=== PATIENT | male | born 1965 | race Caucasian/White ===

== ENCOUNTER 2023-10-17 16:21 | Outpatient (OUT) | payer OTHER, SELFPAY ==
--- NOTE | 2023-10-17 16:50 | XR_ITS ---
The [address] [address] Patient Name: FRANCESCA JHAVERI MRN: [id number] date: 1965 Sex: M Assigned Patient Location: LAB Current Patient Location: LAB Accession/Order Number: [id number] Exam Date: 10/17/2023 16:52 Report Date: 10/17/2023 17:07 At the request of: KATARINA MADRIGAL Procedure: XR chest 2V EXAM: XR chest 2V HISTORY: shortness of breath R06.02 for 4 days. COMPARISON: 02/15/2023 TECHNIQUE: Upright PA and lateral chest x-ray FINDINGS: A very small amount of residual interstitial change and pleural changes are seen in the left mid and lower lung, with some interval improvement. No acute infiltrate, effusion or pneumothorax is otherwise identified. The heart is not enlarged and the vasculature is not distended. Multiple sternal wire sutures and mediastinal clips are present. The osseous structures are grossly intact. XR/XR chest 2V IMPRESSION: Residual changes are seen in the mid and inferior aspect of the left lung, with some interval improvement. The current findings are probably chronic in nature. There is no new infiltrate, effusion or pneumothorax is identified. Electronically authenticated by: DIEGO VELAZQUEZ Date: 10/17/2023 17:07
[2023-10-17 17:00] LABS: Hematocrit 37.5 % (42.0-54.0); Hemoglobin 11.7 g/dL (14.0-18.0); Mean Corpuscular HGB Conc 31.2 g/dL (29.9-35.2); Mean Corpuscular Hemoglobin 31.6 pg (25.9-34.0); Mean Corpuscular Volume 101.4 fL (80.0-94.0); Mean Platelet Volume 10.2 fL (9.5-13.5); Platelet Count 251 10^3/uL (150-450); Red Cell Distribution Width 14.6 % (11.0-15.0); White Blood Count 11.1 10^3/uL (4.0-11.0)
[2023-10-17 17:29] LABS: Anion Gap 19.6; BUN Creatinine Ratio 15.1; Calcium 9.7 mg/dL (8.5-10.1); Carbon Dioxide 21.6 mmol/L (21.0-32.0); Chloride 105 mmol/L (98-107); Estimated GFR (African America 23 (>=60); Estimated GFR (Non-African Ame 19 (>=60); Glucose 128 mg/dL (74-106); Potassium 4.2 mmol/L (3.5-5.1); Sodium 142 mmol/L (136-145); Troponin I High Sensitivity 4.7 pg/mL (4.0-76.1)
[2023-10-17 18:17] LABS: Bilirubin Urine NEGATIVE (NEGATIVE); Blood Urine NEGATIVE (NEGATIVE); Clarity Urine CLEAR (CLEAR); Color Urine YELLOW (YELLOW); Glucose Urine UA 250 mg/dL (NEGATIVE); Ketones Urine NEGATIVE (NEGATIVE); Leukocyte Esterase Urine SMALL (NEGATIVE); Nitrite Urine NEGATIVE (NEGATIVE); Protein Urine 30 mg/dL (NEG/TRACE); Urobilinogen Urine 0.2 EU/dL (0.2-1.0); pH Urine 5.5 (5.0-9.0)
[2023-10-17 18:32] LABS: Band Neutrophils Absolute 0.1 10^3/uL (0.0-0.3); Lymphocytes Absolute Manual 0.66 10^3/uL (1.20-3.80); Monocytes Absolute Manual 0.44 10^3/uL (0.30-0.80); Segmented Neut Absolute Manual 9.87 10^3/uL (1.4-6.5)
[2023-10-17 18:45] LABS: Urine Microscopic Indicated YES
[2023-10-17 19:07] LABS: Bacteria Urine MODERATE #/HPF (NONE SEEN); Cast Seen? NONE SEEN #/LPF (NONE SEEN); Crystals Seen? None Seen #/HPF (None Seen); Mucus Urine NONE SEEN (NONE SEEN); RBC Urine 0-2 #/HPF (0-2); Squamous Epithelial Cell Urine RARE #/LPF (NONE/RARE); Urine Culture Indicated YES
[2023-10-17 19:21] LABS: Estimated Average Glucose 100 mg/dL; Glycohemoglobin A1C 5.1 % (4.5-6.2)
== END 2023-10-17 16:22 | disposition home or self-care (01) ==
LOC: LAB 16:25
PROVIDERS: PCP Family Medicine; Visit Provider Family Medicine
DX: R06.02 Shortness of breath (principal); Z79.899 Other long term (current) drug therapy; E11.65 Type 2 diabetes mellitus with hyperglycemia; R35.89 Other polyuria; I50.32 Chronic diastolic (congestive) heart failure; I25.10 Atherosclerotic heart disease of native coronary artery without angina pectoris
CPT/HCPCS: 36415; 71046; 80048; 81001; 83036; 83880; 84484; 85007; 85027; 87086; 87150; 87186

== ENCOUNTER 2023-11-18 09:55 | Emergency (ER) | payer OTHER, SELFPAY ==
[2023-11-18] VITALS (31 sets, daily range): BP systolic 76–110; BP diastolic 39–67; PULSE 69–90; RESP 4–20; TEMP 36.4; O2SAT 98; BMI 22.7
--- OUTSIDE RECORDS SUMMARY | 2023-11-18 10:14 | XMS_ITS | CCD ---
Author Name Unknown Address [address] [place] [address] Organization [facility] Care Team Providers Care Boot Lace Cutter Machine Name Role Phone PHYSICIAN, DEFAULT Unavailable Unavailable PHYSICIAN, DEFAULT Unavailable Unavailable NADERER, KATARINA Unavailable Unavailable PHYSICIAN, DEFAULT Unavailable Unavailable PHYSICIAN, DEFAULT Unavailable Unavailable NADERER, KATARINA Unavailable Unavailable Ana Anuja Unavailable SAMSA ., JERE Procedure Practitioner Unavailab dipika PAUL ., DR SMALLS Attending Unavailable HOY ., DR SMALLS Consulting Unavailable HOY ., DR SMALLS Admitting Unavailable NADERER, DR KATARINA Peña Primary Care Unavailable NADERER, DR KATARINA Peña Procedure Practitioner Mago LIZARRAGA, DR DEEDEE Krishna Consulting Unavailable NADERER, DR KATARINA Peña Consulting Unavailable SAMSA ., JERE Consulting Unavailable AGUBOSIM, BRANDIN Consulting Unavailable LONG, KAPIL Consulting Unavailable JOHAN, BRANDON Consulting Unavailable BETTY ., DERRICK Consulting Unavailable SAID, BINOR Consulting Unavailable DANIEL, AMAR Consulting Unavailable NADERETomi, DR KATARINA Peña Admitting Unavailable NADERER, DR KATARINA Peña Attending Unavailable NADERER, DR KATARINA Peña Primary Care Unavailable NADERER, DR KATARINA Peña Consulting Unavailable DENVER COX Attending Unavailable DENVER COX Consulting Unavailable DENVER COX Admitting Unavailable NADERER, DR KATARINA Peña Primary Care Unavailable NADERER, DR KATARINA Peña Primary Care Unavailable NADERER, DR KATARINA Peña Admitting Unavailable NADERER, DR KATARINA Peña Attending Unavailable NADERER, DR KATARINA Peña Consulting Unavailable NADERER, DR KATARINA Peña Primary Care Unavailable NADERER, DR KATARINA Peña Admitting Unavailable NADERER, DR KATARINA Peña Attending Unavailable NADERER, DR KATARINA Peña Consulting Unavailable NADERER, DR KATARINA Peña Primary Care Unavailable ROHAN, DR KATARINA Peña Admitting Unavailable ROHAN, DR KATARINA Peña Attending Unavailable ROHAN, DR KATARINA Peña Consulting Unavailable [place], DR FRANCESCA Haynes Consulting Unavailable JIM ., JERE Attending Unavailable JIM Maldonado, JERE Admitting Unavailable ROHAN, DR KATARINA Peña Primary Care Unavailable ROHAN, DR KATARINA Peña Referring Unavailable JERE EVANS Consulting Unavailable DENVER COX Attending Unavailable LAWRENCE CHANG Attending Unavailable ROHAN, KATARINA Attending Unavailable ROHAN, KATARINA Attending Unavailable Medications Current Medications Medication Drug Class(es) Dates Sig (Normalized) Sig (Original) acetaminophen 500 mg oral tablet (1 source) take 2 tablets by mouth every six hours as needed Acetaminophen 500 mg 2 tablet as needed Orally every 6 hrs Active aspirin 81 mg chewable tablet (1 source) Platelet Aggregation Inhibitor, Nonsteroidal Anti-inflammatory Drug take 1 tablet by mouth every twenty-four hours Aspirin 81 MG 1 tablet Orally Once a day Active atorvastatin 40 mg oral tablet (1 source) HMG-CoA Reductase Inhibitor take 1 tablet by mouth every twenty-four hours Lipitor 40 MG 1 tablet Orally Once a day Active 12 hr dextromethorphan hydrobromide 30 mg / guaiFENesin 600 mg extended release oral tablet (1 source) Uncompetitive O-egpeom-X-asparta te Receptor Antagonist, Sigma-1 Agonist Start: 2 take 1 tablet by mouth every twelve hours Mucinex DM 30-600 MG 1 tablet as needed Orally every 12 hrs May, Active doxycycline monohydrate 100 mg oral capsule (1 source) Tetracycline-class Drug Start: 2 take 1 capsule by mouth every twelve hours Doxycycline Monohydrate 100 MG 1 capsule Orally every 12 hrs for 7 days May, Active methylPREDNISolone 4 mg oral tablet (1 source) Corticosteroid Start: 2 methylPREDNISolone 4 MG as directed Orally Once a day for 6 days May, Active metoprolol tartrate 50 mg oral tablet (1 source) beta-Adrenergic [place] take 1 tablet by mouth every twelve hours Metoprolol Tartrate 50 MG 1 tablet with food Orally Twice a day Active omeprazole 40 mg delayed release oral capsule (1 source) Proton Pump Inhibitor take 1 capsule by mouth every twelve hours Omeprazole 40 mg 1 capsule Orally bid Active traMADol hydrochloride 50 mg oral tablet (1 source) Opioid Agonist take 1 tablet by mouth every six hours traMADol HCl 50 MG 1 tablet as needed Orally every 6 hrs Active Problems Active Problems Problem Classification Problem Date Documented Date Episodic/Chronic Allergic reactions (1 source) Allergic contact dermatitis due to plants, except food Episodic Asthma (1 source) Mild intermittent asthma, uncomplicated; Translations: [MILD INTERMIT ASTHMA UNCOMPLICATED] Onset: 2 Chronic Chronic kidney disease (2 sources) Chronic kidney disease stage 3; Translations: [Chronic kidney disease, stage 3 (moderate)] Chronic Chronic kidney disease (1 source) Chronic kidney disease; Translations: [CHRONIC KIDNEY DISEASE STAGE 3A] Onset: 2 Coronary atherosclerosis and other heart disease (7 sources) Atherosclerotic heart disease of [place] coronary artery without angina pectoris; Translations: [ASHD [place] W/O ANGINA PECTORIS] Onset: 2 Chronic Deficiency and other anemia (1 source) Anemia of renal disease; Translations: [Anemia in chronic kidney disease] Chronic Diabetes mellitus with complications (4 sources) Type 2 diabetes mellitus; Translations: [Type 2 diabetes mellitus with diabetic chronic kidney disease] Onset: 2 Chronic Essential hypertension (3 sources) Essential (primary) hypertension; Translations: [ESSENTIAL PRIMARY HYPERTENSION] Onset: 3 Chronic Hypertension with complications and secondary hypertension (4 sources) Hypertensive renal disease; Translations: [Hypertensive chronic kidney disease with stage 1 through stage 4 chronic kidney disease, or unspecified chronic kidney disease] Onset: 2 Chronic Immunizations and screening for infectious disease (1 source) Contact with and (suspected) exposure to other viral communicable diseases Episodic Nutritional deficiencies (1 source) Vitamin D deficiency, unspecified; Translations: [VITAMIN D DEFICIENCY UNSPECIFIED] Onset: 3 Chronic Other diseases of kidney and ureters (1 source) Secondary hyperparathyroidism; Translations: [Secondary hyperparathyroidism of renal origin] Chronic Other screening for suspected conditions (not mental disorders or infectious disease) (2 sources) Encounter for screening for malignant neoplasm of prostate; Translations: [Other specified abnormal findings of blood chemistry] Onset: 2 Episodic Unclassified (1 source) CONTACT W/AND (SUSP) EXPOS COVID-19; Translations: [CONTACT W/AND (SUSP) EXPOS COVID-19] Onset: 2 Past or Other Problems Problem Classification Problem Date Documented Da te Episodic/Chronic Coronary atherosclerosis and other heart disease (1 source) Presence of aortocoronary bypass graft; Translations: [PRESENCE AORTOCORONARY BYPASS GRAFT] Onset: 03-30-2022 Episodic Lymphadenitis (1 source) Generalized enlarged lymph nodes; Translations: [GENERALIZED ENLARGED LYMPH NODES] Onset: 03-30-2022 Episodic Other aftercare (1 source) ferry terminal supervisor (current) use of aspirin; Translations: [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 CURRENT USE OF ASPIRIN] Onset: 03-30-2022 Episodic Other aftercare (1 source) Other halfway (current) drug therapy; Translations: [OTH CARE HOME CURRENT DRUG THERAPY] Onset: 03-30-2022 Episodic Other gastrointestinal disorders (1 source) Diarrhea, unspecified; Translations: [DIARRHEA UNSPECIFIED] Onset: 03-30-2022 Episodic Other lower respiratory disease (3 sources) Other forms of dyspnea; Translations: [OTHER FORMS OF DYSPNEA] Onset: 12-01-2022 Episodic Other lower respiratory disease (1 source) Other disorders of lung; Translations: [OTHER DISORDERS OF LUNG] Onset: 04-07-2022 Episodic Other lower respiratory disease (1 source) Solitary pulmonary nodule; Translations: [SOLITARY PULMONARY NODULE] Onset: 03-30-2022 Episodic Pleurisy; pneumothorax; pulmonary collapse (1 source) Pleurisy; Translations: [PLEURISY] Onset: 03-30-2022 Episodic Pneumonia (except that caused by tuberculosis or sexually transmitted disease) (5 sources) Pneumonia, unspecified organism; Translations: [PNEUMONIA UNSPECIFIED ORGANISM] Onset: 03-30-2022 Episodic Screening and history of mental health and substance abuse codes (1 source) Personal history of nicotine dependence; Translations: [PERSONAL HISTORY OF NICOTINE DEPEND] Onset: 03-30-2022 Episodic Septicemia (except in labor) (3 sources) Sepsis, unspecified organism; Translations: [SEPSIS UNSPECIFIED ORGANISM] Onset: 03-15-2022 Episodic Viral infection (1 source) COVID-19 Results Test Name Value Interpretation Reference Range Facility Office Visiton 06-21-2023 Follow-up visit [id number] Francesca Jhaveri 1965 M Date Provider Department Center 06/21/2023 [facility] Laura Bates Family History Problem Relation Age of Onset Hypertension Father Family Status - Relation Status Age at Father Level of Service:76697 DC OFFICE/OUTPATIENT ESTABLISHED MOD MDM 30-39 MIN [facility] 36on 03-03-2023 36 I updated my last office note from November with the clearance. Thanks [facility] 36 Did he have ECHO done? [facility] ECHOCARDIO M/2D COMPLETEon 0 12-20-2022 ECHOCARDIO M/2D COMPLETE Patient: FRANCESCA JHAVERI Exam Date: 12/20/2022 : 1965 Gender:M Ordering : [facility] Admission #: [id number] Family : DR KATARINA MADRIGAL . Order #: [id number] CLICK HERE TO VIEW EXAM ECHOCARDIOGRAM REPORT PROCEDURE: CARDIO PULMONARY ECHOCARDIO M/2D COMP INDICATIONS: Dyspnea on exertion, hypertension, CABG x 3 COMPARISON: None. DESCRIPTION: COMPLETE ECHOCARDIOGRAM Real-time transthoracic echocardiography with 2D, M-mode, spectral and color flow Doppler performed. QUALITY: Technical quality was good. LEFT VENTRICLE: Normal chamber size. Normal left ventricular wall thickness. Systolic function is at the lower limits of normal. LV EF: Lower limits of normal left ventricular ejection fraction, (50-55%). DIASTOLIC: Grade I diastolic dysfunction. ATRIAL SEPTUM: Visually appears intact. LEFT ATRIUM: Normal chamber size. RIGHT ATRIUM: Normal chamber size. RIGHT VENTRICLE: Normal chamber size. Normal right ventricular systolic function. TRICUSPID VALVE: Normal mobility and thickness. No stenosis with trivial regurgitation. No evidence of pulmonary hypertension. RVSP 28 mmHg MITRAL VALVE: Normal mobility and thickness. No evidence of mitral valve stenosis. There is no mitral annular calcification. Trivial mitral regurgitation. AORTIC VALVE: Normal trileaflet appearance. No visible sclerosis. Normal leaflet mobility. No evidence of aortic valve stenosis. No aortic regurgitation. AORTIC ROOT: Normal diameter and appearance. PULMONIC VALVE: Normal thickness and mobility. No stenosis. Trivial regurgitation. PERICARDIUM: No evidence of pericardial effusion. IVC: Collapses with inspirations. PLEURA: CONCLUSION: 1. Left ventricular systolic function is at the lower limits of normal. LVEF is 50-55%. 2. Normal right ventricular size and systolic function. 3. Grade I diastolic dysfunction. 4. No significant valvular dysfunction. 5. Normal right sided pressures. Adult Echocardiography Procedure Report Left Ventricle LVEDD (3.7 - 5.6 cm): 4.60 cm LVESD (2.2 - 4.0 cm): 2.84 cm LVIVS thickness (0.6 - 1.2 cm): 0.97 cm LVPW thickness (0.5 - 1.0 cm): 0.94 cm e': 0.13 m/s E - e': 4.97 LVOT Max Gradient: 2.49 mm[Hg] Peak Velocity (LVOT): 0.79 m/s Mean Velocity (LVOT): 0.44 m/s LVOT Diameter 2.25 cm Left Ventricular Ejection Fraction: 50-55 % Left Atrium LA Volume Index (2D A2C): 51.45 ml, 51.45 ml Left Atrium Systolic Dimension: 3.58 cm Mitral Valve MV E to A Ratio: 0.87 Mitral Valve A-Wave Peak Velocity: 0.76 m/s Mitral Valve E-Wave Peak Velocity: 0.66 m/s Right Ventricle Aorta AO Root Diam: 2.87 cm Aortic Valve AoV Area (Peak Omega): 2.44 cm2, 2.44 cm2 AoV Area (VTI): 2.37 cm2, 2.37 cm2 Peak Velocity(Antegrade Flow): 1.28 m/s Peak Gradient(Antegrade Flow): 6.59 mm[Hg] Mean Velocity(Antegrade Flow): 0.83 m/s Mean Gradient(Antegrade Flow): 3.17 mm[Hg] Velocity Time Integral: 26.47 cm Tricuspid Valve Peak Velocity (Regurgitant Flow): 2.34 m/s, 2.48 m/s Peak Velocity: 0.41 m/s Pulmonic Valve Mean Gradient: 2.38 mm[Hg], 2.16 mm[Hg] Mean Velocity: 0.73 m/s, 0.69 m/s Peak Velocity: 1.01 m/s, 0.98 m/s Peak Gradient: 4.10 mm[Hg], 3.81 mm[Hg] Right Atrium Right Atrium Systolic Pressure: 28.58 ml, 28.58 ml Dictated by: John Lucas M.D. on 12/21/2022 at 17:18 Approved by: John Lucas M.D. on 12/21/2022 at 17:27 [facility] Office Visiton 12-01-2022 Follow-up visit [id number] Francesca Jhaveri 1965 M Date Provider Department Center 12/01/2022 [facility] Family History Problem Relation Age of Onset Hypertension Father Family Status - Relation Status Age at Father Level of Service:04389 DC OFFICE/OUTPATIENT ESTABLISHED MOD MDM 30-39 MIN Reason for Visit and Comments: Coronary Artery Disease [187] Hypertension [127582] Hyperlipidemia [182] Peripheral Vascular Disease [458] Normal [facility] CBC AUTO DIFFon 11-15-2022 BASO # 0.1 103/ul Normal 0.0-0.1 [facility] Comment on above: Performed By: #### A 1C #### [facility] [address] [place] [address] Dr. Fred Bell Basophils/100 WBC (Bld) 0.9 % Normal 0.2-2.0 [facility] Comment on above: Performed By: #### A 1C #### [facility] [address] [place] [address] Dr. Fred Bell EO # 0.3 103/ul Normal 0.0-0.7 [facility] Comment on above: Performed By: #### A 1C #### [facility] [address] [place] [address] Dr. Fred Bell Eosinophils/100 WBC (Bld) 2.9 % Normal 0.9-7.0 [facility] Comment on above: Performed By: #### A 1C #### [facility] [address] [place] [address] Dr. Fred Bell Erythrocyte distribution width (RBC) [Ratio] 14.3 % Normal 11.0-15.0 [facility] Comment on above: Performed By: #### A 1C #### [facility] [address] [place] [address] Dr. Fred Bell Hematocrit (Bld) [Volume fraction] 41.6 % Critically low 42.0-54.0 [facility] Comment on above: Performed By: #### A 1C #### [facility] [address] [place] [address] Dr. Fred Bell Hemoglobin (Bld) [Mass/Vol] 13.6 g/dL Critically low 14.0-18.0 [facility] Comment on above: Performed By: #### A 1C #### [facility] [address] [place] [address] Dr. Fred Bell IG # 0.03 10e3/ul Normal 0.00-0.03 [facility] Comment on above: Performed By: #### A 1C #### [facility] [address] [place] [address] Dr. Fred Bell IG % 0.4 % Normal 0.0-0.5 [facility] Comment on above: Performed By: #### A 1C #### [facility] [address] [place] [address] Dr. Fred Bell LYMPH # 2.0 103/ul Normal 1.2-3.8 [facility] Comment on above: Performed By: #### A 1C #### [facility] [address] [place] [address] Dr. Fred Bell Lymphocytes/100 WBC (Bld) 23.3 % Normal 20.5-60.0 [facility] Comment on above: Performed By: #### A 1C #### [facility] [address] [place] [address] Dr. Fred Bell MANUAL DIFF REQ NO Normal [facility] Comment on above: Performed By: #### A 1C #### [facility] [address] [place] [address] Dr. Fred Bell MCH (RBC) [Entitic mass] 29.8 pg Normal 25.9-34.0 [facility] Comment on above: Performed By: #### A 1C #### [facility] [address] [place] [address] Dr. Fred Bell MCHC (RBC) [Mass/Vol] 32.7 g/dL Normal 29.9-35.2 [facility] Comment on above: Performed By: #### A 1C #### [facility] [address] [place] [address] Dr. Fred Bell MCV (RBC) [Entitic vol] 91.0 fL Normal 80.0-94.0 [facility] Comment on above: Performed By: #### A 1C #### [facility] [address] [place] [address] Dr. Fred Bell MONO # 0.6 103/ul Normal 0.3-0.8 [facility] Comment on above: Performed By: #### A 1C #### [facility] [address] [place] [address] Dr. Fred Bell Monocytes/100 WBC (Bld) 6.7 % Normal 1.7-12.0 [facility] Comment on above: Performed By: #### A 1C #### [facility] [address] [place] [address] Dr. Fred Bell NEUT # 5.6 103/ul Normal 1.4-6.5 [facility] Comment on above: Performed By: #### A 1C #### [facility] [address] [place] [address] Dr. Fred Bell Neutrophils/100 WBC (Bld) 65.8 % Normal 43.0-75.0 [facility] Comment on above: Performed By: #### A 1C #### [facility] [address] [place] [address] Dr. Fred Bell Platelet mean volume (Bld) [Entitic vol] 9.7 fL Normal 9.5-13.5 [facility] Comment on above: Performed By: #### A 1C #### [facility] [address] [place] [address] Dr. Fred Bell PLT 289 103/ul Normal 150-450 [facility] Comment on above: Performed By: #### A 1C #### [facility] [address] [place] [address] Dr. Fred Bell RBC 4.57 106/ul Critically low 4.70-6.10 [facility] Comment on above: Performed By: #### A 1C #### [facility] [address] [place] [address] Dr. Fred Bell WBC 8.5 103/ul Normal 4.0-11.0 [facility] Comment on above: Performed By: #### A 1C #### [facility] [address] [address] [address] Fred Bell GLYCOHEMOGLOBIN A1Con 2022 ADA RECOMMENDATION SEE BELOW Normal [facility] Comment on above: Result Comment: ADA RECOMMENDED LIMIT 4.0 - 6.0 ADA THERAPEUTIC TARGET < 7.0 ACTION SUGGESTED > 7.0 Performed By: #### A 1C #### [facility] [address] [address] [address] Fred Bell Glucose [Mass/Vol] 111 mg/dL Normal [facility] Comment on above: Performed By: #### A 1C #### [facility] [address] [place] [address] Dr. Fred Bell HbA1c (Bld) [Mass fraction] 5.5 % Normal 4.5-6.2 [facility] Comment on above: Performed By: #### A 1C #### [facility] [address] [address] [address] Fred Bell LIPID PROFILEon 11-15-2022 CHOL-HDL RATIO NORM SEE BELOW Normal [facility] Comment on above: Result Comment: 3.3 - 4.4 LOW RISK 4.4 - 7.1 AVERAGE RISK 7.1 - 11.0 MODERATE RISK >11.0 HIGH RISK Performed By: #### V ANCT #### [facility] [address] [place] [address] Dr. Fred Bell Cholesterol [Mass/Vol] 210 mg/dL Critically high <=200 [facility] Comment on above: Performed By: #### V ANCT #### [facility] [address] [address] [address] Fred Bell Cholesterol in HDL [Mass/Vol] 101 mg/dL Critically high 40-60 [facility] Comment on above: Performed By: #### V ANCT #### [facility] [address] [address] [address] Fred Bell Cholesterol in LDL [Mass/Vol] 94.2 mg/dL Normal [facility] Comment on above: Performed By: #### V ANCT #### [facility] [address] [place] [address] Dr. Fred Bell Cholesterol.total/Ch olesterol in HDL [Mass ratio] 2.1 {ratio} Normal [facility] Comment on above: Performed By: #### V ANCT #### [facility] [address] [place] [address] Dr. Fred Bell HDL NORMAL > or = 60 mg/dl - LOW CARDIOVASCULAR RISK <40 mg/dl - HIGH CARDIOVASCULAR RISK Normal [facility] Comment on above: Performed By: #### V ANCT #### [facility] [address] [place] [address] Dr. Fred Bell LDL CALC NORMAL SEE BELOW Normal [facility] Comment on above: Result Comment: <100 mg/dl OPTIMAL 100 - 129 mg/dl NEAR OR ABOVE OPTIMAL 130 - 159 mg/dl BORDERLINE HIGH 160 - 189 mg/dl HIGH >190 mg/dl VERY HIGH Performed By: #### V ANCT #### [facility] [address] [place] [address] Dr. Fred Bell Triglyceride [Mass/Vol] 74 mg/dL Normal <=150 [facility] Comment on above: Performed By: #### V ANCT #### [facility] [address] [place] [address] Dr. Fred Bell VLDL CALC 14.8 mg/dL Normal [facility] Comment on above: Performed By: #### V ANCT #### [facility] [address] [place] [address] Dr. Fred Bell LIVER PROFILEon 11-15-2022 Albumin [Mass/Vol] 4.2 g/dL Normal 3.4-5.0 [facility] Comment on above: Performed By: #### V ANCT #### [facility] [address] [place] [address] Dr. Fred Bell Albumin/Globulin [Mass ratio] 1.0 {ratio} Normal [facility] Comment on above: Performed By: #### V ANCT #### [facility] [address] [place] [address] Dr. Fred Bell ALP [Catalytic activity/Vol] 154 U/L Critically high 46-116 [facility] Comment on above: Performed By: #### V ANCT #### [facility] [address] [address] [address] Fred Bell ALT [Catalytic activity/Vol] 33 U/L Normal 16-63 [facility] Comment on above: Performed By: #### V ANCT #### [facility] [address] [address] [address] Fred Bell AST [Catalytic activity/Vol] 40 U/L Critically high 15-37 [facility] Comment on above: Performed By: #### V ANCT #### [facility] [address] [address] [address] Fred Bell BILI, CONJUGATED 0.2 mg/dL Normal 0.0-0.2 [facility] Comment on above: Performed By: #### V ANCT #### [facility] [address] [address] [address] Fred Bell Bilirubin [Mass/Vol] 0.8 mg/dL Normal 0.2-1.0 [facility] Comment on above: Performed By: #### V ANCT #### [facility] [address] [address] [address] Fred Bell Globulin (S) [Mass/Vol] 4.1 g/dL Normal [facility] Comment on above: Performed By: #### V ANCT #### [facility] [address] [address] [address] Fred Bell Protein [Mass/Vol] 8.3 g/dL Critically high 6.4-8.2 [facility] Comment on above: Performed By: #### V ANCT #### [facility] [address] [address] [address] Fred Bell PROF CHEM 8 (BAS METB)on Anion gap [Moles/Vol] 14.5 mmol/L Normal [facility] Comment on above: Performed By: #### V ANCT #### [facility] [address] [address] [address] Fred Bell Calcium [Mass/Vol] 9.4 mg/dL Normal 8.5-10.1 [facility] Comment on above: Performed By: #### V ANCT #### [facility] [address] [place] [address] Dr. Fred Bell Chloride [Moles/Vol] 104 mmol/L Normal 98-107 [facility] Comment on above: Performed By: #### V ANCT #### [facility] [address] [place] [address] Dr. Fred Bell CO2 [Moles/Vol] 26.6 mmol/L Normal 21.0-32.0 [facility] Comment on above: Performed By: #### V ANCT #### [facility] [address] [place] [address] Dr. Fred Bell Creatinine [Mass/Vol] 1.55 mg/dL Critically high 0.70-1.30 [facility] Comment on above: Performed By: #### V ANCT #### [facility] [address] [place] [address] Dr. Fred Bell EGFR-AF CAMEROONIAN 56 mL/min/1.73m2 Critically low >=60 [facility] Comment on above: Performed By: #### V ANCT #### [facility] [address] [place] [address] Dr. Fred Bell EGFR-NON AF CAMEROONIAN 47 mL/min/1.73m2 Critically low >=60 [facility] Comment on above: Performed By: #### V ANCT #### [facility] [address] [place] [address] Dr. Fred Bell Glucose [Mass/Vol] 95 mg/dL Normal 74-106 [facility] Comment on above: Performed By: #### V ANCT #### [facility] [address] [place] [address] Dr. Fred Bell Potassium [Moles/Vol] 4.1 mmol/L Normal 3.5-5.1 [facility] Comment on above: Performed By: #### V ANCT #### [facility] [address] [place] [address] Dr. Fred Bell Sodium [Moles/Vol] 141 mmol/L Normal 136-145 [facility] Comment on above: Performed By: #### V ANCT #### [facility] [address] [place] [address] Dr. Fred Bell Urea nitrogen [Mass/Vol] 23.0 mg/dL Critically high 7.0-18.0 [facility] Comment on above: Performed By: #### V ANCT #### [facility] [address] [place] [address] Dr. Fred Bell Urea nitrogen/Creatinine [Mass ratio] 14.8 mg/mg Normal [facility] Comment on above: Performed By: #### V ANCT #### [facility] [address] [place] [address] Dr. Fred Bell TSHon 11-15-2022 TSH 0.726 uIU/mL Normal 0.358-3.740 [facility] Comment on above: Performed By: #### V ANCT #### [facility] [address] [place] [address] Dr. Fred Bell VITAMIN D 25 OHon 11-15-2022 VIT D 25-OH 33.2 ng/mL Normal [facility] Comment on above: Performed By: #### V ANCT #### [facility] [address] [place] [address] Dr. Fred Bell VIT D RANGES SEE BELOW Normal [facility] Comment on above: Result Comment: <20 ng/mL Vit D deficient 20 - <30 ng/mL Vit D insufficient 30 - 100 ng/mL Vit D sufficient >100 ng/mL Potential Toxicity Performed By: #### V ANCT #### [facility] [address] [place] [address] Dr. Fred Bell COVID Quick Testingon 2021 Result Positive Chideo Other ACID FAST SMEAR AND CXon Acid Fast Culture Negative Normal [facility] Comment on above: Result Comment: No a raven fast bacilli isolated after 6 weeks. Performed By: #### B MP #### [facility] [address] [place] [address] Dr. Fred Bell Acid Fast Smear Negative Normal [facility] Comment on above: Performed By: #### B MP #### [facility] [address] [address] [address] Fred Bell AFB Specimen Processing Concentration Normal [facility] Comment on above: Performed By: #### B MP #### [facility] [address] [address] [address] Fred Bell FUNGAL CULTUREon 04-14-2022 Fungus (Mycology) Culture Final report [facility] Comment on above: Performed By: #### B MP #### [facility] [address] [address] [address] Fred Bell Fungus Stain Final report Normal [facility] Comment on above: Performed By: #### B MP #### [facility] [address] [place] [address] Dr. Fred Bell Result [address] [facility] Comment on above: Result Comment: ELIE/ Calcofluor preparation: no fungus observed. Performed By: #### B MP #### [facility] [address] [place] [address] Dr. Fred Bell Result Comment: No y east or mold isolated after [address] CHEST WO CONon 04-06-2022 CT CHEST WO CON EXAMINATION: CT CHEST WO CON HISTORY: Pneumonia COMPARISON: 03/18/2022 TECHNIQUE: Multi-planar CT images were created with IV contrast. Axial, Coronal, and Sagittal images. Dose reduction techniques were achieved by using automated exposure control and/or adjustment of mA and/or kV according to patient size and/or use of iterative reconstruction technique. FINDINGS: LUNGS: Interval change in configuration of left lung cavitary masses with persistent ill-defined areas, the largest is an irregular soft tissue attenuation mass measuring 8.3 x 3.8 cm on axial image 69 measuring 3.8 cm in craniocaudal dimension. There is associated parenchymal distortion and peribronchial thickening. PLEURA: 1.3 cm left pleural effusion VASCULATURE: No abnormality. REGAN: bilateral hilar lymph nodes, grossly stable MEDIASTINUM: pretracheal and subcarinal lymph nodes, stable in number and size CARDIAC: No enlargement or pericardial effusion. Atherosclerosis. AORTA: No aneurysm or dissection. CHEST WALL: No mass or axillary adenopathy. BONES: Remote posterior rib fractures. Median sternotomy wires. LIMITED ABDOMEN: No suspicious findings. Limited images of the upper abdomen. OTHER: Negative. IMPRESSION: Interval change in configuration of left lung soft tissue masses with architectural distortion pleural effusion and peribronchial thickening. Stable hilar and mediastinal lymphadenopathy. Healing inflammatory, infectious or granulomatous process is suspected. Malignancy is not excluded. Consider PET/CT to evaluate metabolic status Electronically authenticated by: FRANCESCA BUENO Date: 2022-04-05 22:22 Normal [facility] CREATININEon 04-05-2022 Creatinine [Mass/Vol] 1.80 mg/dL Critically high 0.70-1.30 [facility] Comment on above: Performed By: #### P OCGLUC #### [facility] [address] [place] [address] Dr. Fred Bell EGFR-AF CAMEROONIAN 48 mL/min/1.73m2 Critically low >=60 [facility] Comment on above: Performed By: #### P OCGLUC #### [facility] [address] [place] [address] Dr. Fred Bell EGFR-NON AF CAMEROONIAN 39 mL/min/1.73m2 Critically low >=60 [facility] Comment on above: Performed By: #### P OCGLUC #### [facility] [address] [place] [address] Dr. Fred Bell BUNon 03-30-2022 Urea nitrogen [Mass/Vol] 22.0 mg/dL Critically high 7.0-18.0 [facility] Comment on above: Performed By: #### B MP #### [facility] [address] [place] [address] Dr. Fred Bell CBC AUTO DIFFon 03-30-2022 BASO # 0.2 103/ul Critically high 0.0-0.1 [facility] Comment on above: Performed By: #### C DIFPOC #### [facility] [address] [place] [address] Dr. Fred Bell Basophils/100 WBC (Bld) 1.8 % Normal 0.2-2.0 [facility] Comment on above: Performed By: #### C DIFPOC #### [facility] [address] [place] [address] Dr. Fred Bell EO # 0.6 103/ul Normal 0.0-0.7 [facility] Comment on above: Performed By: #### C DIFPOC #### [facility] [address] [place] [address] Dr. Fred Bell Eosinophils/100 WBC (Bld) 4.8 % Normal 0.9-7.0 [facility] Comment on above: Performed By: #### C DIFPOC #### [facility] [address] [place] [address] Dr. Fred Bell Erythrocyte distribution width (RBC) [Ratio] 17.7 % Critically high 11.0-15.0 [facility] Comment on above: Performed By: #### C DIFPOC #### [facility] [address] [place] [address] Dr. Fred Bell Hematocrit (Bld) [Volume fraction] 27.0 % Critically low 42.0-54.0 [facility] Comment on above: Performed By: #### C DIFPOC #### [facility] [address] [place] [address] Dr. Fred Bell Hemoglobin (Bld) [Mass/Vol] 8.4 g/dL Critically low 14.0-18.0 [facility] Comment on above: Performed By: #### C DIFPOC #### [facility] [address] [place] [address] Dr. Fred Bell IG # 0.04 10e3/ul Critically high 0.00-0.[address] [facility] Comment on above: Performed By: #### C DIFPOC #### [facility] [address] [place] [address] Dr. Fred Bell IG % 0.3 % Normal 0.0-0.5 [facility] Comment on above: Performed By: #### C DIFPOC #### [facility] [address] [place] [address] Dr. Fred Bell LYMPH # 2.1 103/ul Normal 1.2-3.8 [facility] Comment on above: Performed By: #### C DIFPOC #### [facility] [address] [place] [address] Dr. Fred Bell Lymphocytes/100 WBC (Bld) 17.2 % Critically low 20.5-60.0 [facility] Comment on above: Performed By: #### C DIFPOC #### [facility] [address] [place] [address] Dr. Fred Bell MANUAL DIFF REQ NO Normal [facility] Comment on above: Performed By: #### C DIFPOC #### [facility] [address] [place] [address] Dr. Fred Bell MCH (RBC) [Entitic mass] 27.9 pg Normal 25.9-34.0 [facility] Comment on above: Performed By: #### C DIFPOC #### [facility] [address] [place] [address] Dr. Fred Bell MCHC (RBC) [Mass/Vol] 31.1 g/dL Normal 29.9-35.2 [facility] Comment on above: Performed By: #### C DIFPOC #### [facility] [address] [place] [address] Dr. Fred Bell MCV (RBC) [Entitic vol] 89.7 fL Normal 80.0-94.0 [facility] Comment on above: Performed By: #### C DIFPOC #### [facility] [address] [place] [address] Dr. Fred Bell MONO # 0.6 103/ul Normal 0.3-0.8 [facility] Comment on above: Performed By: #### C DIFPOC #### [facility] [address] [place] [address] Dr. Fred Bell Monocytes/100 WBC (Bld) 5.1 % Normal 1.7-12.0 [facility] Comment on above: Performed By: #### C DIFPOC #### [facility] [address] [place] [address] Dr. Fred Bell NEUT # 8.5 103/ul Critically high 1.4-6.5 [facility] Comment on above: Performed By: #### C DIFPOC #### [facility] [address] [place] [address] Dr. Fred Bell Neutrophils/100 WBC (Bld) 70.8 % Normal 43.0-75.0 [facility] Comment on above: Performed By: #### C DIFPOC #### [facility] [address] [place] [address] Dr. Fred Bell Platelet mean volume (Bld) [Entitic vol] 9.1 fL Critically low 9.5-13.5 [facility] Comment on above: Performed By: #### C DIFPOC #### [facility] [address] [place] [address] Dr. Fred Bell PLT 599 103/ul Critically high 150-450 [facility] Comment on above: Performed By: #### C DIFPOC #### [facility] [address] [place] [address] Dr. Fred Bell RBC 3.01 106/ul Critically low 4.70-6.10 [facility] Comment on above: Performed By: #### C DIFPOC #### [facility] [address] [place] [address] Dr. Fred Bell WBC 11.9 103/ul Critically high 4.0-11.0 [facility] Comment on above: Performed By: #### C DIFPOC #### [facility] [address] [place] [address] Dr. Fred Bell CREATININEon 03-30-2022 Creatinine [Mass/Vol] 1.89 mg/dL Critically high 0.70-1.30 [facility] Comment on above: Performed By: #### B MP #### [facility] [address] [place] [address] Dr. Fred Bell EGFR-AF CAMEROONIAN 45 mL/min/1.73m2 Critically low >=60 [facility] Comment on above: Performed By: #### B MP #### [facility] [address] [place] [address] Dr. Fred Bell EGFR-NON AF CAMEROONIAN 37 mL/min/1.73m2 Critically low >=60 [facility] Comment on above: Performed By: #### B MP #### [facility] [address] [address] [address] Fred Bell VANCOMYCIN TROUGHon 03-30-20 22 VANCOMYCIN TROUGH 13.5 ug/ml Normal 5.0-20.0 [facility] Comment on above: Performed By: #### A 1C #### [facility] [address] [address] [address] Fred Bell CREATININEon 03-25-2022 Creatinine [Mass/Vol] 1.88 mg/dL Critically high 0.70-1.30 [facility] Comment on above: Performed By: #### P OCGLUC #### [facility] [address] [place] [address] Dr. Fred Bell EGFR-AF CAMEROONIAN 45 mL/min/1.73m2 Critically low >=60 [facility] Comment on above: Performed By: #### P OCGLUC #### [facility] [address] [place] [address] Dr. Fred Bell EGFR-NON AF CAMEROONIAN 37 mL/min/1.73m2 Critically low >=60 [facility] Comment on above: Performed By: #### P OCGLUC #### [facility] [address] [place] [address] Dr. Fred Bell VANCOMYCIN RANDOMon 03-25-20 22 VANCOMYCIN RANDOM 17.6 ug/ml Normal [facility] Comment on above: Performed By: #### V ANCT #### [facility] [address] [place] [address] Dr. Fred Bell CBC AUTO DIFFon 03-23-2022 BASO # 0.2 103/ul Critically high 0.0-0.1 [facility] Comment on above: Performed By: #### P OCGLUC #### [facility] [address] [place] [address] Dr. Fred Bell Basophils/100 WBC (Bld) 0.8 % Normal 0.2-2.0 [facility] Comment on above: Performed By: #### P OCGLUC #### [facility] [address] [address] [address] Fred Bell EO # 0.6 103/ul Normal 0.0-0.7 [facility] Comment on above: Performed By: #### P OCGLUC #### [facility] [address] [address] [address] Fred Bell Eosinophils/100 WBC (Bld) 3.0 % Normal 0.9-7.0 [facility] Comment on above: Performed By: #### P OCGLUC #### [facility] [address] [address] [address] Fred Bell Erythrocyte distribution width (RBC) [Ratio] 16.5 % Critically high 11.0-15.0 [facility] Comment on above: Performed By: #### P OCGLUC #### [facility] [address] [place] [address] Dr. Fred Bell Hematocrit (Bld) [Volume fraction] 26.9 % Critically low 42.0-54.0 [facility] Comment on above: Performed By: #### P OCGLUC #### [facility] [address] [place] [address] Dr. Fred Bell Hemoglobin (Bld) [Mass/Vol] 8.0 g/dL Critically low 14.0-18.0 [facility] Comment on above: Performed By: #### P OCGLUC #### [facility] [address] [address] [address] Fred Bell IG # 0.33 10e3/ul Critically high 0.00-0.[address] [facility] Comment on above: Performed By: #### P OCGLUC #### [facility] [address] [address] [address] Fred Bell IG % 1.8 % Critically high 0.0-0.5 [facility] Comment on above: Performed By: #### P OCGLUC #### [facility] [address] [place] [address] Dr. Fred Bell LYMPH # 2.1 103/ul Normal 1.2-3.8 [facility] Comment on above: Performed By: #### P OCGLUC #### [facility] [address] [address] [address] Fred Bell Lymphocytes/100 WBC (Bld) 11.1 % Critically low 20.5-60.0 [facility] Comment on above: Performed By: #### P OCGLUC #### [facility] [address] [address] [address] Fred Bell MANUAL DIFF REQ NO Normal [facility] Comment on above: Performed By: #### P OCGLUC #### [facility] [address] [address] [address] Fred Bell MCH (RBC) [Entitic mass] 26.8 pg Normal 25.9-34.0 [facility] Comment on above: Performed By: #### P OCGLUC #### [facility] [address] [place] [address] Dr. Fred Bell MCHC (RBC) [Mass/Vol] 29.7 g/dL Critically low 29.9-35.2 [facility] Comment on above: Performed By: #### P OCGLUC #### [facility] [address] [place] [address] Dr. Fred Bell MCV (RBC) [Entitic vol] 90.0 fL Normal 80.0-94.0 [facility] Comment on above: Performed By: #### P OCGLUC #### [facility] [address] [place] [address] Dr. Fred Bell MONO # 1.0 103/ul Critically high 0.3-0.8 [facility] Comment on above: Performed By: #### P OCGLUC #### [facility] [address] [place] [address] Dr. Fred Bell Monocytes/100 WBC (Bld) 5.2 % Normal 1.7-12.0 [facility] Comment on above: Performed By: #### P OCGLUC #### [facility] [address] [place] [address] Dr. Fred Bell NEUT # 14.5 103/ul Critically high 1.4-6.5 [facility] Comment on above: Performed By: #### P OCGLUC #### [facility] [address] [address] [address] Fred Bell Neutrophils/100 WBC (Bld) 78.1 % Critically high 43.0-75.0 [facility] Comment on above: Performed By: #### P OCGLUC #### [facility] [address] [address] [address] Fred Bell Platelet mean volume (Bld) [Entitic vol] 8.9 fL Critically low 9.5-13.5 [facility] Comment on above: Performed By: #### P OCGLUC #### [facility] [address] [address] [address] Fred Bell PLT 705 103/ul Critically high 150-450 [facility] Comment on above: Performed By: #### P OCGLUC #### [facility] [address] [address] [address] Fred Bell RBC 2.99 106/ul Critically low 4.70-6.10 [facility] Comment on above: Performed By: #### P OCGLUC #### [facility] [address] [address] [address] Fred Bell WBC 18.5 103/ul Critically high 4.0-11.0 [facility] Comment on above: Performed By: #### P OCGLUC #### [facility] [address] [address] [address] Fred Bell CREATININEon 03-23-2022 Creatinine [Mass/Vol] 1.88 mg/dL Critically high 0.70-1.30 [facility] Comment on above: Performed By: #### C DIFPOC #### [facility] [address] [address] [address] Fred Bell EGFR-AF CAMEROONIAN 45 mL/min/1.73m2 Critically low >=60 [facility] Comment on above: Performed By: #### C DIFPOC #### [facility] [address] [address] [address] Fred Bell EGFR-NON AF CAMEROONIAN 37 mL/min/1.73m2 Critically low >=60 [facility] Comment on above: Performed By: #### C DIFPOC #### [facility] [address] [place] [address] Dr. Fred Bell VANCOMYCIN TROUGHon 03-23-20 VANCOMYCIN TROUGH 25.7 ug/ml Critically high 5.0-20.0 [facility] Comment on above: Performed By: #### V ANCT #### [facility] [address] [place] [address] Dr. Fred Bell CBC AUTO DIFFon 03-19-2022 BASO # 0.1 103/ul Normal 0.0-0.1 [facility] Comment on above: Performed By: #### C BC #### [facility] [address] [place] [address] Dr. Fred Bell Basophils/100 WBC (Bld) 0.3 % Normal 0.2-2.0 [facility] Comment on above: Performed By: #### C BC #### [facility] [address] [place] [address] Dr. Fred Bell EO # 0.4 103/ul Normal 0.0-0.7 [facility] Comment on above: Performed By: #### C BC #### [facility] [address] [place] [address] Dr. Fred Bell Eosinophils/100 WBC (Bld) 1.7 % Normal 0.9-7.0 [facility] Comment on above: Performed By: #### C BC #### [facility] [address] [place] [address] Dr. Fred Bell Erythrocyte distribution width (RBC) [Ratio] 16.4 % Critically high 11.0-15.0 [facility] Comment on above: Performed By: #### C BC #### [facility] [address] [place] [address] Dr. Fred Bell Hematocrit (Bld) [Volume fraction] 34.0 % Critically low 42.0-54.0 [facility] Comment on above: Performed By: #### C BC #### [facility] [address] [place] [address] Dr. Fred Bell Hemoglobin (Bld) [Mass/Vol] 10.1 g/dL Critically low 14.0-18.0 [facility] Comment on above: Performed By: #### C BC #### [facility] [address] [place] [address] Dr. Fred Bell IG # 0.17 10e3/ul Critically high 0.00-0.[address] [facility] Comment on above: Performed By: #### C BC #### [facility] [address] [place] [address] Dr. Fred Bell IG % 0.8 % Critically high 0.0-0.5 [facility] Comment on above: Performed By: #### C BC #### [facility] [address] [place] [address] Dr. Fred Bell LYMPH # 2.0 103/ul Normal 1.2-3.8 [facility] Comment on above: Performed By: #### C BC #### [facility] [address] [place] [address] Dr. Fred Bell Lymphocytes/100 WBC (Bld) 8.9 % Critically low 20.5-60.0 [facility] Comment on above: Performed By: #### C BC #### [facility] [address] [place] [address] Dr. Fred Bell MANUAL DIFF REQ NO Normal [facility] Comment on above: Performed By: #### C BC #### [facility] [address] [place] [address] Dr. Fred Bell MCH (RBC) [Entitic mass] 26.8 pg Normal 25.9-34.0 [facility] Comment on above: Performed By: #### C BC #### [facility] [address] [place] [address] Dr. Fred Bell MCHC (RBC) [Mass/Vol] 29.7 g/dL Critically low 29.9-35.2 [facility] Comment on above: Performed By: #### C BC #### [facility] [address] [place] [address] Dr. Fred Bell MCV (RBC) [Entitic vol] 90.2 fL Normal 80.0-94.0 [facility] Comment on above: Performed By: #### C BC #### [facility] [address] [address] [address] Fred Bell MONO # 1.5 103/ul Critically high 0.3-0.8 [facility] Comment on above: Performed By: #### C BC #### [facility] [address] [address] [address] Fred Bell Monocytes/100 WBC (Bld) 6.7 % Normal 1.7-12.0 [facility] Comment on above: Performed By: #### C BC #### [facility] [address] [place] [address] Dr. Fred Bell NEUT # 18.0 103/ul Critically high 1.4-6.5 [facility] Comment on above: Performed By: #### C BC #### [facility] [address] [place] [address] Dr. Fred Bell Neutrophils/100 WBC (Bld) 81.6 % Critically high 43.0-75.0 [facility] Comment on above: Performed By: #### C BC #### [facility] [address] [place] [address] Dr. Fred Bell Platelet mean volume (Bld) [Entitic vol] 8.7 fL Critically low 9.5-13.5 [facility] Comment on above: Performed By: #### C BC #### [facility] [address] [address] [address] Fred Bell PLT 552 103/ul Critically high 150-450 [facility] Comment on above: Performed By: #### C BC #### [facility] [address] [place] [address] Dr. Fred Bell RBC 3.77 106/ul Critically low 4.70-6.10 [facility] Comment on above: Performed By: #### C BC #### [facility] [address] [place] [address] Dr. Fred Bell WBC 22.1 103/ul Critically high 4.0-11.0 [facility] Comment on above: Performed By: #### C BC #### [facility] [address] [place] [address] Dr. Fred Bell LOWER RESPIRATORY CULTUREon 03-19-2022 Lower Respiratory Culture Final report Normal [facility] Comment on above: Performed By: #### A 1C #### [facility] [address] [place] [address] Dr. Fred Bell Result [address] [facility] Comment on above: Result Comment: Rout ine respiratory kathya Performed By: #### A 1C #### [facility] [address] [place] [address] Dr. Fred Bell POINT OF CARE GLUCOSEon 02-25 Glucose [Mass/Vol] 114 mg/dL Critically high 74-106 T [facility] Comment on above: Performed By: #### C BC #### [facility] [address] [place] [address] Dr. Fred Bell PROF CHEM 8 (BAS METB)on Anion gap [Moles/Vol] 14.5 mmol/L Normal [facility] Comment on above: Performed By: #### B MP #### [facility] [address] [place] [address] Dr. Fred Bell Calcium [Mass/Vol] 8.8 mg/dL Normal 8.5-10.1 [facility] Comment on above: Performed By: #### B MP #### [facility] [address] [place] [address] Dr. Fred Bell Chloride [Moles/Vol] 108 mmol/L Critically high 98-107 [facility] Comment on above: Performed By: #### B MP #### [facility] [address] [place] [address] Dr. Fred Bell CO2 [Moles/Vol] 24.4 mmol/L Normal 21.0-32.0 [facility] Comment on above: Performed By: #### B MP #### [facility] [address] [place] [address] Dr. Fred Bell Creatinine [Mass/Vol] 1.38 mg/dL Critically high 0.70-1.30 [facility] Comment on above: Performed By: #### B MP #### [facility] [address] [address] [address] Fred Bell EGFR-AF CAMEROONIAN >60 Normal >=60 [facility] Comment on above: Performed By: #### B MP #### [facility] [address] [address] [address] Fred Bell EGFR-NON AF CAMEROONIAN 53 mL/min/1.73m2 Critically low >=60 [facility] Comment on above: Performed By: #### B MP #### [facility] [address] [address] [address] Fred Bell Glucose [Mass/Vol] 82 mg/dL Normal 74-106 [facility] Comment on above: Performed By: #### B MP #### [facility] [address] [address] [address] Fred Bell Potassium [Moles/Vol] 3.9 mmol/L Normal 3.5-5.1 [facility] Comment on above: Performed By: #### B MP #### [facility] [address] [address] [address] Fred Bell Sodium [Moles/Vol] 143 mmol/L Normal 136-145 [facility] Comment on above: Performed By: #### B MP #### [facility] [address] [address] [address] Fred Bell Urea nitrogen [Mass/Vol] 11.0 mg/dL Normal 7.0-18.0 [facility] Comment on above: Performed By: #### B MP #### [facility] [address] [address] [address] Fred Bell Urea nitrogen/Creatinine [Mass ratio] 8.0 mg/mg Normal [facility] Comment on above: Performed By: #### B MP #### [facility] [address] [place] [address] Dr. Fred Bell VANCOMYCIN TROUGHon 03-19-20 22 VANCOMYCIN TROUGH 22.8 ug/ml Critically high 5.0-20.0 e [facility] Comment on above: Performed By: #### A 1C #### [facility] [address] [place] [address] Dr. Fred Vega. DIFF PCRon 03-18-2022 C. DIFFICILE PCR Negative Normal NEGATIVE [facility] Comment on above: Performed By: #### C DIFPOC #### [facility] [address] [place] [address] Dr. Fred Bell CBC W MANUAL DIFFon 03-18-20 ATYPICAL LYMPH # Normal [facility] Comment on above: Performed By: #### C BC #### [facility] [address] [place] [address] Dr. Fred Bell ATYPICAL LYMPH % Normal [facility] Comment on above: Performed By: #### C BC #### [facility] [address] [place] [address] Dr. Fred Bell BAND # Normal 0.0-0.3 [facility] Comment on above: Performed By: #### C BC #### [facility] [address] [place] [address] Dr. Fred Bell BAND % Normal 0-5 [facility] Comment on above: Performed By: #### C BC #### [facility] [address] [place] [address] Dr. Fred Bell BASOM # 0.00 103/ul Normal 0.00-0.10 [facility] Comment on above: Performed By: #### C BC #### [facility] [address] [place] [address] Dr. Fred Bell BASOM % 0.0 % Critically low 0.2-2.0 [facility] Comment on above: Performed By: #### C BC #### [facility] [address] [place] [address] Dr. Fred Bell BLAST # Normal [facility] Comment on above: Performed By: #### C BC #### [facility] [address] [place] [address] Dr. Fred Bell BLAST % Normal [facility] Comment on above: Performed By: #### C BC #### [facility] [address] [address] [address] Fred Bell CORRECTED WBC Normal 4.0-11.0 [facility] Comment on above: Performed By: #### C BC #### [facility] [address] [place] [address] Dr. Fred Bell EOS # 0.00 103/ul Normal 0.00-0.70 [facility] Comment on above: Performed By: #### C BC #### [facility] [address] [place] [address] Dr. Fred Bell EOS% 0.0 % Critically low 0.9-7.0 [facility] Comment on above: Performed By: #### C BC #### [facility] [address] [place] [address] Dr. Fred Bell HCT 28.1 % Critically low 42.0-54.0 [facility] Comment on above: Performed By: #### C BC #### [facility] [address] [place] [address] Dr. Fred Bell HGB 8.4 g/dl Critically low 14.0-18.0 [facility] Comment on above: Performed By: #### C BC #### [facility] [address] [place] [address] Dr. Fred Bell HYPERSEG NEUT 2+ Normal [facility] Comment on above: Performed By: #### C BC #### [facility] [address] [place] [address] Dr. Fred Bell HYPOCHROMASIA 2+ Normal [facility] Comment on above: Performed By: #### C BC #### [facility] [address] [place] [address] Dr. Fred Bell LYMPHM # 0.77 103/ul Critically low 1.20-3.80 [facility] Comment on above: Performed By: #### C BC #### [facility] [address] [place] [address] Dr. Fred Bell LYMPHM% 3.0 % Critically low 20.5-60.[address] [facility] Comment on above: Performed By: #### C BC #### [facility] [address] [place] [address] Dr. Fred Bell MCH 26.8 pg Normal 25.9-34.0 [facility] Comment on above: Performed By: #### C BC #### [facility] [address] [place] [address] Dr. Fred Bell MCHC 29.9 g/dl Normal 29.9-35.2 [facility] Comment on above: Performed By: #### C BC #### [facility] [address] [place] [address] Dr. Fred Bell MCV 89.5 fL Normal 80.0-94.0 [facility] Comment on above: Performed By: #### C BC #### [facility] [address] [place] [address] Dr. Fred Bell METAMYELOCYTE # Normal [facility] Comment on above: Performed By: #### C BC #### [facility] [address] [place] [address] Dr. Fred Bell METAMYELOCYTE % Normal [facility] Comment on above: Performed By: #### C BC #### [facility] [address] [place] [address] Dr. Fred Bell MONOM# 1.02 103/ul Critically high 0.30-0.80 [facility] Comment on above: Performed By: #### C BC #### [facility] [address] [place] [address] Dr. Fred Bell MONOM% 4.0 % Normal 1.7-12.0 [facility] Comment on above: Performed By: #### C BC #### [facility] [address] [place] [address] Dr. Fred Bell MPV 8.6 fL Critically low 9.5-13.5 [facility] Comment on above: Performed By: #### C BC #### [facility] [address] [place] [address] Dr. Fred Bell MYELOCYTE # Normal [facility] Comment on above: Performed By: #### C BC #### [facility] [address] [address] [address] Fred Bell MYELOCYTE % Normal [facility] Comment on above: Performed By: #### C BC #### [facility] [address] [address] [address] Fred Bell NRBC Normal [facility] Comment on above: Performed By: #### C BC #### [facility] [address] [address] [address] Fred Bell PLT 530 103/ul Critically high 150-450 [facility] Comment on above: Performed By: #### C BC #### [facility] [address] [address] [address] Fred Bell RBC 3.14 106/ul Critically low 4.70-6.10 [facility] Comment on above: Performed By: #### C BC #### [facility] [address] [address] [address] Fred Bell RDW 16.5 % Critically high 11.0-15.0 [facility] Comment on above: Performed By: #### C BC #### [facility] [address] [address] [address] Fred Bell SEG # 23.71 103/ul Critically high 1.40-6.[address] [facility] Comment on above: Performed By: #### C BC #### [facility] [address] [address] [address] Fred Bell SEG % 93.0 % Critically high 43.0-75.0 [facility] Comment on above: Performed By: #### C BC #### [facility] [address] [address] [address] Fred Bell WBC 25.5 103/ul Critically high 4.0-11.0 [facility] Comment on above: Performed By: #### C BC #### [facility] [address] [address] [address] CHEST WO CONon 03-18-2022 CT CHEST WO CON EXAMINATION: CT CHEST WO CON HISTORY: Cavitary pneumonia ; follow-up pneumonia COMPARISON: CT chest 03/15/2022 TECHNIQUE: Axial, Coronal, and Sagittal images were created without the administration of IV contrast material. Dose reduction techniques were achieved by using automated exposure control and/or adjustment of mA and/or kV according to patient size and/or use of iterative reconstruction technique. FINDINGS: LUNGS: Stable appearance of several thick-walled cavitary lesions within left upper and lower lobes with prominent surrounding infiltrates. Largest cavity is approximately 7.5 cm. PLEURA: No mass, effusion, or pneumothorax. VASCULATURE: No abnormality. REGAN: Lymphadenopathy. MEDIASTINUM: Lymphadenopathy. CARDIAC: No enlargement or pericardial thickening. AORTA: No aneurysm or dissection. CHEST WALL: No mass or axillary adenopathy. BONES: No bone lesion or fracture. LIMITED ABDOMEN: No suspicious findings. Limited images of the upper abdomen. OTHER: Negative. IMPRESSION: 1. No appreciable change in the left lung cavitary lesions and prominent surrounding infiltrates. 2. No appreciable change in the mediastinal and hilar mild-moderate lymphadenopathy. 3. No new findings. Electronically authenticated by: DEEDEE LIZARRAGA Date: 2022-03-18 13:[address] [facility] POINT OF CARE GLUCOSEon - Glucose [Mass/Vol] 96 mg/dL Normal 74-106 [facility] Comment on above: Performed By: #### A 1C #### [facility] [address] [place] [address] Dr. Fred Bell Glucose [Mass/Vol] 82 mg/dL Normal 74-106 [facility] Comment on above: Performed By: #### B MP #### [facility] [address] [place] [address] Dr. Fred Bell Glucose [Mass/Vol] 119 mg/dL Critically high 74-106 [facility] Comment on above: Performed By: #### P OCGLUC #### [facility] [address] [place] [address] Dr. Fred Bell Glucose [Mass/Vol] 110 mg/dL Critically high 74-106 [facility] Comment on above: Performed By: #### P OCGLUC #### [facility] [address] [place] [address] Dr. Fred Bell PROF CHEM 8 (BAS METB)on Anion gap [Moles/Vol] 13.8 mmol/L Normal [facility] Comment on above: Performed By: #### V ANCT #### [facility] [address] [place] [address] Dr. Fred Bell Calcium [Mass/Vol] 8.3 mg/dL Critically low 8.5-10.1 [facility] Comment on above: Performed By: #### V ANCT #### [facility] [address] [address] [address] Fred Bell Chloride [Moles/Vol] 110 mmol/L Critically high 98-107 [facility] Comment on above: Performed By: #### V ANCT #### [facility] [address] [place] [address] Dr. Fred Bell CO2 [Moles/Vol] 22.0 mmol/L Normal 21.0-32.0 [facility] Comment on above: Performed By: #### V ANCT #### [facility] [address] [place] [address] Dr. Fred Bell Creatinine [Mass/Vol] 1.36 mg/dL Critically high 0.70-1.30 [facility] Comment on above: Performed By: #### V ANCT #### [facility] [address] [place] [address] Dr. Fred Bell EGFR-AF CAMEROONIAN >60 Normal >=60 [facility] Comment on above: Performed By: #### V ANCT #### [facility] [address] [address] [address] Fred Bell EGFR-NON AF CAMEROONIAN 54 mL/min/1.73m2 Critically low >=60 [facility] Comment on above: Performed By: #### V ANCT #### [facility] [address] [address] [address] Fred Bell Glucose [Mass/Vol] 173 mg/dL Critically high 74-106 [facility] Comment on above: Performed By: #### V ANCT #### [facility] [address] [address] [address] Fred Bell Potassium [Moles/Vol] 3.8 mmol/L Normal 3.5-5.1 [facility] Comment on above: Performed By: #### V ANCT #### [facility] [address] [place] [address] Dr. Fred Bell Sodium [Moles/Vol] 142 mmol/L Normal 136-145 [facility] Comment on above: Performed By: #### V ANCT #### [facility] [address] [place] [address] Dr. Fred Bell Urea nitrogen [Mass/Vol] 13.0 mg/dL Normal 7.0-18.0 [facility] Comment on above: Performed By: #### V ANCT #### [facility] [address] [place] [address] Dr. Fred Bell Urea nitrogen/Creatinine [Mass ratio] 9.6 mg/mg Normal [facility] Comment on above: Performed By: #### V ANCT #### [facility] [address] [place] [address] Dr. Fred Bell SPUTUM CULTUREon 03-18-2022 Epithelial cells LM Ql (Urine sed) None seen Normal [facility] Comment on above: Performed By: #### P OCGLUC #### [facility] [address] [place] [address] Dr. Fred Bell Gram Stain Evaluation Comment Normal [facility] Comment on above: Result Comment: This specimen is of good quality and is acceptable for routine bacterial culture. Performed By: #### P OCGLUC #### [facility] [address] [place] [address] Dr. Fred Bell Lower Respiratory Culture Final report Normal [facility] Comment on above: Performed By: #### P OCGLUC #### [facility] [address] [place] [address] Dr. Fred Bell Result 1 TNP Normal [facility] Comment on above: Result Comment: Test not performed Performed By: #### P OCGLUC #### [facility] [address] [place] [address] Dr. Fred Bell Result [address] [facility] Comment on above: Result Comment: Rout ine respiratory kathya Performed By: #### P OCGLUC #### [facility] [address] [place] [address] Dr. Fred Bell Result [address] [facility] Comment on above: Performed By: #### P OCGLUC #### [facility] [address] [place] [address] Dr. Fred Bell Result [address] [facility] Comment on above: Performed By: #### P OCGLUC #### [facility] [address] [place] [address] Dr. Fred Bell Result [address] [facility] Comment on above: Performed By: #### P OCGLUC #### [facility] [address] [place] [address] Dr. Fred Bell White Blood Cells None seen Normal [facility] Comment on above: Performed By: #### P OCGLUC #### [facility] [address] [place] [address] Dr. Fred Bell XR CHEST 1 Von 03-18-2022 XR CHEST 1 V EXAM: Portable chest REASON FOR EXAM: Follow-up cavitary pneumonia. TECHNIQUE: A portable frontal view of the chest was obtained. COMPARISON: 03/17/2022. FINDINGS: The lungs are well-inflated. The left lung is unchanged in appearance. The heart and mediastinum are stable in appearance. There is no mass or pathologic adenopathy. Osseous structures are normal. IMPRESSION: Stable exam. Electronically authenticated by: BRANDON PRADO Date: 2022-03-18 08:28 Normal [facility] CBC AUTO DIFFon 03-17-2022 BASO # 0.0 103/ul Normal 0.0-0.1 [facility] Comment on above: Performed By: #### A 1C #### [facility] [address] [place] [address] Dr. Fred Bell Basophils/100 WBC (Bld) 0.1 % Critically low 0.2-2.0 [facility] Comment on above: Performed By: #### A 1C #### [facility] [address] [place] [address] Dr. Fred Bell EO # 0.0 103/ul Normal 0.0-0.7 [facility] Comment on above: Performed By: #### A 1C #### [facility] [address] [place] [address] Dr. Fred Bell Eosinophils/100 WBC (Bld) 0.0 % Critically low 0.9-7.0 [facility] Comment on above: Performed By: #### A 1C #### [facility] [address] [place] [address] Dr. Fred Bell Erythrocyte distribution width (RBC) [Ratio] 16.3 % Critically high 11.0-15.0 [facility] Comment on above: Performed By: #### A 1C #### [facility] [address] [place] [address] Dr. Fred Bell Hematocrit (Bld) [Volume fraction] 29.8 % Critically low 42.0-54.0 [facility] Comment on above: Performed By: #### A 1C #### [facility] [address] [place] [address] Dr. Fred Bell Hemoglobin (Bld) [Mass/Vol] 9.1 g/dL Critically low 14.0-18.0 [facility] Comment on above: Performed By: #### A 1C #### [facility] [address] [place] [address] Dr. Fred Bell IG # 0.16 10e3/ul Critically high 0.00-0.[address] [facility] Comment on above: Performed By: #### A 1C #### [facility] [address] [place] [address] Dr. Fred Bell IG % 0.8 % Critically high 0.0-0.5 [facility] Comment on above: Performed By: #### A 1C #### [facility] [address] [place] [address] Dr. Fred Bell LYMPH # 0.8 103/ul Critically low 1.2-3.8 [facility] Comment on above: Performed By: #### A 1C #### [facility] [address] [place] [address] Dr. Fred Bell Lymphocytes/100 WBC (Bld) 4.1 % Critically low 20.5-60.0 [facility] Comment on above: Performed By: #### A 1C #### [facility] [address] [place] [address] Dr. Fred Bell MANUAL DIFF REQ NO Normal [facility] Comment on above: Performed By: #### A 1C #### [facility] [address] [place] [address] Dr. Fred Bell MCH (RBC) [Entitic mass] 27.3 pg Normal 25.9-34.0 [facility] Comment on above: Performed By: #### A 1C #### [facility] [address] [place] [address] Dr. Fred Bell MCHC (RBC) [Mass/Vol] 30.5 g/dL Normal 29.9-35.2 [facility] Comment on above: Performed By: #### A 1C #### [facility] [address] [place] [address] Dr. Fred Bell MCV (RBC) [Entitic vol] 89.5 fL Normal 80.0-94.0 [facility] Comment on above: Performed By: #### A 1C #### [facility] [address] [place] [address] Dr. Fred Bell MONO # 0.3 103/ul Normal 0.3-0.8 [facility] Comment on above: Performed By: #### A 1C #### [facility] [address] [place] [address] Dr. Fred Bell Monocytes/100 WBC (Bld) 1.5 % Critically low 1.7-12.0 [facility] Comment on above: Performed By: #### A 1C #### [facility] [address] [place] [address] Dr. Fred Bell NEUT # 18.5 103/ul Critically high 1.4-6.5 [facility] Comment on above: Performed By: #### A 1C #### [facility] [address] [place] [address] Dr. Fred Bell Neutrophils/100 WBC (Bld) 93.5 % Critically high 43.0-75.0 [facility] Comment on above: Performed By: #### A 1C #### [facility] [address] [place] [address] Dr. Fred Bell Platelet mean volume (Bld) [Entitic vol] 8.6 fL Critically low 9.5-13.5 [facility] Comment on above: Performed By: #### A 1C #### [facility] [address] [address] [address] Fred Bell PLT 445 103/ul Normal 150-450 [facility] Comment on above: Performed By: #### A 1C #### [facility] [address] [address] [address] Fred Bell RBC 3.33 106/ul Critically low 4.70-6.10 [facility] Comment on above: Performed By: #### A 1C #### [facility] [address] [place] [address] Dr. Fred Bell WBC 19.8 103/ul Critically high 4.0-11.0 [facility] Comment on above: Performed By: #### A 1C #### [facility] [address] [place] [address] Dr. Fred Bell POINT OF CARE GLUCOSEon 02-25 Glucose [Mass/Vol] 153 mg/dL Critically high 74-106 [facility] Comment on above: Performed By: #### P OCGLUC #### [facility] [address] [place] [address] Dr. Fred Bell Glucose [Mass/Vol] 169 mg/dL Critically high 74-106 [facility] Comment on above: Performed By: #### P OCGLUC #### [facility] [address] [place] [address] Dr. Fred Bell Glucose [Mass/Vol] 252 mg/dL Critically high 74-106 [facility] Comment on above: Performed By: #### C DIFPOC #### [facility] [address] [place] [address] Dr. Fred Bell PROF CHEM 8 (BAS METB)on Anion gap [Moles/Vol] 15.1 mmol/L Normal [facility] Comment on above: Performed By: #### C DIFPOC #### [facility] [address] [place] [address] Dr. Fred Bell Calcium [Mass/Vol] 8.8 mg/dL Normal 8.5-10.1 [facility] Comment on above: Performed By: #### C DIFPOC #### [facility] [address] [place] [address] Dr. Fred Bell Chloride [Moles/Vol] 107 mmol/L Normal 98-107 [facility] Comment on above: Performed By: #### C DIFPOC #### [facility] [address] [place] [address] Dr. Fred Bell CO2 [Moles/Vol] 22.1 mmol/L Normal 21.0-32.0 [facility] Comment on above: Performed By: #### C DIFPOC #### [facility] [address] [place] [address] Dr. Fred Bell Creatinine [Mass/Vol] 1.20 mg/dL Normal 0.70-1.30 [facility] Comment on above: Performed By: #### C DIFPOC #### [facility] [address] [place] [address] Dr. Fred Bell EGFR-AF CAMEROONIAN >60 Normal >=60 [facility] Comment on above: Performed By: #### C DIFPOC #### [facility] [address] [place] [address] Dr. Fred Bell EGFR-NON AF CAMEROONIAN >60 Normal >=60 [facility] Comment on above: Performed By: #### C DIFPOC #### [facility] [address] [place] [address] Dr. Fred Bell Glucose [Mass/Vol] 181 mg/dL Critically high 74-106 [facility] Comment on above: Performed By: #### C DIFPOC #### [facility] [address] [place] [address] Dr. Fred Bell Potassium [Moles/Vol] 4.2 mmol/L Normal 3.5-5.1 [facility] Comment on above: Performed By: #### C DIFPOC #### [facility] [address] [address] [address] Fred Bell Sodium [Moles/Vol] 140 mmol/L Normal 136-145 [facility] Comment on above: Performed By: #### C DIFPOC #### [facility] [address] [address] [address] Fred Bell Urea nitrogen [Mass/Vol] 12.0 mg/dL Normal 7.0-18.0 [facility] Comment on above: Performed By: #### C DIFPOC #### [facility] [address] [place] [address] Dr. Fred Bell Urea nitrogen/Creatinine [Mass ratio] 10.0 mg/mg Normal [facility] Comment on above: Performed By: #### C DIFPOC #### [facility] [address] [place] [address] Dr. Fred Bell VANCOMYCIN TROUGHon 03-17-20 VANCOMYCIN TROUGH 16.1 ug/ml Normal 5.0-20.[address] [facility] Comment on above: Performed By: #### V ANCT #### [facility] [address] [place] [address] Dr. Fred Bell XR CHEST 2 Von 03-17-2022 XR CHEST 2 V EXAM: XR CHEST 2 V 03/16/2022 11:20 PM EDT OH001 CLINICAL STATEMENT: SHORTNESS OF BREATH COMPARISON: 03/16/2022 TECHNIQUE: Single AP radiograph of the chest is submitted. FINDINGS: There is stable left upper lobe opacity, cavitary areas and airspace disease. The cardiac silhouette is normal. The costophrenic recesses are sharp. No pneumothorax. The bony elements are unremarkable. IMPRESSION: Stable left upper lobe opacity, cavitary areas and airspace disease FOLLOW-UP: Follow-up as clinically indicated. Electronically authenticated by: AARTI LAYTON Date: 2022-03-17 06:[address] [facility] CBC W MANUAL DIFFon 03-16-20 ATYPICAL LYMPH # Normal [facility] Comment on above: Performed By: #### B MP #### [facility] [address] [place] [address] Dr. Fred Bell ATYPICAL LYMPH % Normal [facility] Comment on above: Performed By: #### B MP #### [facility] [address] [place] [address] Dr. Fred Bell BAND # Normal 0.0-0.3 [facility] Comment on above: Performed By: #### B MP #### [facility] [address] [place] [address] Dr. Fred Bell BAND % Normal 0-5 [facility] Comment on above: Performed By: #### B MP #### [facility] [address] [place] [address] Dr. Fred Bell BASOM # 0.00 103/ul Normal 0.00-0.10 [facility] Comment on above: Performed By: #### B MP #### [facility] [address] [place] [address] Dr. Fred Bell BASOM % 0.0 % Critically low 0.2-2.0 [facility] Comment on above: Performed By: #### B MP #### [facility] [address] [place] [address] Dr. Fred Bell BLAST # Normal [facility] Comment on above: Performed By: #### B MP #### [facility] [address] [place] [address] Dr. Fred Bell BLAST % Normal [facility] Comment on above: Performed By: #### B MP #### [facility] [address] [place] [address] Dr. Fred Bell CORRECTED WBC Normal 4.0-11.0 [facility] Comment on above: Performed By: #### B MP #### [facility] [address] [place] [address] Dr. Fred Bell EOS # 0.21 103/ul Normal 0.00-0.70 [facility] Comment on above: Performed By: #### B MP #### [facility] [address] [place] [address] Dr. Fred Bell EOS% 1.0 % Normal 0.9-7.0 [facility] Comment on above: Performed By: #### B MP #### [facility] [address] [place] [address] Dr. Fred Bell HCT 29.4 % Critically low 42.0-54.0 [facility] Comment on above: Performed By: #### B MP #### [facility] [address] [address] [address] Fred Bell HGB 8.9 g/dl Critically low 14.0-18.0 [facility] Comment on above: Performed By: #### B MP #### [facility] [address] [place] [address] Dr. Fred Bell HYPERSEG NEUT 2+ Normal [facility] Comment on above: Performed By: #### B MP #### [facility] [address] [place] [address] Dr. Fred Bell LYMPHM # 1.71 103/ul Normal 1.20-3.80 [facility] Comment on above: Performed By: #### B MP #### [facility] [address] [place] [address] Dr. Fred Bell LYMPHM% 8.0 % Critically low 20.5-60.0 [facility] Comment on above: Performed By: #### B MP #### [facility] [address] [place] [address] Dr. Fred Bell MCH 27.1 pg Normal 25.9-34.0 [facility] Comment on above: Performed By: #### B MP #### [facility] [address] [place] [address] Dr. Fred Bell MCHC 30.3 g/dl Normal 29.9-35.2 [facility] Comment on above: Performed By: #### B MP #### [facility] [address] [place] [address] Dr. Fred Bell MCV 89.6 fL Normal 80.0-94.0 [facility] Comment on above: Performed By: #### B MP #### [facility] [address] [address] [address] Fred Bell METAMYELOCYTE # Normal [facility] Comment on above: Performed By: #### B MP #### [facility] [address] [place] [address] Dr. Fred Bell METAMYELOCYTE % Normal [facility] Comment on above: Performed By: #### B MP #### [facility] [address] [place] [address] Dr. Fred Bell MONOM# 2.35 103/ul Critically high 0.30-0.80 [facility] Comment on above: Performed By: #### B MP #### [facility] [address] [place] [address] Dr. Fred Bell MONOM% 11.0 % Normal 1.7-12.0 [facility] Comment on above: Performed By: #### B MP #### [facility] [address] [place] [address] Dr. Fred Bell MPV 8.8 fL Critically low 9.5-13.5 [facility] Comment on above: Performed By: #### B MP #### [facility] [address] [place] [address] Dr. Fred Bell MYELOCYTE # Normal [facility] Comment on above: Performed By: #### B MP #### [facility] [address] [place] [address] Dr. Fred Bell MYELOCYTE % Normal [facility] Comment on above: Performed By: #### B MP #### [facility] [address] [place] [address] Dr. Fred Bell NRBC Normal [facility] Comment on above: Performed By: #### B MP #### [facility] [address] [place] [address] Dr. Fred Bell PLT 491 103/ul Critically high 150-450 [facility] Comment on above: Performed By: #### B MP #### [facility] [address] [place] [address] Dr. Fred Bell RBC 3.28 106/ul Critically low 4.70-6.10 [facility] Comment on above: Result Comment: ROUL EUX 3+ Performed By: #### B MP #### [facility] [address] [place] [address] Dr. Fred Bell RDW 16.6 % Critically high 11.0-15.0 [facility] Comment on above: Performed By: #### B MP #### [facility] [address] [address] [address] Fred Bell SEG # 17.12 103/ul Critically high 1.40-6.[address] [facility] Comment on above: Performed By: #### B MP #### [facility] [address] [place] [address] Dr. Fred Bell SEG % 80.0 % Critically high 43.0-75.0 [facility] Comment on above: Performed By: #### B MP #### [facility] [address] [place] [address] Dr. Fred Bell WBC 21.4 103/ul Critically high 4.0-11.0 [facility] Comment on above: Performed By: #### B MP #### [facility] [address] [place] [address] Dr. Fred Bell CYTOLOGYon 03-16-2022 SENT TO REF LAB 03/17/22 Normal [facility] Comment on above: Performed By: #### C BC #### [facility] [address] [place] [address] Dr. Fred Bell GRAM STAINon 03-16-2022 COMMENTS NO ORGANISMS OBSERVED Normal [facility] Comment on above: Performed By: #### B MP #### [facility] [address] [place] [address] Dr. Fred Bell DIPHTHEROIDS Normal [facility] Comment on above: Performed By: #### B MP #### [facility] [address] [place] [address] Dr. Fred Bell EPITHELIALS Normal [facility] Comment on above: Performed By: #### B MP #### [facility] [address] [place], [place] [id number] Dr. Fred Bell FUNGAL ELEMENTS Normal [facility] Comment on above: Performed By: #### B MP #### [facility] [address] [address] [address] Fred Bell GRAM NEG BACILLI Normal [facility] Comment on above: Performed By: #### B MP #### [facility] [address] [address] [address] Fred Bell GRAM NEG DIPPLOCOCCI Normal [facility] Comment on above: Performed By: #### B MP #### [facility] [address] [address] [address] Fred Bell GRAM POS BACILLI Normal [facility] Comment on above: Performed By: #### B MP #### [facility] [address] [address] [address] Fred Bell GRAM POSITIVE COCCI Normal [facility] Comment on above: Performed By: #### B MP #### [facility] [address] [address] [address] Fred Bell GRAM STAIN SOURCE Left upper lobe lavage [facility] Comment on above: Performed By: #### B MP #### [facility] [address] [address] [address] Fred Bell GS_DIPTH [facility] Comment on above: Performed By: #### B MP #### [facility] [address] [address] [address] Fred Bell WBC MODERATE Normal [facility] Comment on above: Performed By: #### B MP #### [facility] [address] [address] [address] Fred Bell POINT OF CARE GLUCOSEon 06-2 Glucose [Mass/Vol] 218 mg/dL Critically high [address] [place] [address] Comment on above: Performed By: #### A 1C #### [facility] [address] [address] [address] Fred Bell Glucose [Mass/Vol] 251 mg/dL Critically high -106 [facility] Comment on above: Performed By: #### P OCGLUC #### [facility] [address] [address] [address] Fred Bell PROF CHEM 8 (BAS METB)on Anion gap [Moles/Vol] 13.9 mmol/L Normal [facility] Comment on above: Performed By: #### B MP #### [facility] [address] [address] [address] Fred Bell Calcium [Mass/Vol] 8.7 mg/dL Normal 8.5-10.1 [facility] Comment on above: Performed By: #### B MP #### [facility] [address] [address] [address] Fred Bell Chloride [Moles/Vol] 106 mmol/L Normal 98-107 [facility] Comment on above: Performed By: #### B MP #### [facility] [address] [address] [address] Fred Bell CO2 [Moles/Vol] 25.4 mmol/L Normal 21.0-32.0 [facility] Comment on above: Performed By: #### B MP #### [facility] [address] [address] [address] Fred Bell Creatinine [Mass/Vol] 1.42 mg/dL Critically high 0.70-1.30 [facility] Comment on above: Performed By: #### B MP #### [facility] [address] [address] [address] Fred Bell EGFR-AF CAMEROONIAN >60 Normal >=60 [facility] Comment on above: Performed By: #### B MP #### [facility] [address] [address] [address] Fred Bell EGFR-NON AF CAMEROONIAN 52 mL/min/1.73m2 Critically low >=60 [facility] Comment on above: Performed By: #### B MP #### [facility] [address] [address] [address] Fred Bell Glucose [Mass/Vol] 121 mg/dL Critically high 74-106 [facility] Comment on above: Performed By: #### B MP #### [facility] [address] [address] [address] Fred Bell Potassium [Moles/Vol] 4.3 mmol/L Normal 3.5-5.1 [facility] Comment on above: Performed By: #### B MP #### [facility] [address] [address] [address] Fred Bell Sodium [Moles/Vol] 141 mmol/L Normal 136-145 [facility] Comment on above: Performed By: #### B MP #### [facility] [address] [address] [address] Fred Bell Urea nitrogen [Mass/Vol] 12.0 mg/dL Normal 7.0-18.0 [facility] Comment on above: Performed By: #### B MP #### [facility] [address] [address] [address] Fred Bell Urea nitrogen/Creatinine [Mass ratio] 8.5 mg/mg Normal [facility] Comment on above: Performed By: #### B MP #### [facility] [address] [address] [address] Fred Bell XR CHEST 2 Von 03-16-2022 XR CHEST 2 V EXAM: XR CHEST 2 V 03/15/2022 11:20 PM EDT OH001 CLINICAL STATEMENT: SHORTNESS OF BREATH COMPARISON: 03/15/2022 TECHNIQUE: PA and lateral radiograph of the chest are submitted. FINDINGS: There is bilateral parenchymal opacity with cavitary areas. May correlate with CT scan of the chest. The cardiac silhouette is normal. Poststernotomy. The costophrenic recesses are sharp. No pneumothorax. The bony elements are unremarkable. IMPRESSION: Bilateral parenchymal opacity with cavitary areas. May correlate with CT scan of the chest. FOLLOW-UP: Follow-up as clinically indicated. Electronically authenticated by: AARTI LAYTON Date: 2022-03-16 06:[address] [facility] BNPon 03-15-2022 Natriuretic peptide B (Bld) [Mass/Vol] 3075.0 pg/mL Critically high <=900.0 [facility] Comment on above: Performed By: #### A 1C #### [facility] [address] [place] [address] Dr. Fred Bell CARDIAC MOUNIKA ADMITon 022 CK [Catalytic activity/Vol] 30 U/L Critically low 39-308 [facility] Comment on above: Performed By: #### V ANCT #### [facility] [address] [place] [address] Dr. Fred Bell CK.MB [Mass/Vol] 0.32 ng/mL Normal <=3.60 [facility] Comment on above: Performed By: #### V ANCT #### [facility] [address] [place] [address] Dr. Fred Bell HSTROP 4.8 pg/mL Normal 4.0-76.1 [facility] Comment on above: Result Comment: CUT- OFF POINTS HAVE BEEN ESTABLISHED BASED ON THE FOURTH UNIVERSAL DEFINITIONS OF MYOCARDIAL INFARCTION. THE UPPER REFERENCE LIMIT (URL) OF TROPONIN, DEFINED THE 99TH PERCENTILE OF cTnI DISTRIBUTION IN A REFERENCE POPULATION, HAS BEEN CONFIRMED THE DECISION THRESHOLD FOR [place] DIAGNOSIS. Performed By: #### V ANCT #### [facility] [address] [place] [address] Dr. Fred Bell DEEPALI 40 ng/mL Normal 16-96 [facility] Comment on above: Performed By: #### V ANCT #### [facility] [address] [place] [address] Dr. Fred Bell CBC AUTO DIFFon 03-15-2022 BASO # 0.1 103/ul Normal 0.0-0.1 [facility] Comment on above: Performed By: #### C BC #### [facility] [address] [place] [address] Dr. Fred Bell Basophils/100 WBC (Bld) 0.3 % Normal 0.2-2.0 [facility] Comment on above: Performed By: #### C BC #### [facility] [address] [place] [address] Dr. Fred Bell EO # 0.1 103/ul Normal 0.0-0.7 [facility] Comment on above: Performed By: #### C BC #### [facility] [address] [address] [address] Fred Bell Eosinophils/100 WBC (Bld) 0.6 % Critically low 0.9-7.0 [facility] Comment on above: Performed By: #### C BC #### [facility] [address] [place] [address] Dr. Fred Bell Erythrocyte distribution width (RBC) [Ratio] 16.7 % Critically high 11.0-15.0 [facility] Comment on above: Performed By: #### C BC #### [facility] [address] [place] [address] Dr. Fred Bell Hematocrit (Bld) [Volume fraction] 35.0 % Critically low 42.0-54.0 [facility] Comment on above: Performed By: #### C BC #### [facility] [address] [place] [address] Dr. Fred Bell Hemoglobin (Bld) [Mass/Vol] 10.8 g/dL Critically low 14.0-18.0 [facility] Comment on above: Performed By: #### C BC #### [facility] [address] [place] [address] Dr. Fred Bell IG # 0.15 10e3/ul Critically high 0.00-0.[address] [facility] Comment on above: Performed By: #### C BC #### [facility] [address] [place] [address] Dr. Fred Bell IG % 0.7 % Critically high 0.0-0.5 [facility] Comment on above: Performed By: #### C BC #### [facility] [address] [place] [address] Dr. Fred Bell LYMPH # 1.1 103/ul Critically low 1.2-3.8 [facility] Comment on above: Performed By: #### C BC #### [facility] [address] [place] [address] Dr. Fred Bell Lymphocytes/100 WBC (Bld) 5.4 % Critically low 20.5-60.0 [facility] Comment on above: Performed By: #### C BC #### [facility] [address] [address] [address] Fred Bell MANUAL DIFF REQ NO Normal [facility] Comment on above: Performed By: #### C BC #### [facility] [address] [address] [address] Fred Bell MCH (RBC) [Entitic mass] 27.1 pg Normal 25.9-34.0 [facility] Comment on above: Performed By: #### C BC #### [facility] [address] [address] [address] Fred Bell MCHC (RBC) [Mass/Vol] 30.9 g/dL Normal 29.9-35.2 [facility] Comment on above: Performed By: #### C BC #### [facility] [address] [place] [address] Dr. Fred Bell MCV (RBC) [Entitic vol] 87.9 fL Normal 80.0-94.0 [facility] Comment on above: Performed By: #### C BC #### [facility] [address] [place] [address] Dr. Fred Bell MONO # 1.4 103/ul Critically high 0.3-0.8 [facility] Comment on above: Performed By: #### C BC #### [facility] [address] [place] [address] Dr. Fred Bell Monocytes/100 WBC (Bld) 6.4 % Normal 1.7-12.0 [facility] Comment on above: Performed By: #### C BC #### [facility] [address] [place] [address] Dr. Fred Bell NEUT # 18.4 103/ul Critically high 1.4-6.5 [facility] Comment on above: Performed By: #### C BC #### [facility] [facility] [address] [place] [address] Dr. Fred Bell Neutrophils/100 WBC (Bld) 86.6 % Critically high 43.0-75.0 [facility] Comment on above: Performed By: #### C BC #### [facility] [address] [address] [address] Fred Bell Platelet mean volume (Bld) [Entitic vol] 8.5 fL Critically low 9.5-13.5 [facility] Comment on above: Performed By: #### C BC #### [facility] [address] [address] [address] Fred Bell PLT 525 103/ul Critically high 150-450 [facility] Comment on above: Performed By: #### C BC #### [facility] [address] [address] [address] Fred Bell RBC 3.98 106/ul Critically low 4.70-6.10 [facility] Comment on above: Performed By: #### C BC #### [facility] [address] [address] [address] Fred Bell WBC 21.2 103/ul Critically high 4.0-11.0 [facility] Comment on above: Performed By: #### C BC #### [facility] [address] [place] [address] Dr. Fred Bell CTA CHEST WO W CONon --2 022 CTA CHEST WO W CON EXAMINATION: CTA CHEST WO W CON HISTORY: SHORTNESS OF BREATH COMPARISON: No relevant comparison available. TECHNIQUE: Multi-planar CT images were created with IV contrast. Axial, Coronal, and Sagittal images. Dose reduction techniques were achieved by using automated exposure control and/or adjustment of mA and/or kV according to patient size and/or use of iterative reconstruction technique. 3-D reconstruction was performed on a separate workstation. FINDINGS: VASCULATURE: No pulmonary embolism or abnormal opacity. LUNGS: Several thick-walled cavitary lesions within the left upper and lower lobes with surrounding dense infiltrates versus atelectasis. Largest cavitary lesion is approximately 7.6 x 7.2 x 6.3 cm. Patent bronchi. PLEURA: No mass, effusion, or pneumothorax. REGAN: Bilateral mild lymphadenopathy. MEDIASTINUM: Mild lymphadenopathy. CARDIAC: No enlargement, pericardial effusion, or pericardial thickening. AORTA: No aneurysm or dissection. CHEST WALL: No mass or axillary adenopathy. BONES: No bone lesion or fracture. LIMITED ABDOMEN: No suspicious findings. Limited images of the upper abdomen. OTHER: Negative. IMPRESSION: 1. No pulmonary embolism. 2. Several adjacent cavitary masses versus single large mass with separate cavitary components within the left upper and lower lobes with prominent surrounding infiltrates; largest single cavitary component is 7.6 cm. Findings favor infectious etiology over neoplasm. Electronically authenticated by: DEEDEE LIZARRAGA Date: 2022-03-15 15:33 Normal [facility] CULTURE BLOODon 03-15-2022 Microscopic examination of blood, culture Culture Observations: NO GROWTH AT 5 DAYS. Normal [facility] Comment on above: Performed By: #### C DIFPOC #### [facility] [address] [place] [address] Dr. Fred Bell Covid-19 PCR ([facility])on 02-25 SARS-CoV-2 (COVID-19) RNA DALE+probe Ql (Unsp spec) Not detected Normal NOT DETECTED [facility] Comment on above: Result Comment: When diagnostic testing is negative, the possibility of a false negative should be considered in the context of a patient's recent exposures and the presence of clinical signs and symptoms consistent with SARS-CoV-2. This test is not yet approved or cleared by the [place] FDA. When there are no FDA-approved or cleared tests available, and other criteria are met, FDA can make tests available under an emergency access mechanism called an Emergency Use Authorization (EUA). The EUA for this test is supported by the [place] of Health and Human Service's declaration that circumstances exist to justify the emergency use of in vitro diagnostics for the detection and/or diagnosis of the virus that causes COVID-19. This EUA will remain in effect for the duration of the COVID-19 declaration justifying emergency of IVDs, unless it is terminated or revoked by the FDA (after which the test may no longer be used). Performed By: #### B MP #### [facility] [address] [place] [address] Dr. Fred Bell D-DIMERon 03-15-2022 D-DIMER 5.11 mg/L FEU Critically high <=0.59 [facility] Comment on above: Performed By: #### C DIFPOC #### [facility] [address] [place], [place] [address] Dr. Fred Bell D-DIMER COMMENTS SEE BELOW Normal [facility] Comment on above: Result Comment: Incr eases in D-Dimer concentration observed with thromboembolic events can be variable due to localization, size, and age of the thrombus. Therefore, a thromboembolic event cannot be diagnosed with certainty on the basis of the reference range. D-Dimers may also be elevated for a variety of disorders including: advanced age, , coronary disease, cancer, liver disease, infection, inflammation, hematoma, DIC, trauma, post-surgery, diabetes, thrombolytic or anticoagulant therapy, stress, and generalized hospitalization. Performed By: #### C DIFPOC #### [facility] [address] [place] [address] Dr. Fred Bell LACTATE/LACTIC ACIDon 2021 Lactate [Moles/Vol] 2.0 mmol/L Critically high 0.4-1.9 [facility] Comment on above: Performed By: #### B MP #### [facility] [address] [place] [address] Dr. Fred Bell Lactate [Moles/Vol] 1.5 mmol/L Normal 0.4-1.9 [facility] Comment on above: Performed By: #### C DIFPOC #### [facility] [address] [place] [address] Dr. Fred Bell POINT OF CARE GLUCOSEon 02-25 Glucose [Mass/Vol] 178 mg/dL Critically high 74-106 T [facility] Comment on above: Performed By: #### A 1C #### [facility] [address] [place] [address] Dr. Fred Bell PROF 14(COMP METB)on 022 Albumin [Mass/Vol] 2.3 g/dL Critically low 3.4-5.0 [facility] Comment on above: Performed By: #### A 1C #### [facility] [address] [place] [address] Dr. Fred Bell Albumin/Globulin [Mass ratio] 0.4 {ratio} Normal [facility] Comment on above: Performed By: #### A 1C #### [facility] [address] [place] [address] Dr. Fred Bell ALP [Catalytic activity/Vol] 486 U/L Critically high 46-116 [facility] Comment on above: Performed By: #### A 1C #### [facility] [address] [place] [address] Dr. Fred Bell ALT [Catalytic activity/Vol] 37 U/L Normal 16-63 [facility] Comment on above: Performed By: #### A 1C #### [facility] [address] [address] [address] Fred Bell Anion gap [Moles/Vol] 18.5 mmol/L Normal [facility] Comment on above: Performed By: #### A 1C #### [facility] [address] [place] [address] Dr. Fred Bell AST [Catalytic activity/Vol] 34 U/L Normal 15-37 [facility] Comment on above: Performed By: #### A 1C #### [facility] [address] [place] [address] Dr. Fred Bell Bilirubin [Mass/Vol] 0.5 mg/dL Normal 0.2-1.0 [facility] Comment on above: Performed By: #### A 1C #### [facility] [address] [place] [address] Dr. Fred Bell Calcium [Mass/Vol] 9.6 mg/dL Normal 8.5-10.1 [facility] Comment on above: Performed By: #### A 1C #### [facility] [address] [place] [address] Dr. Fred Bell Chloride [Moles/Vol] 102 mmol/L Normal 98-107 [facility] Comment on above: Performed By: #### A 1C #### [facility] [address] [place] [address] Dr. Fred Bell CO2 [Moles/Vol] 22.8 mmol/L Normal 21.0-32.0 [facility] Comment on above: Performed By: #### A 1C #### [facility] [address] [place] [address] Dr. Fred Bell Creatinine [Mass/Vol] 1.37 mg/dL Critically high 0.70-1.30 [facility] Comment on above: Performed By: #### A 1C #### [facility] [address] [address] [address] Fred Bell EGFR-AF CAMEROONIAN >60 Normal >=60 [facility] Comment on above: Performed By: #### A 1C #### [facility] [address] [address] [address] Fred Bell EGFR-NON AF CAMEROONIAN 54 mL/min/1.73m2 Critically low >=60 [facility] Comment on above: Performed By: #### A 1C #### [facility] [address] [address] [address] Fred Bell Globulin (S) [Mass/Vol] 6.5 g/dL Normal [facility] Comment on above: Performed By: #### A 1C #### [facility] [address] [address] [address] Fred Bell Glucose [Mass/Vol] 105 mg/dL Normal 74-106 [facility] Comment on above: Performed By: #### A 1C #### [facility] [address] [address] [address] Fred Bell Potassium [Moles/Vol] 4.3 mmol/L Normal 3.5-5.1 [facility] Comment on above: Performed By: #### A 1C #### [facility] [address] [address] [address] rFed Bell Protein [Mass/Vol] 8.8 g/dL Critically high 6.4-8.2 T [facility] Comment on above: Performed By: #### A 1C #### [facility] [address] [address] [address] Fred Bell Sodium [Moles/Vol] 139 mmol/L Normal 136-145 [facility] Comment on above: Performed By: #### A 1C #### [facility] [address] [address] [address] Fred Bell Urea nitrogen [Mass/Vol] 14.0 mg/dL Normal 7.0-18.0 [facility] Comment on above: Performed By: #### A 1C #### [facility] [address] [place] [address] Dr. Fred Bell Urea nitrogen/Creatinine [Mass ratio] 10.2 mg/mg Normal [facility] Comment on above: Performed By: #### A 1C #### [facility] [address] [place] [address] Dr. Fred Bell PROTIMEon 03-15-2022 INR Coag (PPP) [Relative time] 0.98 {INR} Normal [facility] Comment on above: Performed By: #### D DIM, PT, PTT #### [facility] [address] [place] [address] Dr. Fred Bell INR GUIDELINES SEE BELOW Normal [facility] Comment on above: Result Comment: SAMANTHA RED INR: 2.0 - 3.0 CONDITIONS NOT LISTED BELOW 2.5 - 3.5 FOR PROSTHETIC HEART VALVE REPLACEMENT 2.5 - 3.5 RECURRENT THROMBOSIS Performed By: #### D DIM, PT, PTT #### [facility] [address] [place] [address] Dr. Fred Bell PT Coag (PPP) [Time] 10.6 s Normal 9.0-11.6 [facility] Comment on above: Performed By: #### D DIM, PT, PTT #### [facility] [address] [place] [address] Dr. Fred Bell PTTon 03-15-2022 aPTT Coag (Bld) [Time] 26.0 s Normal 22.3-36.2 [facility] Comment on above: Performed By: #### C DIFPOC #### [facility] [address] [place] [address] Dr. Fred Bell XR CHEST 1 Von 03-15-2022 XR CHEST 1 V EXAMINATION: XR CHEST 1 V HISTORY: SHORTNESS OF BREATH COMPARISON: XR chest 11/09/2017 FINDINGS: LUNGS: Dense opacities partially obscuring the mid and lower left lung. Right lung is clear. VASCULATURE: No increased pulmonary vasculature. PLEURA: No pneumothorax, effusion, or pleural thickening. CARDIAC: No cardiomegaly or cardiac silhouette abnormality. MEDIASTINUM: No visible mass or adenopathy. BONES: No fracture or visible bone lesion. OTHER: Negative. IMPRESSION: 1. Marked left pulmonary infiltrates, most suggestive of pneumonia. Electronically authenticated by: DEEDEE LIZRARAGA Date: 2022-03-15 12:[address] [facility] Vital Signs Date Time Vital Sign Value Performing Clinician Facility 06-08-2022 18:40-0400 Body height 170.18 cm Anuja Perez Other [facility] Other 06-08-2022 18:40-0400 Body mass index (BMI) [Ratio] 21.92 kg/m2 Anuja Perez Other [facility] Other 06-08-2022 18:40-0400 Body temperature 99.1 [degF] Anuja Perez Other [facility] Other 06-08-2022 18:40-0400 Body weight 63.5 kg Anuja Perez Other [facility] Other 06-08-2022 18:40-0400 Respiratory rate 18 /min Anuja Perez Other [facility] Other 06-08-2022 18:40-0400 SaO2% (BldA) [Mass fraction] 97 % Anuja Perez Other [facility] Other Encounters Encounter Date Encounter Type Care Provider Facility Start: 11-14-2023 End: 11-14-2023 ambulatory KATARINA MADRIGAL Not Available Start: 10-17-2023 End: 10-17-2023 ambulatory KATARINA MADRIGAL Not Available Start: 06-21-2023 End: 06-23-2023 ambulatory [facility] Start: 12-20-2022 End: 12-21-2022 ambulatory DENVER COX Facility:[facility] Start: 12-01-2022 End: 12-01-2022 ambulatory [facility] Start: 11-19-2022 Encounter for genera l adult medical examination without abnormal findings DR KATARINA MADRIGAL [facility] Start: 11-15-2022 End: 11-16-[address] KATARINA MADRIGAL Facility:[facility] Start: 11-15-2022 End: 11-16-2022 Encounter for general adult medical examination without abnormal findings DR KATARINA MADRIGAL Facility:[facility] Start: 06-08-2022 End: 06-08-2022 ambulatory Anuja Perez Other [facility] Other Start: 06-08-2022 Office outpatient vi sit 15 minutes Anuja Perez [facility] Start: 04-05-2022 End: 04-06-[address] FRANCESCA BUENO Facility:[facility] Start: 03-30-2022 End: 03-30-[address] KATARINA MADRIGAL Facility:[facility] Start: 03-25-2022 End: 03-25-[address] KATARINA MADRIGAL Facility:[facility] Start: 03-23-2022 End: 03-23-[address] KATARINA MADRIGAL Facility:[facility] Start: 03-15-2022 End: 03-19-2022 Evaluation and management of inpatient JERE FERNANDEZ . Facility: Start: 01-03-2018 End: 01-04-2018 Ambulatory DEFAULT PHYSICIAN Facility:[facility] Start: 11-16-2017 End: 11-17-2017 Ambulatory DEFAULT PHYSICIAN Facility:[facility] Procedures Date Procedure Procedure Detail Performing Clinician Start: 11-15-2022 PSA screening JERE DUARTE MSA . Comment on above: Performed By: #### V ANCT #### [facility] [address] [place] [address] Dr. Fred Bell Start: 03-18-2022 Insertion of Infusio n Device into Superior Vena Cava, Percutaneous Approach JERE FERNANDEZ . Start: 03-16-2022 Drainage of Left Upp er Lung Lobe, Via Natural or Artificial Opening Endoscopic, Diagnostic JERE CHRISTY . Payers Date Payer Category Payer Unknown [id number] 2.16.84 [id number] 1966 Unknown [id number] 2.16.84 [id number] 1966 Unknown [id number] 2.16.84 [id number] 1966 Unknown [id number] 2.16.84 [id number] 1966 Unknown [id number] 2.16.84 [id number] 1966 Unknown [id number] 2.16.84 [id number] 1966 Unknown [id number] 2.16.84 [id number] 1966 Unknown [id number] 2.16.84 [id number] 1966 Unknown [id number] 2.16.84 [id number] 1959 Private Health Insurance [id number] Unknown Social History Date Type Detail Facility Unknown if ever smoked [facility] Other Sex Assigned At Sex Assigned At Bir th [facility] Other Progress note 06-21-2023 Note Date & Type Note Facility 06-21-2023 Note [facility] Note Chief Complaint: Patient here for 6 mo follow up CAD, hypertension, and hyperlipidemia. Had echo back in November 2022. Had labs in January. Had ADRIAN in Apr and is doing very well. Denies chest pain, SOB, and LE edema. HPI: Francesca Jhaveri is a 57 y.o. male with severe vasculopathy, prior coronary and peripheral bypass surgery here to see me for preoperative evaluation and reestablishment of cardiovascular care He denies exertional chest pain or shortness of breath. He has no significant palpitations, lightheadedness or dizziness. He denies syncope. No orthopnea, no paroxysmal, dyspnea, he has lower extremity edema particular over the left leg at the end of a long day. He had a history of percutaneous revascularization and stent placement as early as 2010. In 2018 he underwent coronary artery bypass graft surgery. He is unsure of how many grafts he received. He has had no chest pain since bypass. Update 06/21/2023: Doing very well. No new cardiovascular symptoms. Had right hip replacement with no adverse cardiovascular outcomes perioperatively. Cardiology ROS: Review of Systems All other systems reviewed and are negative. Past Medical History He has a past medical history of Coronary artery disease, Diabetes mellitus ([facility]), GERD (gastroesophageal reflux disease), Hyperlipidemia, Hypertension, and PVD (peripheral vascular disease) ([facility]). Surgical History He has a past surgical history that includes Cardiac catheterization; Aorta - bilateral femoral artery bypass graft; Coronary artery bypass graft; and Coronary stent placement. Social History He reports that he has quit smoking. His smoking use included cigarettes. He has never used smokeless tobacco. He reports current alcohol use. No history on file for drug use. Family History Family History Problem Relation Name Age of Onset Hypertension Father Allergies Patient has no known allergies. Medications Current Outpatient Medications: albuterol 90 mcg/actuation inhaler, albuterol sulfate HFA 90 mcg/actuation aerosol inhaler INHALE 2 PUFFS BY MOUTH EVERY 4 HOURS NEEDED for SHORTNESS OF BREATH, Disp: , Rfl: amLODIPine (Norvasc) 5 mg tablet, Take 1 tablet (5 mg) by mouth once daily as directed., Disp: 90 tablet, Rfl: 3 aspirin 81 mg chewable tablet, in the morning., Disp: , Rfl: atorvastatin (Lipitor) 80 mg tablet, Take 1 tablet (80 mg) by mouth at bedtime., Disp: 90 tablet, Rfl: 3 carvedilol (Coreg) 12.5 mg tablet, Take 1 tablet (12.5 mg) by mouth in the morning and at bedtime., Disp: 180 tablet, Rfl: 3 nabumetone (Relafen) 500 mg tablet, nabumetone 500 mg tablet TAKE 1 TABLET BY MOUTH TWICE DAILY NEEDED, Disp: , Rfl: omeprazole (PriLOSEC) [address] capsule, omeprazole 40 mg capsule,delayed release TAKE 1 CAPSULE BY MOUTH DAILY, Disp: , Rfl: tamsulosin (Flomax) 0.4 mg 24 hr capsule, Take 0.4 mg by mouth in the morning., Disp: , Rfl: traMADol (Ultram) 50 mg tablet, Take 50 mg by mouth every 4 (four) hours., Disp: , Rfl: Last Recorded Vitals BP 130/77 (BP Location: Left arm, Patient Position: Sitting) Pulse 81 Ht 1.702 m (5' 7 ) Wt 66.2 kg (146 lb) SpO2 99% BMI 22.87 kg/m??? Physical Examination: GENERAL: alert and oriented x3, well developed, in no acute distress. HEAD: atraumatic, normocephalic. EYES: ZENIA, EOMI. NECK: trachea midline, no JVD present, no carotid bruits present. CARDIAC: S1, S2 present. RRR. No murmur, rubs, or gallops. RESPIRATORY: CTAB, no increased effort of breathing, no rales, rhonchi, or wheezing. ABDOMEN: soft, nontender, nondistended. EXTREMITIES: no lower extremity edema, peripheral pulses are 2+ bilaterally. No rash/skin discoloration present. NEURO: strength/sensation equal and symmetric in bilateral upper and lower extremities. PSYCH: appropriate mood, affect, and judgement. Investigations: EKG shows sinus rhythm with nonspecific T wave changes in the septal leads. Echocardiogram 01/03/2018 Global left ventricular systolic function is normal. EF is 55%. The septum is abnormal in motion, not unusual finding in the post open heart patient. Normal right ventricular systolic function. No significant valvular abnormalities. Cardiac cath 11/25/2017: Conclusions: 1. Significant, ostial, left main disease with dampening of pressures upon cath engagement 2. Severe disease in obtuse marginal branch With 3 long segment stenosis in the right coronary artery Operative note 11/28/2017: Urgent coronary artery bypass grafting x3 with left internal mammary artery graft to the left anterior descending, free right internal mammary artery graft to the first obtuse marginal, reverse saphenous vein graft to the posterior descending artery Surgeon: Dr. Damián Cummings Echocardiogram 12/20/2022 Conclusion: Global left ventricular systolic function is low normal limits; EF is 50 to 55% Normal right ventricular (more content not included)... [facility] Progress note 12-01-2022 Note Date & Type Note Facility 12-01-2022 Note Patient here for 1.5 year follow up CAD, PVD, and hypertension Had routine labs last month. He has been out of amlodipine for 3-4 days. Denies chest pain, SOB, and palpitations. Review of Systems Cardiovascular: Positive for leg swelling. Musculoskeletal: Positive for arthritis, back pain, joint pain and muscle cramps. All other systems reviewed and are negative. [facility] Progress note 12-01-2022 Note Date & Type Note Facility 12-01-2022 Note Cardiovascular Medic [facility] SUBJECTIVE Chief Complaint Patient presents with Coronary Artery Disease Hypertension Hyperlipidemia Peripheral Vascular Disease Francesca Jhaveri is a 57 y.o. male here for follow-up. HPI 55-year-old man with severe vasculopathy, prior coronary and peripheral bypass surgery here to see me for preoperative evaluation and reestablishment of cardiovascular care He denies exertional chest pain or shortness of breath. He has no significant palpitations, lightheadedness or dizziness. He denies syncope. No orthopnea, no paroxysmal, dyspnea, he has lower extremity edema particular over the left leg at the end of a long day. He had a history of percutaneous revascularization and stent placement as early as 2010. In 2018 he underwent coronary artery bypass graft surgery. He is unsure of how many grafts he received. He has had no chest pain since bypass. He is in need of left hip surgery. 12/01/2022 Patient here for 1.5 year follow up CAD, PVD, and hypertension Had routine labs last month. He has been out of amlodipine for 3-4 days. Denies chest pain, SOB, and palpitations. He denies any changes since last seen. He c/o hip pain, he's hoping to have hip surgery this summer. His activity has been limited d/t his hip pain. He has dyspnea with exertion. He denies CP, palpitations, dizziness/LH. He has some intermittent right ankle swelling. He has not been checking his BP at home. Patient Active Problem List Diagnosis Coronary arteriosclerosis Diabetes mellitus (CMS/HCC) Gastroesophageal reflux disease Hyperlipidemia Peripheral vascular disease (CMS/HCC) Asthma without status asthmaticus Avascular necrosis of bone of hip (CMS/HCC) Disability of walking Arthritis of left hip Primary localized osteoarthritis of left hip Tobacco user Hypertensive disorder Primary hypertension Past Medical History: Diagnosis Date Coronary artery disease Diabetes mellitus ([facility]) GERD (gastroesophageal reflux disease) Hyperlipidemia Hypertension PVD (peripheral vascular disease) ([facility]) Family History Problem Relation Name Age of Onset Hypertension Father Social History Tobacco Use Smoking status: Former Types: Cigarettes Smokeless tobacco: Never Substance Use Topics Alcohol use: Yes Comment: occasional No Known Allergies ROS Cardiovascular: Positive for leg swelling and dyspnea on exertion. Musculoskeletal: Positive for arthritis, back pain, joint pain and muscle cramps. All other systems reviewed and are negative. OBJECTIVE Visit Vitals BP 158/81 (BP Location: Left arm, Patient Position: Sitting) Pulse 67 Ht 1.702 m (5' 7 ) Wt 63 kg (139 lb) SpO2 100% BMI 21.77 kg/m??? Smoking Status Former BSA 1.73 m??? Medications: Current Outpatient Medications: albuterol 90 mcg/actuation inhaler, albuterol sulfate HFA 90 mcg/actuation aerosol inhaler INHALE 2 PUFFS BY MOUTH EVERY 4 HOURS NEEDED for SHORTNESS OF BREATH, Disp: , Rfl: aspirin 81 mg chewable tablet, in the morning., Disp: , Rfl: atorvastatin (Lipitor) 80 mg tablet, Take 1 tablet (80 mg) by mouth at bedtime., Disp: 90 tablet, Rfl: 3 carvedilol (Coreg) 12.5 mg tablet, Take 1 tablet (12.5 mg) by mouth in the morning and at bedtime., Disp: 180 tablet, Rfl: 3 nabumetone (Relafen) 500 mg tablet, nabumetone 500 mg tablet TAKE 1 TABLET BY MOUTH TWICE DAILY NEEDED, Disp: , Rfl: omeprazole (PriLOSEC) [address] capsule, omeprazole 40 mg capsule,delayed release TAKE 1 CAPSULE BY MOUTH DAILY, Disp: , Rfl: tamsulosin (Flomax) 0.4 mg 24 hr capsule, Take 0.4 mg by mouth in the morning., Disp: , Rfl: traMADol (Ultram) 50 mg tablet, Take 50 mg by mouth every 4 (four) hours., Disp: , Rfl: amLODIPine (Norvasc) 5 mg tablet, Take 1 tablet (5 mg) by mouth once daily as directed., Disp: 90 tablet, Rfl: 3 Physical Exam Constitutional: Appearance: Normal appearance. He is normal weight. HENT: Head: Normocephalic and atraumatic. Right Ear: External ear normal. Left Ear: External ear normal. Eyes: Extraocular Movements: Extraocular movements intact. Pupils: Pupils are equal, round, and reactive to light. Neck: Vascular: No carotid bruit. Cardiovascular: Rate and Rhythm: Normal rate and regular rhythm. Pulses: Normal pulses. Heart sounds: Normal heart sounds. Pulmonary: Effort: Pulmonary effort is normal. Breath sounds: Normal breath sounds. Abdominal: General: Bowel sounds are normal. Palpations: Abdomen is soft. Musculoskeletal: General: Normal range of motion. Cervical back: Neck supple. Right lower leg: Edema (trace right ankle) present. Left lower leg: No edema. Skin: General: Skin is warm and dry. Neurological: General: No focal deficit present. Mental Status: He is alert and oriented to person, place, and time. Psychiatric: Mood and Affect: Mood normal. Beh (more content not included)... [facility] Evaluation note 06-08-2022 Note Date & Type Note Facility 06-08-2022 Evaluation note Encounter Date Diagnosis Assessment Notes May, Contact with and (suspected) exposure to other viral communicable diseases (ICD-10 - Z20.828) May, COVID-19 (ICD-10 - U07.1) Today you tested positive for the COVID virus. This mean you need to follow all CDC quarantine guidelines found at coronavirus.o hio.gov. It is important to rest, increase fluids, and stay at home. Recommend contacting primary care provider and discussing best course of action since youhave chronic health conditions. COVID POSITIVE education handout discharge instructions. given. 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 Medical History MILD ASTHMA Medical History GERD Medical History CHRONIC LUMBOSACRAL Medical History IMPOTENCE Medical History FATIGUE Surgical History AORA-ILIAC FEMORAL BYPASS 12-20 12 Surgical History OPEN HEART 11-28-2017 Hospitalization History SEE ABOVE Hospitalization History pneumonia Chideo Other Summary Purpose Family History No Family History Records FoundNo Family History Records FoundNo Family History Records FoundNo Family History Records Found Advance Directives No Advanced Directives Records FoundNo Advanced Directives Records FoundNo Advanced Directives Records FoundNo Advanced Directives Records Found Additional Source Comments (unrecognized sect ion and content) No Status Records FoundNo Status Records FoundNo Status Records FoundNo Status Records Found INFORMATION SOURCE (unrecogn ized section and content) DATE CREATED AUTHOR 03/16/2018 [facility] DATE CREATED AUTHOR AUTHOR'S ORGANIZ ATION 12/30/2022 [facility] DATE CREATED AUTHOR AUTHOR'S ORGANIZ ATION 06/29/2023 [facility] DATE CREATED AUTHOR AUTHOR'S ORGANIZ ATION 11/15/2023 [facility] EPIC REASON FOR VISIT (unrecogniz ed section and content) 2 DAYS OF COVID SYMPTOMS GRE Y CHEVY EQUINOX [id number] FOR RECORDS PERTAINING TO PATIENTS WHO ARE OR HAVE BEEN ENROLLED IN A CHEMICAL DEPENDENCY/SUBSTANCEABUSE PROGRAM, SOME INFORMATION MAY BE OMITTED. This clinical summary was aggregated from multiple sources. Caution should be exercised in using it in the provision of clinical care. This summary normalizes information from multiple sources, and as a consequence, information in this document may materially change the coding, format and clinical context of patient data. In addition, data may be omitted in some cases. CLINICAL DECISIONS SHOULD BE BASED ON THE PRIMARY CLINICAL RECORDS. [employer] provides no warranty or guarantee of the accuracy or completeness of information in this document.
--- NOTE | 2023-11-18 10:39 | CT_ITS ---
[address] [address] Patient Name: FRANCESCA JHAVERI MRN: [id number] date: 1965 Sex: M Assigned Patient Location: ER Current Patient Location: ER Accession/Order Number: [id number] Exam Date: 11/18/2023 11:15 Report Date: 11/18/2023 12:07 At the request of: HARMEET RODRIGUEZ Procedure: CT abdomen pelvis wo con EXAMINATION: CT abdomen pelvis wo con HISTORY: rule out perf appy ; right lower quadrant pain, diarrhea COMPARISON: No relevant comparison available. TECHNIQUE: Axial, Coronal, and Sagittal images were obtained without and/or with IV contrast as indicated by examination type. Dose reduction techniques were achieved by using automated exposure control and/or adjustment of mA and/or kV according to patient size and/or use of iterative reconstruction technique. FINDINGS: LUNG BASES: No visible pulmonary or pleural disease. LIVER: No enlargement, atrophy, suspicious density, or significant focal lesion. BILIARY: No dilatation or calcification. PANCREAS: No lesion, fluid collection, or abnormal duct dilatation. SPLEEN: No enlargement or focal lesion. ADRENALS: No mass or enlargement. KIDNEYS: No mass, obstruction, or calcification. BOWEL/MESENTERY: Dilated fluid-filled loops of small bowel throughout the length extending from stomach to terminal ileum. Mild circumferential wall thickening of terminal ileum without surrounding inflammatory changes. Relatively empty colon other than air within the proximal colon. Normal appendix. Moderate amount of free fluid within pelvic cul-de-sac. AORTA/VASCULAR: Prior aorto-bilateral iliac bypass grafts extending to the common femoral arteries which appear patent. Marked atherosclerotic narrowing of distal aorta below this level. RETROPERITONEUM: No mass or adenopathy. LYMPH NODES: No adenopathy. URINARY BLADDER: No visible focal wall thickening, lesion, or calculus. PELVIC ORGANS: No visible mass. Pelvic organs appropriate for patient age. ABDOMINAL WALL: 1 cm supraumbilical midline ventral hernia soft tissue density, and may represent focal area of stranding in the fat. This is immediately adjacent and may be connected to a loop of small bowel within the anterior abdomen. No bowel enters the tiny hernia sac and I do not see appreciable wall thickening of the adjacent bowel. BONES: L5-S1 marked degenerative disc disease. Bilateral hip replacements. OTHER: Negative. CT/CT abdomen pelvis wo con IMPRESSION: 1. Normal appendix. 2. Dilated, air and fluid-filled small bowel throughout its length; nonspecific but suggestive of enteritis. Mild wall thickening of the terminal ileum raises possibility of possible inflammatory bowel disease. 3. Small anterior abdominal wall strangulated 1 cm fatty hernia sac versus soft tissue nodule. Correlate for abdominal wall tenderness approximately 2 cm cephalad to the umbilicus. 4. Additional chronic changes detailed above. Electronically authenticated by: DEEDEE LIZARRAGA Date: 11/18/2023 12:07
[2023-11-18] MEDS: LACTATED RINGER'S SOLUTION 1,000 ML 2000 ML IV (10:41)
--- NOTE | 2023-11-18 10:43 | ED.GENADUL1 ---
HPI - General Adult General Chief complaint: Abdominal Pain Stated complaint: ABDOMINAL PAIN Time Seen by Provider: 11/18/23 10:15 Source: patient Mode of arrival: walk-in Limitations: no limitations History of Present Illness HPI narrative: Patient is a 58-year-old male who is presenting to the ER today with chief complaint of diffuse abdominal pain, more focalized to the right lower quadrant since Tuesday evening. Patient is been having fairly consistent pain since Tuesday. Patient had watery diarrhea today. Patient been having intermittent nausea and vomiting since Tuesday. Patient still has his gallbladder and appendix. Patient has no chest pain or shortness of breath. Patient has no urinary complaints. Patient has no history of kidney stones. Patient has no sick contacts that he is aware of. Patient has no tenderness to palpation to testicles, he has no flank pain or back pain. Patient stated the bumps on the road on the way here it did hurt. All systems are negative except as noted/marked. All systems reviewed and otherwise negative. Nurses note and vital signs reviewed and patient is not hypoxic. General: The patient appears well and in no apparent distress. Patient is resting uncomfortably on cart. Patient is not toxic, lethargic, or listless Skin: Warm, dry, no pallor noted. There is no rash noted. No petechiae, purpura. Head: Normocephalic, atraumatic Eye: Normal conjunctiva, no drainage, EOMI. PERRL Ears, Nose, Mouth, and Throat: oral mucosa is moist. Nares patent. Mouth without vesicles. Cardiovascular: Regular Rate and Rhythm, no murmur, gallop, rub Respiratory: Patient is in no distress, no accessory muscle use, lungs are clear to auscultation, no wheezing, rales or rhonchi Back: non-tender, no CVA tenderness bilaterally to percussion. No CT LS midline pain GI: Firm, mild to moderately distended, hypoactive bowel sounds, moderate to severe right lower quadrant tenderness palpation, no flank pain to tenderness bilateral, mild tympany, mild diffuse tenderness to palpation, no masses appreciated. No rebound, guarding, or rigidity noted. No distention Musculoskeletal: Patient has full range of motion of all of the extremities, no motor, sensory, or focal neurological deficits Neurological: A&O x4, normal speech Psychiatric: Cooperative Related Data Home Medications Medication Instructions Recorded Confirmed albuterol sulfate 90 mcg/actuation 2 inh inhalation Q4H PRN shortness 11/18/23 11/18/23 aerosol inhaler of breath or wheezing amlodipine 5 mg tablet 5 mg PO DAILY 11/18/23 11/18/23 atorvastatin 80 mg tablet 80 mg PO BEDTIME 11/18/23 11/18/23 carvedilol 12.5 mg tablet 12.5 mg PO Q12H 11/18/23 11/18/23 dapagliflozin propanediol 10 mg 10 mg PO .DADIL 11/18/23 11/18/23 tablet (Farxiga) furosemide 40 mg tablet 40 mg PO DAILY 11/18/23 11/18/23 lisinopril 10 mg tablet 10 mg PO DAILY 11/18/23 11/18/23 nabumetone 500 mg tablet 500 mg PO BID PRN pain 11/18/23 11/18/23 omeprazole 40 mg capsule,delayed 40 mg PO DAILY 11/18/23 11/18/23 release tiotropium 2.5 mcg-olodaterol 2.5 2 puff inhalation Q24H 11/18/23 11/18/23 mcg/actuation mist for inhalation (Stiolto Respimat) tramadol 50 mg tablet 50 mg PO Q4H PRN pain 11/18/23 11/18/23 Previous Rx's Medication Instructions Recorded dicyclomine 20 mg tablet 20 mg PO TID PRN abdominal pain #7 11/18/23 tabs ondansetron 4 mg disintegrating 4 mg PO Q4H PRN nausea and 11/18/23 tablet vomiting 3 days #6 tabs Allergies Allergy/AdvReac Type Severity Reaction Status Date / Time No Known Drug Allergies Allergy Verified 11/18/23 09:59 [facility] Medical History (Updated 11/18/23 @ 14:55 by Billy Moctezuma MD) Diabetes ?E11.9 - Type 2 diabetes mellitus without complications (ICD-10) Chronic kidney disease ?N18.9 - Chronic kidney disease, unspecified (ICD-10) COPD (chronic obstructive pulmonary disease) ?J44.9 - Chronic obstructive pulmonary disease, unspecified (ICD-10) GERD (gastroesophageal reflux disease) ?K21.9 - Gastro-esophageal reflux disease without esophagitis (ICD-10) HTN (hypertension) ?I10 - Essential (primary) hypertension (ICD-10) Surgical History (Updated 11/18/23 @ 10:10 by Darcy Swartz) Hip joint replacement status ?Z96.649 - Presence of unspecified artificial hip joint (ICD-10) Hx of CABG ?Z95.1 - Presence of aortocoronary bypass graft (ICD-10) Social History Smoking status: Former smoker Exam Constitutional Vital Signs, click to edit/add: Last Vital Signs Temp 97.6 F 11/18/23 09:59 Pulse 90 11/18/23 14:10 Resp 16 11/18/23 14:10 BP 104/39 L 11/18/23 14:10 Pulse Ox 98 11/18/23 09:59 O2 Del Method Room Air 11/18/23 09:59 Course Vital Signs Vital signs: Vital Signs Temperature 97.6 F 11/18/23 09:59 Pulse Rate 78 11/18/23 09:59 Respiratory Rate 18 11/18/23 09:59 Blood Pressure 107/58 11/18/23 09:59 Pulse Oximetry 98 11/18/23 09:59 Oxygen Delivery Method Room Air 11/18/23 09:59 Temperature 97.6 F 11/18/23 09:59 Pulse Rate 90 11/18/23 14:10 Respiratory Rate 16 11/18/23 14:10 Blood Pressure 104/39 L 11/18/23 14:10 Pulse Oximetry 98 11/18/23 09:59 Oxygen Delivery Method Room Air 11/18/23 09:59 Medical Decision Making MDM Narrative Medical decision making narrative: 1120 Patient's BUN and creatinine were 51/3.3 on October 17, 2023. Patient's BUN and creatinine today are 34/3. Patient has been told that he has slightly elevated kidney function test in the past, he has been told that is normal for him in the past, and they have been watching it. Patient has had triple bypass approximately 5 years ago at [facility]. Patient takes 4 different medications for blood pressure. Patient takes a cholesterol medication as well, patient takes omeprazole, lisinopril, 6, statin, Coreg, amlodipine, Farxiga. Patient has elevated white blood cell count of 16. We will not do IV contrast, patient will initially have a CT with no contrast oral IV secondary kidney function. Patient has received 1 L of lactic Ringer's so far, he is getting a second liter of lactated ringer. [address] Villagomez approximately 30 minutes ago and he just call me back after he has reviewed patient's CT of the abdomen and pelvis. He does not think there is anything acute, does look like significant dehydration along with colitis and enteritis. He suggested doing a GI panel which is a good idea to make sure that patient does not have a bacterial infection. I have spoken to the patient just before this phone call, and patient's blood pressure was in the 90s over 60s, he will be given the third bag of IV fluids, he does not want to be admitted to the hospital overnight. Patient's pain and nausea has improved 1430 patient's lactic acid has significantly improved. Patient feels better after 3 L of IV fluid. Patient will be sent home with prescription for Zofran and Bentyl. Patient will follow-up with Dr. Villagomez as needed. Dr. Darling is going to be have patient follow-up with nephrology for chronic kidney disease. Patient will record his blood pressure twice a day at home, and present a blood pressure log to Dr. Darling. Patient will increase fluids. Patient understands increase of his other week and, work note given. Critical care time 32 minutes exclusive from separate billable procedures that were performed. The following was considered in the determination of critical care but not limited to the level of medical decision making, intensive cardiac and/or respiratory monitoring, frequent vital sign monitoring, evaluation of laboratory studies, evaluation of radiographic studies, oxygen monitoring, and constant monitoring and speaking to family at bedside Lab Data Lab results reviewed: Yes I reviewed the patient's lab results Labs: Lab Results 11/18/23 11/18/23 11/18/23 Range/Units 10:30 11:05 13:36 WBC 16.3 H (4.0-11.0) 10^3/uL RBC 3.46 L (4.70-6.10) 10^6/uL Hgb 11.0 L (14.0-18.0) g/dL Hct 35.5 L (42.0-54.0) % MCV 102.6 H (80.0-94.0) fL MCH 31.8 (25.9-34.0) pg MCHC 31.0 (29.9-35.2) g/dL RDW 14.5 (11.0-15.0) % Plt Count 233 (150-450) 10^3/uL MPV 10.6 (9.5-13.5) fL Neut % (Auto) 75.1 H (43.0-75.0) % Lymph % (Auto) 13.2 L (20.5-60.0) % [place] % (Auto) 5.8 (1.7-12.0) % Eos % (Auto) 3.1 (0.9-7.0) % Baso % (Auto) 0.7 (0.2-2.0) % Neut # (Auto) 12.3 H (1.4-6.5) 10^3/uL Lymph # (Auto) 2.2 (1.2-3.8) 10^3/uL [place] # (Auto) 0.9 H (0.3-0.8) 10^3/uL Eos # (Auto) 0.5 (0.0-0.7) 10^3/uL Baso # (Auto) 0.1 (0.0-0.1) 10^3/uL Abs Immat Gran (auto) 0.35 H (0.00-0.03) 10^3/uL Imm/Tot Granulo (auto) 2.1 H (0.0-0.5) % Sodium 141 (136-145) mmol/L Potassium 3.9 (3.5-5.1) mmol/L Chloride 101 (98-107) mmol/L Carbon Dioxide 26.6 (21.0-32.0) mmol/L Anion Gap 17.3 BUN 34.0 H (7.0-18.0) mg/dL Creatinine 3.02 H (0.70-1.30) mg/dL Est GFR ( Amer) 26 L (>=60) Est GFR (Non-Af Amer) 22 L (>=60) BUN/Creatinine Ratio 11.3 Glucose 114 H (74-106) mg/dL Lactate 3.7 H* 1.5 (0.4-2.0) mmol/L Calcium 8.6 (8.5-10.1) mg/dL Total Bilirubin 0.4 (0.2-1.0) mg/dL AST 44 H (15-37) U/L ALT 33 (16-63) U/L Alkaline Phosphatase 194 H (46-116) U/L Troponin I High Sens 5.9 (4.0-76.1) pg/mL Total Protein 7.7 (6.4-8.2) g/dL Albumin 3.0 L (3.4-5.0) g/dL Globulin 4.7 g/dL Albumin/Globulin Ratio 0.6 Lipase 112.0 H (16.0-77.0) U/L Urine Color Yellow (YELLOW) Urine Clarity Clear (CLEAR) Urine pH 5.0 (5.0-9.0) Ur Specific [place] 1.020 (1.005-1.025) Urine Protein 30 A (NEG/TRACE) mg/dL Urine Glucose (UA) 250 A (NEGATIVE) mg/dL Urine Ketones Trace A (NEGATIVE) mg/dL Urine Occult Blood Negative (NEGATIVE) Urine Nitrite Negative (NEGATIVE) Urine Bilirubin Negative (NEGATIVE) Urine Urobilinogen 0.2 (0.2-1.0) EU/dL Ur Leukocyte Esterase Negative (NEGATIVE) Urine RBC 0-2 (0-2) #/HPF Urine WBC 0-2 A (NONE SEEN) #/HPF Ur Squamous Epith Cells Few A (NONE/RARE) #/LPF Urine Crystals Seen A (None Seen) #/HPF Amorphous Sediment Few Urine Bacteria Trace A (NONE SEEN) #/HPF Urine Casts Seen A (NONE SEEN) #/LPF Hyaline Casts Few Urine Mucus None seen (NONE SEEN) ECG Data Attestation: I personally reviewed and interpreted this ECG as follows: (EKG interpretation. Normal sinus rhythm at 69 beats a minute. Normal axis deviation. Artifact seen. QTc of 415.) Discharge Plan Discharge Chief Complaint: Abdominal Pain Clinical Impression: Enteritis, Abdominal pain, Nausea & vomiting, Dehydration, Chronic kidney disease Patient Disposition: Home, Self-Care Time of Disposition Decision: 14:49 Condition: Fair Mode of Transportation: Private Vehicle Prescriptions / Home Meds: New dicyclomine 20 mg tablet 20 mg PO TID PRN (Reason: abdominal pain) Qty: 7 0RF ondansetron 4 mg tablet,disintegrating 4 mg PO Q4H PRN (Reason: nausea and vomiting) 3 Days Qty: 6 0RF No Action albuterol sulfate 90 mcg/actuation HFA aerosol inhaler 2 inh INHALATION Q4H PRN (Reason: shortness of breath or wheezing) amlodipine 5 mg tablet 5 mg PO DAILY atorvastatin 80 mg tablet 80 mg PO BEDTIME carvedilol 12.5 mg tablet 12.5 mg PO Q12H dapagliflozin propanediol [Farxiga] 10 mg tablet 10 mg PO .DADIL furosemide 40 mg tablet 40 mg PO DAILY lisinopril 10 mg tablet 10 mg PO DAILY nabumetone 500 mg tablet 500 mg PO BID PRN (Reason: pain) omeprazole 40 mg capsule,delayed release(DR/EC) 40 mg PO DAILY Stiolto Respimat 2.5-2.5 mcg/actuation mist 2 puff INHALATION Q24H tramadol 50 mg tablet 50 mg PO Q4H PRN (Reason: pain) Instructions: Dehydration (ED), Chronic Kidney Disease (ED), Acute Nausea and Vomiting (ED), Abdominal Pain (ED), Enteritis (ED) Additional Instructions: Dr. Villagomez is the surgeon who has reviewed your CAT scan and your case today. His name was given for referral if needed. A copy of your CAT scan has been given to you. Increase fluids. Take your blood pressure twice a day at home, record the numbers, present those numbers to Dr. Darling the next time you see him in the office. Use Zofran as needed for nausea, use Bentyl as needed for abdominal cramping. Increase fluids at home. Dr. Darling will refer you to nephrology as well secondary to follow-up with chronic renal insufficiency. Stand Alone Forms: Portal Instructions Referrals: Riley Darling MD [Primary Care Provider] - 1 week Omar Villagomez MD [Physician] - 1 week Discharge Date/Time: 11/18/23 15:05
[2023-11-18 10:46] LABS: Basophils Absolute Auto 0.1 10^3/uL (0.0-0.1); Basophils Percent Auto 0.7 % (0.2-2.0); Eosinophils Absolute Auto 0.5 10^3/uL (0.0-0.7); Eosinophils Percent Auto 3.1 % (0.9-7.0); Hematocrit 35.5 % (42.0-54.0); Immature Granulocytes Abs Auto 0.35 10^3/uL (0.00-0.03); Immature Granulocytes Pct Auto 2.1 % (0.0-0.5); Lymphocytes Absolute Auto 2.2 10^3/uL (1.2-3.8); Lymphocytes Percent Auto 13.2 % (20.5-60.0); Mean Corpuscular Hemoglobin 31.8 pg (25.9-34.0); Mean Corpuscular Volume 102.6 fL (80.0-94.0); Mean Platelet Volume 10.6 fL (9.5-13.5); Monocytes Absolute Auto 0.9 10^3/uL (0.3-0.8); Monocytes Percent Auto 5.8 % (1.7-12.0); Neutrophils Absolute Auto 12.3 10^3/uL (1.4-6.5); Neutrophils Percent Auto 75.1 % (43.0-75.0); Platelet Count 233 10^3/uL (150-450); Red Blood Count 3.46 10^6/uL (4.70-6.10); Red Cell Distribution Width 14.5 % (11.0-15.0); White Blood Count 16.3 10^3/uL (4.0-11.0)
[2023-11-18 10:58] LABS: Alanine Aminotransferase 33 U/L (16-63); Albumin Globulin Ratio 0.6; Alkaline Phosphatase 194 U/L (46-116); Anion Gap 17.3; Aspartate Amino Transferase 44 U/L (15-37); BUN Creatinine Ratio 11.3; Bilirubin Total 0.4 mg/dL (0.2-1.0); Calcium 8.6 mg/dL (8.5-10.1); Carbon Dioxide 26.6 mmol/L (21.0-32.0); Chloride 101 mmol/L (98-107); Estimated GFR (African America 26 (>=60); Estimated GFR (Non-African Ame 22 (>=60); Globulin 4.7 g/dL; Glucose 114 mg/dL (74-106); Potassium 3.9 mmol/L (3.5-5.1); Sodium 141 mmol/L (136-145); Total Protein 7.7 g/dL (6.4-8.2)
[2023-11-18 11:01] LABS: Troponin I High Sensitivity 5.9 pg/mL (4.0-76.1)
[2023-11-18 11:02] LABS: Lactate/Lactic Acid 3.7 mmol/L (0.4-2.0)
[2023-11-18] MEDS: KETOROLAC TROMETHAMINE 30 MG/ML VIAL 15 MG IVP (11:11)
[2023-11-18] MEDS: ONDANSETRON PF 4 MG/2 ML VIAL IV (11:11)
[2023-11-18 11:20] LABS: Bilirubin Urine NEGATIVE (NEGATIVE); Blood Urine NEGATIVE (NEGATIVE); Clarity Urine CLEAR (CLEAR); Color Urine YELLOW (YELLOW); Glucose Urine UA 250 mg/dL (NEGATIVE); Ketones Urine TRACE mg/dL (NEGATIVE); Leukocyte Esterase Urine NEGATIVE (NEGATIVE); Nitrite Urine NEGATIVE (NEGATIVE); Protein Urine 30 mg/dL (NEG/TRACE); Urobilinogen Urine 0.2 EU/dL (0.2-1.0)
[2023-11-18 11:34] LABS: Amorphous Sediment Urine FEW; Bacteria Urine TRACE #/HPF (NONE SEEN); Cast Seen? SEEN #/LPF (NONE SEEN); Crystals Seen? Seen #/HPF (None Seen); Hyaline Casts Urine FEW; Mucus Urine NONE SEEN (NONE SEEN); RBC Urine 0-2 #/HPF (0-2); Squamous Epithelial Cell Urine FEW #/LPF (NONE/RARE); WBC Urine 0-2 #/HPF (NONE SEEN)
--- NOTE | 2023-11-18 13:08 | ECG_ITS ---
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
[2023-11-18] MEDS: LACTATED RINGER'S SOLUTION 1,000 ML 1000 ML IV (13:24)
[2023-11-18 13:59] LABS: Lactate/Lactic Acid 1.5 mmol/L (0.4-2.0)
== END 2023-11-18 15:05 | disposition home or self-care (01) ==
PROVIDERS: Emergency Provider Emergency Medicine; PCP Family Medicine
DX: E86.0 Dehydration (principal); K52.9 Noninfective gastroenteritis and colitis, unspecified; Z79.899 Other long term (current) drug therapy; E11.22 Type 2 diabetes mellitus with diabetic chronic kidney disease; N18.9 Chronic kidney disease, unspecified; J44.9 Chronic obstructive pulmonary disease, unspecified; K21.9 Gastro-esophageal reflux disease without esophagitis; I12.9 Hypertensive chronic kidney disease with stage 1 through stage 4 chronic kidney disease, or unspecified chronic kidney disease; Z95.1 Presence of aortocoronary bypass graft; Z96.649 Presence of unspecified artificial hip joint; Z87.891 Personal history of nicotine dependence; R11.2 Nausea with vomiting, unspecified; R10.31 Right lower quadrant pain
CPT/HCPCS: 36415; 74176; 80053; 81001; 83605; 83690; 84484; 85025; 87493; 87507; 93005; 96361; 96374; 96375; 99285; J1885; J2405

== ENCOUNTER 2023-11-28 08:27 | Outpatient (OUT) | payer OTHER, SELFPAY ==
--- NOTE | 2023-11-28 | PCN_ITS ---
CARDIAC STRESS TEST Requesting Physician: Procedure Date: 11/28/2023 This was a Lexiscan stress test with myocardial perfusion imaging performed at the [facility] on 11/28/2023. Informed consent was obtained. An intravenous line was secured. Baseline vital signs and ECG were obtained. The test started out as a treadmill exercise stress test; however, due to inability of the patient to walk on a treadmill, this was switched to a Lexiscan stress test. Resting heart rate was 86 BPM and resting blood pressure 130/76. Peak heart rate was 99 BPM and peak blood pressure was 130/76. Resting ECG showed evidence of normal sinus rhythm. ECG following infusion of Lexiscan showed evidence of sinus tachycardia with no ischemic ST changes. Final ECG showed evidence of sinus rhythm and was comparable to baseline. SUMMARY OF THE FINDINGS: 1. No evidence of ischemic ECG changes noted after infusion of Lexiscan. 2. Myocardial perfusion images will be reported separately. JOANAD
--- NOTE | 2023-11-28 08:15 | NM_ITS ---
Patient Name: CHITO JHAVERI MR#: [id number] : 1965 Exam Date: 11/28/2023 Ordering Doctor: DR Riley Darling . RADIOLOGY REPORT PROCEDURE: NM DEEPALI PERF SPECT REST STR COMPARISON: None. INDICATIONS: CHRONIC HEART FAILURE WITH PRESERVED EJECTION FRACTION TECHNIQUE: Exam Description: Stress/Rest one day protocol gated SPECT Rest Imagin.4 mCi Tc-99m Cardiolite IV on 11/28/2023 Stress Imaging 30.1 mCi Tc-99m Cardiolite IV on 11/28/2023 Exercise Protocol: 0.4 mg Lexiscan given IV Heart Rate (bpm): Rest: 86 Max: 99 PMHR: 60 Blood Pressure: Rest: 130/76 Max: 130/76 Symptoms: Rest and peak stress ECG findings were normal and the exercise portion of the study was normal per attending physician Dr. Lucas . For more details please see separate cardiac stress test report. FINDINGS: QUALITY OF STUDY: Good. PERFUSION DEFECT: None. LOCATION: N/A SIZE: N/A. SEVERITY: N/A. TYPE: N/A. WALL MOTION: Normal. LV SIZE: Normal. 69 mL. TID / TCD: None; 0.8 LVEF: Normal. Calculated EF 65%. SUMMARY: Myocardial perfusion imaging study is NORMAL. CONCLUSION: 1. No reversible ischemia 2. Normal exercise test Dictated by: Chito Robles MD on 11/29/2023 at 11:39 Approved by: Chito Robles MD on 11/29/2023 at 11:41
--- OUTSIDE RECORDS SUMMARY | 2023-11-28 08:30 | XMS_ITS | CCD ---
Author Name Unknown Address [id number] [place] [address] Organization [facility] Care Team Providers Care Switchgear Repairer Name Role Phone PHYSICIAN, DEFAULT Unavailable Unavailable [...] Unavailable ROHAN, DR KATARINA Peña Consulting Unavailable PLATINUM, DR FRANCESCA Haynes Consulting Unavailable JIM ., [...] extended release oral tablet (1 source) Uncompetitive [place]az-[place] te Receptor Antagonist, Sigma-1 Agonist Start: 2 [...] disease (7 sources) Atherosclerotic heart disease of [place] coronary artery without angina pectoris; Translations: [ASHD YOCHA DEHE CA W/O ANGINA PECTORIS] Onset: 2 Chronic [...] Onset: 03-30-2022 Episodic Other aftercare (1 source) emt intermediate (current) use of aspirin; Translations: [NURSING HOME CURRENT USE OF ASPIRIN] Onset: 03-30-2022 Episodic Other aftercare (1 source) Other care home (current) drug therapy; Translations: [OTH NURSING HOME CURRENT DRUG THERAPY] Onset: 03-30-2022 Episodic [...] Range Facility Office Visiton 06-21-2023 Follow-up visit [id number] Francesca Jhaveri 1965 M Date Provider Department Center 06/21/2023 [facility] Laura Bates Family History Problem Relation Age of Onset Hypertension Father Family Status - Relation Status Age at Father Level of Service:[address] [place] OFFICE/OUTPATIENT ESTABLISHED MOD MDM 30-39 MIN [facility] 36on 03-03-2023 36 I updated my last office note from November with the clearance. Thanks [facility] 36 Did he have ECHO done? [facility] ECHOCARDIO M/2D COMPLETEon 0 12-20-2022 ECHOCARDIO M/2D COMPLETE Patient: FRANCESCA JHAVERI Exam Date: 12/20/2022 : 1965 Gender:M Ordering : [facility] Admission #: [id number] Family : DR KATARINA MADRIGAL . Order #: [id number] CLICK HERE TO VIEW EXAM ECHOCARDIOGRAM REPORT [...] John Lucas M.D. on 12/21/2022 at 17:27 [place] [facility] Office Visiton 12-01-2022 Follow-up visit [id number] Francesca Jhaveri 1965 M Date Provider Department Center 12/01/2022 [facility] Family History Problem Relation Age of Onset Hypertension Father Family Status - Relation Status Age at Father Level of Service:46889 [place] OFFICE/OUTPATIENT ESTABLISHED MOD MDM 30-39 MIN Reason for Visit and Comments: Coronary Artery Disease [187] Hypertension [662885] Hyperlipidemia [182] Peripheral Vascular Disease [458] Normal [facility] CBC AUTO DIFFon 11-15-2022 BASO # 0.1 103/ul Normal 0.0-0.1 [facility] Comment on above: Performed By: #### A 1C #### [facility] [address] [place] [address] Dr. Fred Bell Basophils/100 WBC (Bld) 0.9 % Normal 0.2-2.0 [facility] Comment on above: Performed By: #### A 1C #### [facility] [address] [place] [address] Dr. Fred Bell EO # 0.3 103/ul Normal 0.0-0.7 [facility] Comment on above: Performed By: #### A 1C #### [facility] [address] [place] [address] Dr. Fred Bell Eosinophils/100 WBC (Bld) 2.9 % Normal 0.9-7.0 [facility] Comment on above: Performed By: #### A 1C #### [facility] [address] [place] [address] Dr. Fred Bell Erythrocyte distribution width (RBC) [Ratio] 14.3 % Normal 11.0-15.0 [facility] Comment on above: Performed By: #### A 1C #### [facility] [address] [place] [address] Dr. Fred Bell Hematocrit (Bld) [Volume fraction] 41.6 % Critically low 42.0-54.0 [facility] Comment on above: Performed By: #### A 1C #### [facility] [address] [place] [address] Dr. Fred Bell Hemoglobin (Bld) [Mass/Vol] 13.6 g/dL Critically low 14.0-18.0 [facility] Comment on above: Performed By: #### A 1C #### [facility] [address] [place] [address] Dr. Fred Bell IG # 0.03 10e3/ul Normal 0.00-0.03 [facility] Comment on above: Performed By: #### A 1C #### [facility] [address] [place] [address] Dr. Fred Bell IG % 0.4 % Normal 0.0-0.5 [facility] Comment on above: Performed By: #### A 1C #### [facility] [address] [place] [address] Dr. Fred Bell LYMPH # 2.0 103/ul Normal 1.2-3.8 [facility] Comment on above: Performed By: #### A 1C #### [facility] [address] [place] [address] Dr. Fred Bell Lymphocytes/100 WBC (Bld) 23.3 % Normal 20.5-60.0 [facility] Comment on above: Performed By: #### A 1C #### [facility] [address] [place] [address] Dr. Fred Bell MANUAL DIFF REQ NO Normal [facility] Comment on above: Performed By: #### A 1C #### [facility] [address] [place] [address] Dr. Fred Bell MCH (RBC) [Entitic mass] 29.8 pg Normal 25.9-34.0 [facility] Comment on above: Performed By: #### A 1C #### [facility] [address] [place] [address] Dr. Fred Bell MCHC (RBC) [Mass/Vol] 32.7 g/dL Normal 29.9-35.2 [facility] Comment on above: Performed By: #### A 1C #### [facility] [address] [place] [address] Dr. Fred Bell MCV (RBC) [Entitic vol] 91.0 fL Normal 80.0-94.0 [facility] Comment on above: Performed By: #### A 1C #### [facility] [address] [place] [address] Dr. Fred Bell MONO # 0.6 103/ul Normal 0.3-0.8 [facility] Comment on above: Performed By: #### A 1C #### [facility] [address] [place] [address] Dr. Fred Bell Monocytes/100 WBC (Bld) 6.7 % Normal 1.7-12.0 [facility] Comment on above: Performed By: #### A 1C #### [facility] [address] [place] [address] Dr. Fred Bell NEUT # 5.6 103/ul Normal 1.4-6.5 [facility] Comment on above: Performed By: #### A 1C #### [facility] [address] [place] [address] Dr. Fred Bell Neutrophils/100 WBC (Bld) 65.8 % Normal 43.0-75.0 [facility] Comment on above: Performed By: #### A 1C #### [facility] [address] [place] [address] Dr. Fred Bell Platelet mean volume (Bld) [Entitic vol] 9.7 fL Normal 9.5-13.5 [facility] Comment on above: Performed By: #### A 1C #### [facility] [address] [place] [address] Dr. Fred Bell PLT 289 103/ul Normal 150-450 [facility] Comment on above: Performed By: #### A 1C #### [facility] [address] [place] [address] Dr. Fred Bell RBC 4.57 106/ul Critically low 4.70-6.10 [facility] Comment on above: Performed By: #### A 1C #### [facility] [address] [place] [address] Dr. Fred Bell WBC 8.5 103/ul Normal 4.0-11.0 [facility] Comment on above: Performed By: #### A 1C #### [facility] [address] [address] [address] Fred Bell GLYCOHEMOGLOBIN A1Con 2022 ADA RECOMMENDATION SEE BELOW Normal [facility] Comment on above: Result Comment: ADA RECOMMENDED LIMIT 4.0 - 6.0 ADA THERAPEUTIC TARGET < 7.0 ACTION SUGGESTED > 7.0 Performed By: #### A 1C #### [facility] [address] [address] [address] Fred Bell Glucose [Mass/Vol] 111 mg/dL Normal [facility] Comment on above: Performed By: #### A 1C #### [facility] [address] [place] [address] Dr. Fred Bell HbA1c (Bld) [Mass fraction] 5.5 % Normal 4.5-6.2 [facility] Comment on above: Performed By: #### A 1C #### [facility] [address] [address] [address] Fred Bell LIPID PROFILEon 11-15-2022 CHOL-HDL RATIO NORM SEE BELOW Normal [facility] Comment on above: Result Comment: 3.3 - 4.4 LOW RISK 4.4 - 7.1 AVERAGE RISK 7.1 - 11.0 MODERATE RISK >11.0 HIGH RISK Performed By: #### V ANCT #### [facility] [address] [place] [address] Dr. Fred Bell Cholesterol [Mass/Vol] 210 mg/dL Critically high <=200 [facility] Comment on above: Performed By: #### V ANCT #### [facility] [address] [address] [address] Fred Bell Cholesterol in HDL [Mass/Vol] 101 mg/dL Critically high 40-60 [facility] Comment on above: Performed By: #### V ANCT #### [facility] [address] [address] [address] Fred Bell Cholesterol in LDL [Mass/Vol] 94.2 mg/dL Normal [facility] Comment on above: Performed By: #### V ANCT #### [facility] [address] [place] [address] Dr. Fred Bell Cholesterol.total/Ch olesterol in HDL [Mass ratio] 2.1 {ratio} Normal [facility] Comment on above: Performed By: #### V ANCT #### [facility] [address] [place] [address] Dr. Fred Bell HDL NORMAL > or = 60 mg/dl - LOW CARDIOVASCULAR RISK <40 mg/dl - HIGH CARDIOVASCULAR RISK Normal [facility] Comment on above: Performed By: #### V ANCT #### [facility] [address] [place] [address] Dr. Fred Bell LDL CALC NORMAL SEE BELOW Normal [facility] Comment on above: Result Comment: <100 mg/dl OPTIMAL 100 - 129 mg/dl NEAR OR ABOVE OPTIMAL 130 - 159 mg/dl BORDERLINE HIGH 160 - 189 mg/dl HIGH >190 mg/dl VERY HIGH Performed By: #### V ANCT #### [facility] [address] [place] [address] Dr. Fred Bell Triglyceride [Mass/Vol] 74 mg/dL Normal <=150 [facility] Comment on above: Performed By: #### V ANCT #### [facility] [address] [place] [address] Dr. Fred Bell VLDL CALC 14.8 mg/dL Normal [facility] Comment on above: Performed By: #### V ANCT #### [facility] [address] [place] [address] Dr. Fred Bell LIVER PROFILEon 11-15-2022 Albumin [Mass/Vol] 4.2 g/dL Normal 3.4-5.0 [facility] Comment on above: Performed By: #### V ANCT #### [facility] [address] [place] [address] Dr. Fred Bell Albumin/Globulin [Mass ratio] 1.0 {ratio} Normal [facility] Comment on above: Performed By: #### V ANCT #### [facility] [address] [place] [address] Dr. Fred Bell ALP [Catalytic activity/Vol] 154 U/L Critically high 46-116 [facility] Comment on above: Performed By: #### V ANCT #### [facility] [address] [address] [address] Fred Bell ALT [Catalytic activity/Vol] 33 U/L Normal 16-63 [facility] Comment on above: Performed By: #### V ANCT #### [facility] [address] [address] [address] Fred Bell AST [Catalytic activity/Vol] 40 U/L Critically high 15-37 [facility] Comment on above: Performed By: #### V ANCT #### [facility] [address] [address] [address] Fred Bell BILI, CONJUGATED 0.2 mg/dL Normal 0.0-0.2 [facility] Comment on above: Performed By: #### V ANCT #### [facility] [address] [address] [address] Fred Bell Bilirubin [Mass/Vol] 0.8 mg/dL Normal 0.2-1.0 [facility] Comment on above: Performed By: #### V ANCT #### [facility] [address] [address] [address] Fred Bell Globulin (S) [Mass/Vol] 4.1 g/dL Normal [facility] Comment on above: Performed By: #### V ANCT #### [facility] [address] [address] [address] Fred Bell Protein [Mass/Vol] 8.3 g/dL Critically high 6.4-8.2 [facility] Comment on above: Performed By: #### V ANCT #### [facility] [address] [address] [address] Fred Bell PROF CHEM 8 (BAS METB)on Anion gap [Moles/Vol] 14.5 mmol/L Normal [facility] Comment on above: Performed By: #### V ANCT #### [facility] [address] [address] [address] Fred Bell Calcium [Mass/Vol] 9.4 mg/dL Normal 8.5-10.1 [facility] Comment on above: Performed By: #### V ANCT #### [facility] [address] [place] [address] Dr. Fred Bell Chloride [Moles/Vol] 104 mmol/L Normal 98-107 [facility] Comment on above: Performed By: #### V ANCT #### [facility] [address] [place] [address] Dr. Fred Bell CO2 [Moles/Vol] 26.6 mmol/L Normal 21.0-32.0 [facility] Comment on above: Performed By: #### V ANCT #### [facility] [address] [place] [address] Dr. Fred Bell Creatinine [Mass/Vol] 1.55 mg/dL Critically high 0.70-1.30 [facility] Comment on above: Performed By: #### V ANCT #### [facility] [address] [place] [address] Dr. Fred Bell EGFR-AF DUTCH 56 mL/min/1.73m2 Critically low >=60 [facility] Comment on above: Performed By: #### V ANCT #### [facility] [address] [place] [address] Dr. Fred Bell EGFR-NON AF DUTCH 47 mL/min/1.73m2 Critically low >=60 [facility] Comment on above: Performed By: #### V ANCT #### [facility] [address] [place] [address] Dr. Fred Bell Glucose [Mass/Vol] 95 mg/dL Normal 74-106 [facility] Comment on above: Performed By: #### V ANCT #### [facility] [address] [place] [address] Dr. Fred Bell Potassium [Moles/Vol] 4.1 mmol/L Normal 3.5-5.1 [facility] Comment on above: Performed By: #### V ANCT #### [facility] [address] [place] [address] Dr. Fred Bell Sodium [Moles/Vol] 141 mmol/L Normal 136-145 [facility] Comment on above: Performed By: #### V ANCT #### [facility] [address] [place] [address] Dr. Fred Bell Urea nitrogen [Mass/Vol] 23.0 mg/dL Critically high 7.0-18.0 [facility] Comment on above: Performed By: #### V ANCT #### [facility] [address] [place] [address] Dr. Fred Bell Urea nitrogen/Creatinine [Mass ratio] 14.8 mg/mg Normal [facility] Comment on above: Performed By: #### V ANCT #### [facility] [address] [place] [address] Dr. Fred Bell TSHon 11-15-2022 TSH 0.726 uIU/mL Normal 0.358-3.740 [facility] Comment on above: Performed By: #### V ANCT #### [facility] [address] [place] [address] Dr. Fred Bell VITAMIN D 25 OHon 11-15-2022 VIT D 25-OH 33.2 ng/mL Normal [facility] Comment on above: Performed By: #### V ANCT #### [facility] [address] [place] [address] Dr. Fred Bell VIT D RANGES SEE BELOW Normal [facility] Comment on above: Result Comment: <20 ng/mL Vit D deficient 20 - <30 ng/mL Vit D insufficient 30 - 100 ng/mL Vit D sufficient >100 ng/mL Potential Toxicity Performed By: #### V ANCT #### [facility] [address] [place] [address] Dr. Fred Bell COVID Quick Testingon 2021 Result Positive Axial Exchange Other ACID FAST SMEAR AND CXon Acid Fast Culture Negative Normal [facility] Comment on above: Result Comment: No a raven fast bacilli isolated after 6 weeks. Performed By: #### B MP #### [facility] [address] [place] [address] Dr. Fred Bell Acid Fast Smear Negative Normal [facility] Comment on above: Performed By: #### B MP #### [facility] [address] [address] [address] Fred Bell AFB Specimen Processing Concentration Normal [facility] Comment on above: Performed By: #### B MP #### [facility] [address] [address] [address] Fred Bell FUNGAL CULTUREon 04-14-2022 Fungus (Mycology) Culture Final report [facility] Comment on above: Performed By: #### B MP #### [facility] [address] [address] [address] Fred Bell Fungus Stain Final report Normal [facility] Comment on above: Performed By: #### B MP #### [facility] [address] [place] [address] Dr. Fred Bell Result 1 Comment Normal [facility] Comment on above: Result Comment: ELIE/ Calcofluor preparation: no fungus observed. Performed By: #### B MP #### [facility] [address] [place] [address] Dr. Fred Bell Result Comment: No y [...] FRANCESCA BUENO Date: 2022-04-05 22:22 Normal [facility] CREATININEon 04-05-2022 Creatinine [Mass/Vol] 1.80 mg/dL Critically high 0.70-1.30 [facility] Comment on above: Performed By: #### P OCGLUC #### [facility] [address] [place] [address] Dr. Fred Bell EGFR-AF DUTCH 48 mL/min/1.73m2 Critically low >=60 [facility] Comment on above: Performed By: #### P OCGLUC #### [facility] [address] [place] [address] Dr. Fred Bell EGFR-NON AF DUTCH 39 mL/min/1.73m2 Critically low >=60 [facility] Comment on above: Performed By: #### P OCGLUC #### [facility] [address] [place] [address] Dr. Fred Bell BUNon 03-30-2022 Urea nitrogen [Mass/Vol] 22.0 mg/dL Critically high 7.0-18.0 [facility] Comment on above: Performed By: #### B MP #### [facility] [address] [place] [address] Dr. Fred Bell CBC AUTO DIFFon 03-30-2022 BASO # 0.2 103/ul Critically high 0.0-0.1 [facility] Comment on above: Performed By: #### C DIFPOC #### [facility] [address] [place] [address] Dr. Fred Bell Basophils/100 WBC (Bld) 1.8 % Normal 0.2-2.0 [facility] Comment on above: Performed By: #### C DIFPOC #### [facility] [address] [place] [address] Dr. Fred Bell EO # 0.6 103/ul Normal 0.0-0.7 [facility] Comment on above: Performed By: #### C DIFPOC #### [facility] [address] [place] [address] Dr. Fred Bell Eosinophils/100 WBC (Bld) 4.8 % Normal 0.9-7.0 [facility] Comment on above: Performed By: #### C DIFPOC #### [facility] [address] [place] [address] Dr. Fred Bell Erythrocyte distribution width (RBC) [Ratio] 17.7 % Critically high 11.0-15.0 [facility] Comment on above: Performed By: #### C DIFPOC #### [facility] [address] [place] [address] Dr. Fred Bell Hematocrit (Bld) [Volume fraction] 27.0 % Critically low 42.0-54.0 [facility] Comment on above: Performed By: #### C DIFPOC #### [facility] [address] [place] [address] Dr. Fred Bell Hemoglobin (Bld) [Mass/Vol] 8.4 g/dL Critically low 14.0-18.0 [facility] Comment on above: Performed By: #### C DIFPOC #### [facility] [address] [place] [address] Dr. Fred Bell IG # 0.04 10e3/ul Critically high 0.00-0.03 [facility] Comment on above: Performed By: #### C DIFPOC #### [facility] [address] [place] [address] Dr. Fred Bell IG % 0.3 % Normal 0.0-0.5 [facility] Comment on above: Performed By: #### C DIFPOC #### [facility] [address] [place] [address] Dr. Fred Bell LYMPH # 2.1 103/ul Normal 1.2-3.8 [facility] Comment on above: Performed By: #### C DIFPOC #### [facility] [address] [place] [address] Dr. Fred Bell Lymphocytes/100 WBC (Bld) 17.2 % Critically low 20.5-60.0 [facility] Comment on above: Performed By: #### C DIFPOC #### [facility] [address] [place] [address] Dr. Fred Bell MANUAL DIFF REQ NO Normal [facility] Comment on above: Performed By: #### C DIFPOC #### [facility] [address] [place] [address] Dr. Fred Bell MCH (RBC) [Entitic mass] 27.9 pg Normal 25.9-34.0 [facility] Comment on above: Performed By: #### C DIFPOC #### [facility] [address] [place] [address] Dr. Fred Bell MCHC (RBC) [Mass/Vol] 31.1 g/dL Normal 29.9-35.2 [facility] Comment on above: Performed By: #### C DIFPOC #### [facility] [address] [place] [address] Dr. Fred Bell MCV (RBC) [Entitic vol] 89.7 fL Normal 80.0-94.0 [facility] Comment on above: Performed By: #### C DIFPOC #### [facility] [address] [place] [address] Dr. Fred Bell MONO # 0.6 103/ul Normal 0.3-0.8 [facility] Comment on above: Performed By: #### C DIFPOC #### [facility] [address] [place] [address] Dr. Fred Bell Monocytes/100 WBC (Bld) 5.1 % Normal 1.7-12.0 [facility] Comment on above: Performed By: #### C DIFPOC #### [facility] [address] [place] [address] Dr. Fred Bell NEUT # 8.5 103/ul Critically high 1.4-6.5 [facility] Comment on above: Performed By: #### C DIFPOC #### [facility] [address] [place] [address] Dr. Fred Bell Neutrophils/100 WBC (Bld) 70.8 % Normal 43.0-75.0 [facility] Comment on above: Performed By: #### C DIFPOC #### [facility] [address] [place] [address] Dr. Fred Bell Platelet mean volume (Bld) [Entitic vol] 9.1 fL Critically low 9.5-13.5 [facility] Comment on above: Performed By: #### C DIFPOC #### [facility] [address] [place] [address] Dr. Fred Bell PLT 599 103/ul Critically high 150-450 [facility] Comment on above: Performed By: #### C DIFPOC #### [facility] [address] [place] [address] Dr. Fred Bell RBC 3.01 106/ul Critically low 4.70-6.10 [facility] Comment on above: Performed By: #### C DIFPOC #### [facility] [address] [place] [address] Dr. Fred Bell WBC 11.9 103/ul Critically high 4.0-11.0 [facility] Comment on above: Performed By: #### C DIFPOC #### [facility] [address] [place] [address] Dr. Fred Bell CREATININEon 03-30-2022 Creatinine [Mass/Vol] 1.89 mg/dL Critically high 0.70-1.30 [facility] Comment on above: Performed By: #### B MP #### [facility] [address] [place] [address] Dr. Fred Bell EGFR-AF DUTCH 45 mL/min/1.73m2 Critically low >=60 [facility] Comment on above: Performed By: #### B MP #### [facility] [address] [place] [address] Dr. Fred Bell EGFR-NON AF DUTCH 37 mL/min/1.73m2 Critically low >=60 [facility] Comment on above: Performed By: #### B MP #### [facility] [address] [address] [address] Fred Bell VANCOMYCIN TROUGHon 03-30-20 22 VANCOMYCIN TROUGH 13.5 ug/ml Normal 5.0-20.0 [facility] Comment on above: Performed By: #### A 1C #### [facility] [address] [address] [address] Fred Bell CREATININEon 03-25-2022 Creatinine [Mass/Vol] 1.88 mg/dL Critically high 0.70-1.30 [facility] Comment on above: Performed By: #### P OCGLUC #### [facility] [address] [place] [address] Dr. Fred Bell EGFR-AF DUTCH 45 mL/min/1.73m2 Critically low >=60 [facility] Comment on above: Performed By: #### P OCGLUC #### [facility] [address] [place] [address] Dr. Fred Bell EGFR-NON AF DUTCH 37 mL/min/1.73m2 Critically low >=60 [facility] Comment on above: Performed By: #### P OCGLUC #### [facility] [address] [place] [address] Dr. Fred Bell VANCOMYCIN RANDOMon 03-25-20 22 VANCOMYCIN RANDOM 17.6 ug/ml Normal [facility] Comment on above: Performed By: #### V ANCT #### [facility] [address] [place] [address] Dr. Fred Bell CBC AUTO DIFFon 03-23-2022 BASO # 0.2 103/ul Critically high 0.0-0.1 [facility] Comment on above: Performed By: #### P OCGLUC #### [facility] [address] [place] [address] Dr. Fred Bell Basophils/100 WBC (Bld) 0.8 % Normal 0.2-2.0 [facility] Comment on above: Performed By: #### P OCGLUC #### [facility] [address] [address] [address] Fred Bell EO # 0.6 103/ul Normal 0.0-0.7 [facility] Comment on above: Performed By: #### P OCGLUC #### [facility] [address] [address] [address] Fred Bell Eosinophils/100 WBC (Bld) 3.0 % Normal 0.9-7.0 [facility] Comment on above: Performed By: #### P OCGLUC #### [facility] [address] [address] [address] Fred Bell Erythrocyte distribution width (RBC) [Ratio] 16.5 % Critically high 11.0-15.0 [facility] Comment on above: Performed By: #### P OCGLUC #### [facility] [address] [place] [address] Dr. Fred Bell Hematocrit (Bld) [Volume fraction] 26.9 % Critically low 42.0-54.0 [facility] Comment on above: Performed By: #### P OCGLUC #### [facility] [address] [place] [address] Dr. Fred Bell Hemoglobin (Bld) [Mass/Vol] 8.0 g/dL Critically low 14.0-18.0 [facility] Comment on above: Performed By: #### P OCGLUC #### [facility] [address] [address] [address] Fred Bell IG # 0.33 10e3/ul Critically high 0.00-0.03 [facility] Comment on above: Performed By: #### P OCGLUC #### [facility] [address] [address] [address] Fred Bell IG % 1.8 % Critically high 0.0-0.5 [facility] Comment on above: Performed By: #### P OCGLUC #### [facility] [address] [place] [address] Dr. Fred Bell LYMPH # 2.1 103/ul Normal 1.2-3.8 [facility] Comment on above: Performed By: #### P OCGLUC #### [facility] [address] [address] [address] Fred Bell Lymphocytes/100 WBC (Bld) 11.1 % Critically low 20.5-60.0 [facility] Comment on above: Performed By: #### P OCGLUC #### [facility] [address] [address] [address] Fred Bell MANUAL DIFF REQ NO Normal [facility] Comment on above: Performed By: #### P OCGLUC #### [facility] [address] [address] [address] Fred Bell MCH (RBC) [Entitic mass] 26.8 pg Normal 25.9-34.0 [facility] Comment on above: Performed By: #### P OCGLUC #### [facility] [address] [place] [address] Dr. Fred Bell MCHC (RBC) [Mass/Vol] 29.7 g/dL Critically low 29.9-35.2 [facility] Comment on above: Performed By: #### P OCGLUC #### [facility] [address] [place] [address] Dr. Fred Bell MCV (RBC) [Entitic vol] 90.0 fL Normal 80.0-94.0 [facility] Comment on above: Performed By: #### P OCGLUC #### [facility] [address] [place] [address] Dr. Fred Bell MONO # 1.0 103/ul Critically high 0.3-0.8 [facility] Comment on above: Performed By: #### P OCGLUC #### [facility] [address] [place] [address] Dr. Fred Bell Monocytes/100 WBC (Bld) 5.2 % Normal 1.7-12.0 [facility] Comment on above: Performed By: #### P OCGLUC #### [facility] [address] [place] [address] Dr. Fred Bell NEUT # 14.5 103/ul Critically high 1.4-6.5 [facility] Comment on above: Performed By: #### P OCGLUC #### [facility] [address] [address] [address] Fred Bell Neutrophils/100 WBC (Bld) 78.1 % Critically high 43.0-75.0 [facility] Comment on above: Performed By: #### P OCGLUC #### [facility] [address] [address] [address] Fred Bell Platelet mean volume (Bld) [Entitic vol] 8.9 fL Critically low 9.5-13.5 [facility] Comment on above: Performed By: #### P OCGLUC #### [facility] [address] [address] [address] Fred Bell PLT 705 103/ul Critically high 150-450 [facility] Comment on above: Performed By: #### P OCGLUC #### [facility] [address] [address] [address] Fred Bell RBC 2.99 106/ul Critically low 4.70-6.10 [facility] Comment on above: Performed By: #### P OCGLUC #### [facility] [address] [address] [address] Fred Bell WBC 18.5 103/ul Critically high 4.0-11.0 [facility] Comment on above: Performed By: #### P OCGLUC #### [facility] [address] [address] [address] Fred Bell CREATININEon 03-23-2022 Creatinine [Mass/Vol] 1.88 mg/dL Critically high 0.70-1.30 [facility] Comment on above: Performed By: #### C DIFPOC #### [facility] [address] [address] [address] Fred Bell EGFR-AF DUTCH 45 mL/min/1.73m2 Critically low >=60 [facility] Comment on above: Performed By: #### C DIFPOC #### [facility] [address] [address] [address] Fred Bell EGFR-NON AF DUTCH 37 mL/min/1.73m2 Critically low >=60 [facility] Comment on above: Performed By: #### C DIFPOC #### [facility] [address] [place] [address] Dr. Fred Bell VANCOMYCIN TROUGHon 03-23-20 VANCOMYCIN TROUGH 25.7 ug/ml Critically high 5.0-20.0 [facility] Comment on above: Performed By: #### V ANCT #### [facility] [address] [place] [address] Dr. Fred Bell CBC AUTO DIFFon 03-19-2022 BASO # 0.1 103/ul Normal 0.0-0.1 [facility] Comment on above: Performed By: #### C BC #### [facility] [address] [place] [address] Dr. Fred Bell Basophils/100 WBC (Bld) 0.3 % Normal 0.2-2.0 [facility] Comment on above: Performed By: #### C BC #### [facility] [address] [place] [address] Dr. Fred Bell EO # 0.4 103/ul Normal 0.0-0.7 [facility] Comment on above: Performed By: #### C BC #### [facility] [address] [place] [address] Dr. Fred Bell Eosinophils/100 WBC (Bld) 1.7 % Normal 0.9-7.0 [facility] Comment on above: Performed By: #### C BC #### [facility] [address] [place] [address] Dr. Fred Bell Erythrocyte distribution width (RBC) [Ratio] 16.4 % Critically high 11.0-15.0 [facility] Comment on above: Performed By: #### C BC #### [facility] [address] [place] [address] Dr. Fred Bell Hematocrit (Bld) [Volume fraction] 34.0 % Critically low 42.0-54.0 [facility] Comment on above: Performed By: #### C BC #### [facility] [address] [place] [address] Dr. Fred Bell Hemoglobin (Bld) [Mass/Vol] 10.1 g/dL Critically low 14.0-18.0 [facility] Comment on above: Performed By: #### C BC #### [facility] [address] [place] [address] Dr. Fred Bell IG # 0.17 10e3/ul Critically high 0.00-0.03 [facility] Comment on above: Performed By: #### C BC #### [facility] [address] [place] [address] Dr. Fred Bell IG % 0.8 % Critically high 0.0-0.5 [facility] Comment on above: Performed By: #### C BC #### [facility] [address] [place] [address] Dr. Fred Bell LYMPH # 2.0 103/ul Normal 1.2-3.8 [facility] Comment on above: Performed By: #### C BC #### [facility] [address] [place] [address] Dr. Fred Bell Lymphocytes/100 WBC (Bld) 8.9 % Critically low 20.5-60.0 [facility] Comment on above: Performed By: #### C BC #### [facility] [address] [place] [address] Dr. Fred Bell MANUAL DIFF REQ NO Normal [facility] Comment on above: Performed By: #### C BC #### [facility] [address] [place] [address] Dr. Fred Bell MCH (RBC) [Entitic mass] 26.8 pg Normal 25.9-34.0 [facility] Comment on above: Performed By: #### C BC #### [facility] [address] [place] [address] Dr. Fred Bell MCHC (RBC) [Mass/Vol] 29.7 g/dL Critically low 29.9-35.2 [facility] Comment on above: Performed By: #### C BC #### [facility] [address] [place] [address] Dr. Fred Bell MCV (RBC) [Entitic vol] 90.2 fL Normal 80.0-94.0 [facility] Comment on above: Performed By: #### C BC #### [facility] [address] [address] [address] Fred Bell MONO # 1.5 103/ul Critically high 0.3-0.8 [facility] Comment on above: Performed By: #### C BC #### [facility] [address] [address] [address] Fred Bell Monocytes/100 WBC (Bld) 6.7 % Normal 1.7-12.0 [facility] Comment on above: Performed By: #### C BC #### [facility] [address] [place] [address] Dr. Fred Bell NEUT # 18.0 103/ul Critically high 1.4-6.5 [facility] Comment on above: Performed By: #### C BC #### [facility] [address] [place] [address] Dr. Fred Bell Neutrophils/100 WBC (Bld) 81.6 % Critically high 43.0-75.0 [facility] Comment on above: Performed By: #### C BC #### [facility] [address] [place] [address] Dr. Fred Bell Platelet mean volume (Bld) [Entitic vol] 8.7 fL Critically low 9.5-13.5 [facility] Comment on above: Performed By: #### C BC #### [facility] [address] [address] [address] Fred Bell PLT 552 103/ul Critically high 150-450 [facility] Comment on above: Performed By: #### C BC #### [facility] [address] [place] [address] Dr. rFed Bell RBC 3.77 106/ul Critically low 4.70-6.10 [facility] Comment on above: Performed By: #### C BC #### [facility] [address] [place] [address] Dr. Fred Bell WBC 22.1 103/ul Critically high 4.0-11.0 [facility] Comment on above: Performed By: #### C BC #### [facility] [address] [place] [address] Dr. Fred Bell LOWER RESPIRATORY CULTUREon 03-19-2022 Lower Respiratory Culture Final report Normal [facility] Comment on above: Performed By: #### A 1C #### [facility] [address] [place] [address] Dr. Fred Bell Result 1 Comment Normal [facility] Comment on above: Result Comment: Rout ine respiratory kathya Performed By: #### A 1C #### [facility] [address] [place] [address] Dr. Fred Bell POINT OF CARE GLUCOSEon 02-25 Glucose [Mass/Vol] 114 mg/dL Critically high 74-106 [facility] Comment on above: Performed By: #### C BC #### [facility] [address] [place] [address] Dr. Fred Bell PROF CHEM 8 (BAS METB)on Anion gap [Moles/Vol] 14.5 mmol/L Normal [facility] Comment on above: Performed By: #### B MP #### [facility] [address] [place] [address] Dr. Fred Bell Calcium [Mass/Vol] 8.8 mg/dL Normal 8.5-10.1 [facility] Comment on above: Performed By: #### B MP #### [facility] [address] [place] [address] Dr. Fred Bell Chloride [Moles/Vol] 108 mmol/L Critically high 98-107 [facility] Comment on above: Performed By: #### B MP #### [facility] [address] [place] [address] Dr. Fred Bell CO2 [Moles/Vol] 24.4 mmol/L Normal 21.0-32.0 [facility] Comment on above: Performed By: #### B MP #### [facility] [address] [place] [address] Dr. Fred Bell Creatinine [Mass/Vol] 1.38 mg/dL Critically high 0.70-1.30 [facility] Comment on above: Performed By: #### B MP #### [facility] [address] [address] [address] Fred Bell EGFR-AF DUTCH >60 Normal >=60 [facility] Comment on above: Performed By: #### B MP #### [facility] [address] [address] [address] Fred Bell EGFR-NON AF DUTCH 53 mL/min/1.73m2 Critically low >=60 [facility] Comment on above: Performed By: #### B MP #### [facility] [address] [address] [address] Fred Bell Glucose [Mass/Vol] 82 mg/dL Normal 74-106 [facility] Comment on above: Performed By: #### B MP #### [facility] [address] [address] [address] Fred Bell Potassium [Moles/Vol] 3.9 mmol/L Normal 3.5-5.1 [facility] Comment on above: Performed By: #### B MP #### [facility] [address] [address] [address] Fred Bell Sodium [Moles/Vol] 143 mmol/L Normal 136-145 [facility] Comment on above: Performed By: #### B MP #### [facility] [address] [address] [address] Fred Bell Urea nitrogen [Mass/Vol] 11.0 mg/dL Normal 7.0-18.0 [facility] Comment on above: Performed By: #### B MP #### [facility] [address] [address] [address] Fred Bell Urea nitrogen/Creatinine [Mass ratio] 8.0 mg/mg Normal [facility] Comment on above: Performed By: #### B MP #### [facility] [address] [place] [address] Dr. Fred Bell VANCOMYCIN TROUGHon 03-19-20 22 VANCOMYCIN TROUGH 22.8 ug/ml Critically high 5.0-20.0 [facility] Comment on above: Performed By: #### A 1C #### [facility] [address] [place] [address] Dr. Fred Vega. DIFF PCRon 03-18-2022 C. DIFFICILE PCR Negative Normal NEGATIVE [facility] Comment on above: Performed By: #### C DIFPOC #### [facility] [address] [place] [address] Dr. Fred Bell CBC W MANUAL DIFFon 03-18-20 ATYPICAL LYMPH # Normal [facility] Comment on above: Performed By: #### C BC #### [facility] [address] [place] [address] Dr. Fred Bell ATYPICAL LYMPH % Normal [facility] Comment on above: Performed By: #### C BC #### [facility] [address] [place] [address] Dr. Fred Bell BAND # Normal 0.0-0.3 [facility] Comment on above: Performed By: #### C BC #### [facility] [address] [place] [address] Dr. Fred Bell BAND % Normal 0-5 [facility] Comment on above: Performed By: #### C BC #### [facility] [address] [place] [address] Dr. Fred Bell BASOM # 0.00 103/ul Normal 0.00-0.10 [facility] Comment on above: Performed By: #### C BC #### [facility] [address] [place] [address] Dr. Fred Bell BASOM % 0.0 % Critically low 0.2-2.0 [facility] Comment on above: Performed By: #### C BC #### [facility] [address] [place] [address] Dr. Fred Bell BLAST # Normal [facility] Comment on above: Performed By: #### C BC #### [facility] [address] [place] [address] Dr. Fred Bell BLAST % Normal [facility] Comment on above: Performed By: #### C BC #### [facility] [address] [address] [address] Fred Bell CORRECTED WBC Normal 4.0-11.[address] [facility] Comment on above: Performed By: #### C BC #### [facility] [address] [place] [address] Dr. Fred Bell EOS # 0.00 103/ul Normal 0.00-0.70 [facility] Comment on above: Performed By: #### C BC #### [facility] [address] [place] [address] Dr. Fred Bell EOS% 0.0 % Critically low 0.9-7.0 [facility] Comment on above: Performed By: #### C BC #### [facility] [address] [place] [address] Dr. Fred Bell HCT 28.1 % Critically low 42.0-54.0 [facility] Comment on above: Performed By: #### C BC #### [facility] [address] [place] [address] Dr. Fred Bell HGB 8.4 g/dl Critically low 14.0-18.0 [facility] Comment on above: Performed By: #### C BC #### [facility] [address] [place] [address] Dr. Fred Bell HYPERSEG NEUT 2+ Normal [facility] Comment on above: Performed By: #### C BC #### [facility] [address] [place] [address] Dr. Fred Bell HYPOCHROMASIA 2+ Normal [facility] Comment on above: Performed By: #### C BC #### [facility] [address] [place] [address] Dr. Fred Bell LYMPHM # 0.77 103/ul Critically low 1.20-3.80 [facility] Comment on above: Performed By: #### C BC #### [facility] [address] [place] [address] Dr. Fred Bell LYMPHM% 3.0 % Critically low 20.5-60.[address] [facility] Comment on above: Performed By: #### C BC #### [facility] [address] [place] [address] Dr. Fred Bell MCH 26.8 pg Normal 25.9-34.0 [facility] Comment on above: Performed By: #### C BC #### [facility] [address] [place] [address] Dr. Fred Bell MCHC 29.9 g/dl Normal 29.9-35.2 [facility] Comment on above: Performed By: #### C BC #### [facility] [address] [place] [address] Dr. Fred Bell MCV 89.5 fL Normal 80.0-94.0 [facility] Comment on above: Performed By: #### C BC #### [facility] [address] [place] [address] Dr. Fred Bell METAMYELOCYTE # Normal [facility] Comment on above: Performed By: #### C BC #### [facility] [address] [place] [address] Dr. Fred Bell METAMYELOCYTE % Normal [facility] Comment on above: Performed By: #### C BC #### [facility] [address] [place] [address] Dr. Fred Bell MONOM# 1.02 103/ul Critically high 0.30-0.80 [facility] Comment on above: Performed By: #### C BC #### [facility] [address] [place] [address] Dr. Fred Bell MONOM% 4.0 % Normal 1.7-12.0 [facility] Comment on above: Performed By: #### C BC #### [facility] [address] [place] [address] Dr. Fred Bell MPV 8.6 fL Critically low 9.5-13.5 [facility] Comment on above: Performed By: #### C BC #### [facility] [address] [place] [address] Dr. Fred Bell MYELOCYTE # Normal [facility] Comment on above: Performed By: #### C BC #### [facility] [address] [address] [address] Fred Bell MYELOCYTE % Normal [facility] Comment on above: Performed By: #### C BC #### [facility] [address] [address] [address] Fred Bell NRBC Normal [facility] Comment on above: Performed By: #### C BC #### [facility] [address] [address] [address] Fred Bell PLT 530 103/ul Critically high 150-450 [facility] Comment on above: Performed By: #### C BC #### [facility] [address] [address] [address] Fred Bell RBC 3.14 106/ul Critically low 4.70-6.10 [facility] Comment on above: Performed By: #### C BC #### [facility] [address] [address] [address] Fred Bell RDW 16.5 % Critically high 11.0-15.0 [facility] Comment on above: Performed By: #### C BC #### [facility] [address] [address] [address] Fred Bell SEG # 23.71 103/ul Critically high 1.40-6.50 [facility] Comment on above: Performed By: #### C BC #### [facility] [address] [address] [address] Fred Bell SEG % 93.0 % Critically high 43.0-75.0 [facility] Comment on above: Performed By: #### C BC #### [facility] [address] [address] [address] Fred Bell WBC 25.5 103/ul Critically high 4.0-11.0 [facility] Comment on above: Performed By: #### C BC #### [facility] [address] [address] [address] CHEST WO CONon [...] by: DEEDEE LIZARRAGA Date: 2022-03-18 13:18 Normal [facility] POINT OF CARE GLUCOSEon - Glucose [Mass/Vol] 96 mg/dL Normal 74-106 [facility] Comment on above: Performed By: #### A 1C #### [facility] [address] [place] [address] Dr. Fred Bell Glucose [Mass/Vol] 82 mg/dL Normal 74-106 [facility] Comment on above: Performed By: #### B MP #### [facility] [address] [place] [address] Dr. Fred Bell Glucose [Mass/Vol] 119 mg/dL Critically high 74-106 [facility] Comment on above: Performed By: #### P OCGLUC #### [facility] [address] [place] [address] Dr. Fred Bell Glucose [Mass/Vol] 110 mg/dL Critically high 74-106 [facility] Comment on above: Performed By: #### P OCGLUC #### [facility] [address] [place] [address] Dr. Fred Bell PROF CHEM 8 (BAS METB)on Anion gap [Moles/Vol] 13.8 mmol/L Normal [facility] Comment on above: Performed By: #### V ANCT #### [facility] [address] [place] [address] Dr. Fred Bell Calcium [Mass/Vol] 8.3 mg/dL Critically low 8.5-10.1 [facility] Comment on above: Performed By: #### V ANCT #### [facility] [address] [address] [address] Fred Bell Chloride [Moles/Vol] 110 mmol/L Critically high 98-107 [facility] Comment on above: Performed By: #### V ANCT #### [facility] [address] [place] [address] Dr. Fred Bell CO2 [Moles/Vol] 22.0 mmol/L Normal 21.0-32.0 [facility] Comment on above: Performed By: #### V ANCT #### [facility] [address] [place] [address] Dr. Fred Bell Creatinine [Mass/Vol] 1.36 mg/dL Critically high 0.70-1.30 [facility] Comment on above: Performed By: #### V ANCT #### [facility] [address] [place] [address] Dr. Fred Bell EGFR-AF DUTCH >60 Normal >=60 [facility] Comment on above: Performed By: #### V ANCT #### [facility] [address] [address] [address] Fred Bell EGFR-NON AF DUTCH 54 mL/min/1.73m2 Critically low >=60 [facility] Comment on above: Performed By: #### V ANCT #### [facility] [address] [address] [address] Fred Bell Glucose [Mass/Vol] 173 mg/dL Critically high 74-106 [facility] Comment on above: Performed By: #### V ANCT #### [facility] [address] [address] [address] Fred Bell Potassium [Moles/Vol] 3.8 mmol/L Normal 3.5-5.1 [facility] Comment on above: Performed By: #### V ANCT #### [facility] [address] [place] [address] Dr. Fred Bell Sodium [Moles/Vol] 142 mmol/L Normal 136-145 [facility] Comment on above: Performed By: #### V ANCT #### [facility] [address] [place] [address] Dr. Fred Bell Urea nitrogen [Mass/Vol] 13.0 mg/dL Normal 7.0-18.0 [facility] Comment on above: Performed By: #### V ANCT #### [facility] [address] [place] [address] Dr. Fred Bell Urea nitrogen/Creatinine [Mass ratio] 9.6 mg/mg Normal [facility] Comment on above: Performed By: #### V ANCT #### [facility] [address] [place] [address] Dr. Fred Bell SPUTUM CULTUREon 03-18-2022 Epithelial cells LM Ql (Urine sed) None seen Normal [facility] Comment on above: Performed By: #### P OCGLUC #### [facility] [address] [place] [address] Dr. Fred Bell Gram Stain Evaluation Comment Normal [facility] Comment on above: Result Comment: This specimen is of good quality and is acceptable for routine bacterial culture. Performed By: #### P OCGLUC #### [facility] [address] [place] [address] Dr. Fred Bell Lower Respiratory Culture Final report Normal [facility] Comment on above: Performed By: #### P OCGLUC #### [facility] [address] [place] [address] Dr. Fred Bell Result 1 TNP Normal The [facility] Comment on above: Result Comment: Test not performed Performed By: #### P OCGLUC #### [facility] [address] [place] [address] Dr. Fred Bell Result 1 Comment Normal [facility] Comment on above: Result Comment: Rout ine respiratory kathya Performed By: #### P OCGLUC #### [facility] [address] [place] [address] Dr. Fred Bell Result 2 Normal [facility] Comment on above: Performed By: #### P OCGLUC #### [facility] [address] [place] [address] Dr. Fred Bell Result 3 Normal [facility] Comment on above: Performed By: #### P OCGLUC #### [facility] [address] [place] [address] Dr. Fred Bell Result 4 Normal [facility] Comment on above: Performed By: #### P OCGLUC #### [facility] [address] [place] [address] Dr. Fred Bell White Blood Cells None seen Normal [facility] Comment on above: Performed By: #### P OCGLUC #### [facility] [address] [place] [address] Dr. Fred Bell XR CHEST 1 Von [...] BRANDON PRADO Date: 2022-03-18 08:28 Normal [facility] CBC AUTO DIFFon 03-17-2022 BASO # 0.0 103/ul Normal 0.0-0.1 [facility] Comment on above: Performed By: #### A 1C #### [facility] [address] [place] [address] Dr. Fred Bell Basophils/100 WBC (Bld) 0.1 % Critically low 0.2-2.0 [facility] Comment on above: Performed By: #### A 1C #### [facility] [address] [place] [address] Dr. Fred Bell EO # 0.0 103/ul Normal 0.0-0.7 [facility] Comment on above: Performed By: #### A 1C #### [facility] [address] [place] [address] Dr. Fred Bell Eosinophils/100 WBC (Bld) 0.0 % Critically low 0.9-7.0 [facility] Comment on above: Performed By: #### A 1C #### [facility] [address] [place] [address] Dr. Fred Bell Erythrocyte distribution width (RBC) [Ratio] 16.3 % Critically high 11.0-15.0 [facility] Comment on above: Performed By: #### A 1C #### [facility] [address] [place] [address] Dr. Fred Bell Hematocrit (Bld) [Volume fraction] 29.8 % Critically low 42.0-54.0 [facility] Comment on above: Performed By: #### A 1C #### [facility] [address] [place] [address] Dr. Fred Bell Hemoglobin (Bld) [Mass/Vol] 9.1 g/dL Critically low 14.0-18.0 [facility] Comment on above: Performed By: #### A 1C #### [facility] [address] [place] [address] Dr. Fred Bell IG # 0.16 10e3/ul Critically high 0.00-0.03 [facility] Comment on above: Performed By: #### A 1C #### [facility] [address] [place] [address] Dr. Fred Bell IG % 0.8 % Critically high 0.0-0.5 [facility] Comment on above: Performed By: #### A 1C #### [facility] [address] [place] [address] Dr. Fred Bell LYMPH # 0.8 103/ul Critically low 1.2-3.8 [facility] Comment on above: Performed By: #### A 1C #### [facility] [address] [place] [address] Dr. rFed Bell Lymphocytes/100 WBC (Bld) 4.1 % Critically low 20.5-60.0 [facility] Comment on above: Performed By: #### A 1C #### [facility] [address] [place] [address] Dr. Fred Bell MANUAL DIFF REQ NO Normal [facility] Comment on above: Performed By: #### A 1C #### [facility] [address] [place] [address] Dr. Fred Bell MCH (RBC) [Entitic mass] 27.3 pg Normal 25.9-34.0 [facility] Comment on above: Performed By: #### A 1C #### [facility] [address] [place] [address] Dr. Fred Bell MCHC (RBC) [Mass/Vol] 30.5 g/dL Normal 29.9-35.2 [facility] Comment on above: Performed By: #### A 1C #### [facility] [address] [place] [address] Dr. Fred Bell MCV (RBC) [Entitic vol] 89.5 fL Normal 80.0-94.0 [facility] Comment on above: Performed By: #### A 1C #### [facility] [address] [place] [address] Dr. Fred Bell MONO # 0.3 103/ul Normal 0.3-0.8 [facility] Comment on above: Performed By: #### A 1C #### [facility] [address] [place] [address] Dr. Fred Bell Monocytes/100 WBC (Bld) 1.5 % Critically low 1.7-12.0 [facility] Comment on above: Performed By: #### A 1C #### [facility] [address] [place] [address] Dr. Fred Bell NEUT # 18.5 103/ul Critically high 1.4-6.5 [facility] Comment on above: Performed By: #### A 1C #### [facility] [address] [place] [address] Dr. Fred Bell Neutrophils/100 WBC (Bld) 93.5 % Critically high 43.0-75.0 [facility] Comment on above: Performed By: #### A 1C #### [facility] [address] [place] [address] Dr. Fred Bell Platelet mean volume (Bld) [Entitic vol] 8.6 fL Critically low 9.5-13.5 [facility] Comment on above: Performed By: #### A 1C #### [facility] [address] [address] [address] Fred Bell PLT 445 103/ul Normal 150-450 [facility] Comment on above: Performed By: #### A 1C #### [facility] [address] [address] [address] Fred Bell RBC 3.33 106/ul Critically low 4.70-6.10 [facility] Comment on above: Performed By: #### A 1C #### [facility] [address] [place] [address] Dr. Fred Bell WBC 19.8 103/ul Critically high 4.0-11.0 [facility] Comment on above: Performed By: #### A 1C #### [facility] [address] [place] [address] Dr. Fred Bell POINT OF CARE GLUCOSEon 02-25 Glucose [Mass/Vol] 153 mg/dL Critically high 74-106 [facility] Comment on above: Performed By: #### P OCGLUC #### [facility] [address] [place] [address] Dr. Fred Bell Glucose [Mass/Vol] 169 mg/dL Critically high 74-106 [facility] Comment on above: Performed By: #### P OCGLUC #### [facility] [address] [place] [address] Dr. Fred Bell Glucose [Mass/Vol] 252 mg/dL Critically high 74-106 [facility] Comment on above: Performed By: #### C DIFPOC #### [facility] [address] [place] [address] Dr. Fred Bell PROF CHEM 8 (BAS METB)on Anion gap [Moles/Vol] 15.1 mmol/L Normal [facility] Comment on above: Performed By: #### C DIFPOC #### [facility] [address] [place] [address] Dr. Fred Bell Calcium [Mass/Vol] 8.8 mg/dL Normal 8.5-10.1 [facility] Comment on above: Performed By: #### C DIFPOC #### [facility] [address] [place] [address] Dr. Fred Bell Chloride [Moles/Vol] 107 mmol/L Normal 98-107 [facility] Comment on above: Performed By: #### C DIFPOC #### [facility] [address] [place] [address] Dr. Fred Bell CO2 [Moles/Vol] 22.1 mmol/L Normal 21.0-32.0 [facility] Comment on above: Performed By: #### C DIFPOC #### [facility] [address] [place] [address] Dr. Fred Bell Creatinine [Mass/Vol] 1.20 mg/dL Normal 0.70-1.30 [facility] Comment on above: Performed By: #### C DIFPOC #### [facility] [address] [place] [address] Dr. Fred Bell EGFR-AF DUTCH >60 Normal >=60 [facility] Comment on above: Performed By: #### C DIFPOC #### [facility] [address] [place] [address] Dr. Fred Bell EGFR-NON AF DUTCH >60 Normal >=60 [facility] Comment on above: Performed By: #### C DIFPOC #### [facility] [address] [place] [address] Dr. Fred Bell Glucose [Mass/Vol] 181 mg/dL Critically high 74-106 [facility] Comment on above: Performed By: #### C DIFPOC #### [facility] [address] [place] [address] Dr. Fred Bell Potassium [Moles/Vol] 4.2 mmol/L Normal 3.5-5.1 [facility] Comment on above: Performed By: #### C DIFPOC #### [facility] [address] [address] [address] Fred Bell Sodium [Moles/Vol] 140 mmol/L Normal 136-145 [facility] Comment on above: Performed By: #### C DIFPOC #### [facility] [address] [address] [address] Fred Bell Urea nitrogen [Mass/Vol] 12.0 mg/dL Normal 7.0-18.0 [facility] Comment on above: Performed By: #### C DIFPOC #### [facility] [address] [place] [address] Dr. Fred Bell Urea nitrogen/Creatinine [Mass ratio] 10.0 mg/mg Normal [facility] Comment on above: Performed By: #### C DIFPOC #### [facility] [address] [place] [address] Dr. Fred Bell VANCOMYCIN TROUGHon 03-17-20 VANCOMYCIN TROUGH 16.1 ug/ml Normal 5.0-20.0 [facility] Comment on above: Performed By: #### V ANCT #### [facility] [address] [place] [address] Dr. Fred Bell XR CHEST 2 Von [...] by: AARTI LAYTON Date: 2022-03-17 06:29 Normal [facility] CBC W MANUAL DIFFon 03-16-20 ATYPICAL LYMPH # Normal [facility] Comment on above: Performed By: #### B MP #### [facility] [address] [place] [address] Dr. Fred Bell ATYPICAL LYMPH % Normal [facility] Comment on above: Performed By: #### B MP #### [facility] [address] [place] [address] Dr. Fred Bell BAND # Normal 0.0-0.3 [facility] Comment on above: Performed By: #### B MP #### [facility] [address] [place] [address] Dr. Fred Bell BAND % Normal 0-5 [facility] Comment on above: Performed By: #### B MP #### [facility] [address] [place] [address] Dr. Fred Bell BASOM # 0.00 103/ul Normal 0.00-0.10 [facility] Comment on above: Performed By: #### B MP #### [facility] [address] [place] [address] Dr. Fred Bell BASOM % 0.0 % Critically low 0.2-2.0 [facility] Comment on above: Performed By: #### B MP #### [facility] [address] [place] [address] Dr. Frde Bell BLAST # Normal [facility] Comment on above: Performed By: #### B MP #### [facility] [address] [place] [address] Dr. Fred Bell BLAST % Normal [facility] Comment on above: Performed By: #### B MP #### [facility] [address] [place] [address] Dr. Fred Bell CORRECTED WBC Normal 4.0-11.[address] [facility] Comment on above: Performed By: #### B MP #### [facility] [address] [place] [address] Dr. Fred Bell EOS # 0.21 103/ul Normal 0.00-0.70 [facility] Comment on above: Performed By: #### B MP #### [facility] [address] [place] [address] Dr. Fred Bell EOS% 1.0 % Normal 0.9-7.0 [facility] Comment on above: Performed By: #### B MP #### [facility] [address] [place] [address] Dr. Fred Bell HCT 29.4 % Critically low 42.0-54.0 [facility] Comment on above: Performed By: #### B MP #### [facility] [address] [address] [address] Fred Bell HGB 8.9 g/dl Critically low 14.0-18.0 [facility] Comment on above: Performed By: #### B MP #### [facility] [address] [place] [address] Dr. Fred Bell HYPERSEG NEUT 2+ Normal [facility] Comment on above: Performed By: #### B MP #### [facility] [address] [place] [address] Dr. Fred Bell LYMPHM # 1.71 103/ul Normal 1.20-3.80 [facility] Comment on above: Performed By: #### B MP #### [facility] [address] [place] [address] Dr. Fred Bell LYMPHM% 8.0 % Critically low 20.5-60.0 [facility] Comment on above: Performed By: #### B MP #### [facility] [address] [place] [address] Dr. Fred Bell MCH 27.1 pg Normal 25.9-34.0 [facility] Comment on above: Performed By: #### B MP #### [facility] [address] [place] [address] Dr. Fred Bell MCHC 30.3 g/dl Normal 29.9-35.2 [facility] Comment on above: Performed By: #### B MP #### [facility] [address] [place] [address] Dr. Fred Bell MCV 89.6 fL Normal 80.0-94.0 [facility] Comment on above: Performed By: #### B MP #### [facility] [address] [address] [address] Fred Bell METAMYELOCYTE # Normal [facility] Comment on above: Performed By: #### B MP #### [facility] [address] [place] [address] Dr. Fred Bell METAMYELOCYTE % Normal [facility] Comment on above: Performed By: #### B MP #### [facility] [address] [place] [address] Dr. Fred Bell MONOM# 2.35 103/ul Critically high 0.30-0.80 [facility] Comment on above: Performed By: #### B MP #### [facility] [address] [place] [address] Dr. Fred Bell MONOM% 11.0 % Normal 1.7-12.0 [facility] Comment on above: Performed By: #### B MP #### [facility] [address] [place] [address] Dr. Fred Bell MPV 8.8 fL Critically low 9.5-13.5 [facility] Comment on above: Performed By: #### B MP #### [facility] [address] [place] [address] Dr. Fred Bell MYELOCYTE # Normal [facility] Comment on above: Performed By: #### B MP #### [facility] [address] [place] [address] Dr. Fred Bell MYELOCYTE % Normal [facility] Comment on above: Performed By: #### B MP #### [facility] [address] [place] [address] Dr. Fred Bell NRBC Normal [facility] Comment on above: Performed By: #### B MP #### [facility] [address] [place] [address] Dr. Fred Bell PLT 491 103/ul Critically high 150-450 [facility] Comment on above: Performed By: #### B MP #### [facility] [address] [place] [address] Dr. Fred Bell RBC 3.28 106/ul Critically low 4.70-6.10 [facility] Comment on above: Result Comment: ROUL EUX 3+ Performed By: #### B MP #### [facility] [address] [place] [address] Dr. Fred Bell RDW 16.6 % Critically high 11.0-15.0 [facility] Comment on above: Performed By: #### B MP #### [facility] [address] [address] [address] Fred Bell SEG # 17.12 103/ul Critically high 1.40-6.50 [facility] Comment on above: Performed By: #### B MP #### [facility] [address] [place] [address] Dr. Fred Bell SEG % 80.0 % Critically high 43.0-75.0 [facility] Comment on above: Performed By: #### B MP #### [facility] [address] [place] [address] Dr. Fred Bell WBC 21.4 103/ul Critically high 4.0-11.0 [facility] Comment on above: Performed By: #### B MP #### [facility] [address] [place] [address] Dr. Fred Bell CYTOLOGYon 03-16-2022 SENT TO REF LAB 03/17/22 Normal [facility] Comment on above: Performed By: #### C BC #### [facility] [address] [place] [address] Dr. Fred Bell GRAM STAINon 03-16-2022 COMMENTS NO ORGANISMS OBSERVED Normal [facility] Comment on above: Performed By: #### B MP #### [facility] [address] [place] [address] Dr. Fred Bell DIPHTHEROIDS Normal [facility] Comment on above: Performed By: #### B MP #### [facility] [address] [place] [address] Dr. Fred Bell EPITHELIALS Normal [facility] Comment on above: Performed By: #### B MP #### [facility] [address] [place], [place] [id number] Dr. Fred Bell FUNGAL ELEMENTS Normal [facility] Comment on above: Performed By: #### B MP #### [facility] [address] [address] [address] Fred Bell GRAM NEG BACILLI Normal [facility] Comment on above: Performed By: #### B MP #### [facility] [address] [address] [address] Fred Bell GRAM NEG DIPPLOCOCCI Normal [facility] Comment on above: Performed By: #### B MP #### [facility] [address] [address] [address] Fred Bell GRAM POS BACILLI Normal [facility] Comment on above: Performed By: #### B MP #### [facility] [address] [address] [address] Fred Bell GRAM POSITIVE COCCI Normal [facility] Comment on above: Performed By: #### B MP #### [facility] [address] [address] [address] Fred Bell GRAM STAIN SOURCE Left upper lobe lavage [facility] Comment on above: Performed By: #### B MP #### [facility] [address] [address] [address] Fred Bell GS_DIPTH [facility] Comment on above: Performed By: #### B MP #### [facility] [address] [address] [address] Fred Bell WBC MODERATE Normal [facility] Comment on above: Performed By: #### B MP #### [facility] [address] [address] [address] Fred Bell POINT OF CARE GLUCOSEon 06-2 Glucose [Mass/Vol] 218 mg/dL Critically high [address] [place] [address] Comment on above: Performed By: #### A 1C #### [facility] [address] [address] [address] Fred Bell Glucose [Mass/Vol] 251 mg/dL Critically high -106 [facility] Comment on above: Performed By: #### P OCGLUC #### [facility] [address] [address] [address] Fred Bell PROF CHEM 8 (BAS METB)on Anion gap [Moles/Vol] 13.9 mmol/L Normal [facility] Comment on above: Performed By: #### B MP #### [facility] [address] [address] [address] Fred Bell Calcium [Mass/Vol] 8.7 mg/dL Normal 8.5-10.1 [facility] Comment on above: Performed By: #### B MP #### [facility] [address] [address] [address] Fred Bell Chloride [Moles/Vol] 106 mmol/L Normal 98-107 [facility] Comment on above: Performed By: #### B MP #### [facility] [address] [address] [address] Fred Bell CO2 [Moles/Vol] 25.4 mmol/L Normal 21.0-32.0 [facility] Comment on above: Performed By: #### B MP #### [facility] [address] [address] [address] Fred Bell Creatinine [Mass/Vol] 1.42 mg/dL Critically high 0.70-1.30 [facility] Comment on above: Performed By: #### B MP #### [facility] [address] [address] [address] Fred Bell EGFR-AF DUTCH >60 Normal >=60 [facility] Comment on above: Performed By: #### B MP #### [facility] [address] [address] [address] Fred Bell EGFR-NON AF DUTCH 52 mL/min/1.73m2 Critically low >=60 [facility] Comment on above: Performed By: #### B MP #### [facility] [address] [address] [address] Fred Bell Glucose [Mass/Vol] 121 mg/dL Critically high 74-106 [facility] Comment on above: Performed By: #### B MP #### [facility] [address] [address] [address] Fred Bell Potassium [Moles/Vol] 4.3 mmol/L Normal 3.5-5.1 [facility] Comment on above: Performed By: #### B MP #### [facility] [address] [address] [address] Fred Bell Sodium [Moles/Vol] 141 mmol/L Normal 136-145 [facility] Comment on above: Performed By: #### B MP #### [facility] [address] [address] [address] Fred Bell Urea nitrogen [Mass/Vol] 12.0 mg/dL Normal 7.0-18.0 [facility] Comment on above: Performed By: #### B MP #### [facility] [address] [address] [address] Fred Bell Urea nitrogen/Creatinine [Mass ratio] 8.5 mg/mg Normal [facility] Comment on above: Performed By: #### B MP #### [facility] [address] [address] [address] Fred Bell XR CHEST 2 Von [...] by: AARTI LAYTON Date: 2022-03-16 06:07 Normal [facility] BNPon 03-15-2022 Natriuretic peptide B (Bld) [Mass/Vol] 3075.0 pg/mL Critically high <=900.0 [facility] Comment on above: Performed By: #### A 1C #### [facility] [address] [place] [address] Dr. Fred Bell CARDIAC MOUNIKA ADMITon 022 CK [Catalytic activity/Vol] 30 U/L Critically low 39-308 [facility] Comment on above: Performed By: #### V ANCT #### [facility] [address] [place] [address] Dr. Fred Bell CK.MB [Mass/Vol] 0.32 ng/mL Normal <=3.60 [facility] Comment on above: Performed By: #### V ANCT #### [facility] [address] [place] [address] Dr. Fred Bell HSTROP 4.8 pg/mL Normal 4.0-76.1 [facility] Comment on above: Result Comment: CUT- OFF POINTS HAVE BEEN ESTABLISHED BASED ON THE FOURTH UNIVERSAL DEFINITIONS OF MYOCARDIAL INFARCTION. THE UPPER REFERENCE LIMIT (URL) OF TROPONIN, DEFINED THE 99TH PERCENTILE OF cTnI DISTRIBUTION IN A REFERENCE POPULATION, HAS BEEN CONFIRMED THE DECISION THRESHOLD FOR WI DIAGNOSIS. Performed By: #### V ANCT #### [facility] [address] [place] [address] Dr. Fred Bell DEEPALI 40 ng/mL Normal 16-96 [facility] Comment on above: Performed By: #### V ANCT #### [facility] [address] [place] [address] Dr. Fred Bell CBC AUTO DIFFon 03-15-2022 BASO # 0.1 103/ul Normal 0.0-0.1 [facility] Comment on above: Performed By: #### C BC #### [facility] [address] [place] [address] Dr. Fred Bell Basophils/100 WBC (Bld) 0.3 % Normal 0.2-2.0 [facility] Comment on above: Performed By: #### C BC #### [facility] [address] [place] [address] Dr. Fred Bell EO # 0.1 103/ul Normal 0.0-0.7 [facility] Comment on above: Performed By: #### C BC #### [facility] [address] [address] [address] Fred Bell Eosinophils/100 WBC (Bld) 0.6 % Critically low 0.9-7.0 [facility] Comment on above: Performed By: #### C BC #### [facility] [address] [place] [address] Dr. Fred Bell Erythrocyte distribution width (RBC) [Ratio] 16.7 % Critically high 11.0-15.0 [facility] Comment on above: Performed By: #### C BC #### [facility] [address] [place] [address] Dr. Fred Bell Hematocrit (Bld) [Volume fraction] 35.0 % Critically low 42.0-54.0 [facility] Comment on above: Performed By: #### C BC #### [facility] [address] [place] [address] Dr. Fred Bell Hemoglobin (Bld) [Mass/Vol] 10.8 g/dL Critically low 14.0-18.0 [facility] Comment on above: Performed By: #### C BC #### [facility] [address] [place] [address] Dr. Fred Bell IG # 0.15 10e3/ul Critically high 0.00-0.03 [facility] Comment on above: Performed By: #### C BC #### [facility] [address] [place] [address] Dr. Fred Bell IG % 0.7 % Critically high 0.0-0.5 [facility] Comment on above: Performed By: #### C BC #### [facility] [address] [place] [address] Dr. Fred Bell LYMPH # 1.1 103/ul Critically low 1.2-3.8 [facility] Comment on above: Performed By: #### C BC #### [facility] [address] [place] [address] Dr. Fred Bell Lymphocytes/100 WBC (Bld) 5.4 % Critically low 20.5-60.0 [facility] [facility] Comment on above: Performed By: #### C BC #### [facility] [address] [address] [address] Fred Bell MANUAL DIFF REQ NO Normal [facility] Comment on above: Performed By: #### C BC #### [facility] [address] [address] [address] Fred Bell MCH (RBC) [Entitic mass] 27.1 pg Normal 25.9-34.0 [facility] Comment on above: Performed By: #### C BC #### [facility] [address] [address] [address] Fred Bell MCHC (RBC) [Mass/Vol] 30.9 g/dL Normal 29.9-35.2 [facility] Comment on above: Performed By: #### C BC #### [facility] [address] [place] [address] Dr. Fred Bell MCV (RBC) [Entitic vol] 87.9 fL Normal 80.0-94.0 [facility] Comment on above: Performed By: #### C BC #### [facility] [address] [place] [address] Dr. Fred Bell MONO # 1.4 103/ul Critically high 0.3-0.8 [facility] Comment on above: Performed By: #### C BC #### [facility] [address] [place] [address] Dr. Fred Bell Monocytes/100 WBC (Bld) 6.4 % Normal 1.7-12.0 [facility] Comment on above: Performed By: #### C BC #### [facility] [address] [place] [address] Dr. Fred Bell NEUT # 18.4 103/ul Critically high 1.4-6.5 The [facility] Comment on above: Performed By: #### C BC #### [facility] [address] [place] [address] Dr. Fred Bell Neutrophils/100 WBC (Bld) 86.6 % Critically high 43.0-75.0 [facility] Comment on above: Performed By: #### C BC #### [facility] [address] [address] [address] Fred Bell Platelet mean volume (Bld) [Entitic vol] 8.5 fL Critically low 9.5-13.5 [facility] Comment on above: Performed By: #### C BC #### [facility] [address] [address] [address] Fred Bell PLT 525 103/ul Critically high 150-450 [facility] Comment on above: Performed By: #### C BC #### [facility] [address] [address] [address] Fred Bell RBC 3.98 106/ul Critically low 4.70-6.10 [facility] Comment on above: Performed By: #### C BC #### [facility] [address] [address] [address] Fred Bell WBC 21.2 103/ul Critically high 4.0-11.0 [facility] Comment on above: Performed By: #### C BC #### [facility] [address] [place] [address] Dr. Fred Bell CTA CHEST WO W [...] DEEDEE LIZARRAGA Date: 2022-03-15 15:33 Normal [facility] CULTURE BLOODon 03-15-2022 Microscopic examination of blood, culture Culture Observations: NO GROWTH AT 5 DAYS. Normal [facility] Comment on above: Performed By: #### C DIFPOC #### [facility] [address] [place] [address] Dr. rFed Bell Covid-19 PCR ([facility])on 02-25 SARS-CoV-2 (COVID-19) RNA DALE+probe Ql (Unsp spec) Not detected Normal NOT DETECTED [facility] Comment on above: Result Comment: When diagnostic [...] for this test is supported by the [place] of Health and Human Service's declaration that [...] used). Performed By: #### B MP #### [facility] [address] [place] [address] Dr. Fred Bell D-DIMERon 03-15-2022 D-DIMER 5.11 mg/L FEU Critically high <=0.59 [facility] Comment on above: Performed By: #### C DIFPOC #### [facility] [address] [place], [place] [address] Dr. Fred Bell D-DIMER COMMENTS SEE BELOW Normal [facility] Comment on above: Result Comment: Incr eases [...] hospitalization. Performed By: #### C DIFPOC #### [facility] [address] [place] [address] Dr. Fred Bell LACTATE/LACTIC ACIDon 2021 Lactate [Moles/Vol] 2.0 mmol/L Critically high 0.4-1.9 [facility] Comment on above: Performed By: #### B MP #### [facility] [address] [place] [address] Dr. Fred Bell Lactate [Moles/Vol] 1.5 mmol/L Normal 0.4-1.9 [facility] Comment on above: Performed By: #### C DIFPOC #### [facility] [address] [place] [address] Dr. Fred Bell POINT OF CARE GLUCOSEon 02-25 Glucose [Mass/Vol] 178 mg/dL Critically high 74-106 [facility] Comment on above: Performed By: #### A 1C #### [facility] [address] [place] [address] Dr. Fred Bell PROF 14(COMP METB)on 022 Albumin [Mass/Vol] 2.3 g/dL Critically low 3.4-5.0 [facility] Comment on above: Performed By: #### A 1C #### [facility] [address] [place] [address] Dr. Fred Bell Albumin/Globulin [Mass ratio] 0.4 {ratio} Normal [facility] Comment on above: Performed By: #### A 1C #### [facility] [address] [place] [address] Dr. Fred Bell ALP [Catalytic activity/Vol] 486 U/L Critically high 46-116 [facility] Comment on above: Performed By: #### A 1C #### [facility] [address] [place] [address] Dr. Fred Bell ALT [Catalytic activity/Vol] 37 U/L Normal 16-63 [facility] Comment on above: Performed By: #### A 1C #### [facility] [address] [address] [address] Fred Bell Anion gap [Moles/Vol] 18.5 mmol/L Normal [facility] Comment on above: Performed By: #### A 1C #### [facility] [address] [place] [address] Dr. Fred Bell AST [Catalytic activity/Vol] 34 U/L Normal 15-37 [facility] Comment on above: Performed By: #### A 1C #### [facility] [address] [place] [address] Dr. Fred Bell Bilirubin [Mass/Vol] 0.5 mg/dL Normal 0.2-1.0 [facility] Comment on above: Performed By: #### A 1C #### [facility] [address] [place] [address] Dr. Fred Bell Calcium [Mass/Vol] 9.6 mg/dL Normal 8.5-10.1 [facility] Comment on above: Performed By: #### A 1C #### [facility] [address] [place] [address] Dr. Fred Bell Chloride [Moles/Vol] 102 mmol/L Normal 98-107 [facility] Comment on above: Performed By: #### A 1C #### [facility] [address] [place] [address] Dr. Fred Bell CO2 [Moles/Vol] 22.8 mmol/L Normal 21.0-32.0 [facility] Comment on above: Performed By: #### A 1C #### [facility] [address] [place] [address] Dr. Fred Bell Creatinine [Mass/Vol] 1.37 mg/dL Critically high 0.70-1.30 [facility] Comment on above: Performed By: #### A 1C #### [facility] [address] [address] [address] Fred Bell EGFR-AF DUTCH >60 Normal >=60 [facility] Comment on above: Performed By: #### A 1C #### [facility] [address] [address] [address] Fred Bell EGFR-NON AF DUTCH 54 mL/min/1.73m2 Critically low >=60 [facility] Comment on above: Performed By: #### A 1C #### [facility] [address] [address] [address] Fred Bell Globulin (S) [Mass/Vol] 6.5 g/dL Normal [facility] Comment on above: Performed By: #### A 1C #### [facility] [address] [address] [address] Fred Bell Glucose [Mass/Vol] 105 mg/dL Normal 74-106 [facility] Comment on above: Performed By: #### A 1C #### [facility] [address] [address] [address] Fred Bell Potassium [Moles/Vol] 4.3 mmol/L Normal 3.5-5.1 [facility] Comment on above: Performed By: #### A 1C #### [facility] [address] [address] [address] Fred Bell Protein [Mass/Vol] 8.8 g/dL Critically high 6.4-8.2 [facility] Comment on above: Performed By: #### A 1C #### [facility] [address] [address] [address] Fred Bell Sodium [Moles/Vol] 139 mmol/L Normal 136-145 [facility] Comment on above: Performed By: #### A 1C #### [facility] [address] [address] [address] Fred Bell Urea nitrogen [Mass/Vol] 14.0 mg/dL Normal 7.0-18.0 [facility] Comment on above: Performed By: #### A 1C #### [facility] [address] [place] [address] Dr. Fred Bell Urea nitrogen/Creatinine [Mass ratio] 10.2 mg/mg Normal [facility] Comment on above: Performed By: #### A 1C #### [facility] [address] [place] [address] Dr. Fred Bell PROTIMEon 03-15-2022 INR Coag (PPP) [Relative time] 0.98 {INR} Normal [facility] Comment on above: Performed By: #### D DIM, PT, PTT #### [facility] [address] [place] [address] Dr. Fred Bell INR GUIDELINES SEE BELOW Normal [facility] Comment on above: Result Comment: SAMANTHA RED INR: 2.0 - 3.0 CONDITIONS NOT LISTED BELOW 2.5 - 3.5 FOR PROSTHETIC HEART VALVE REPLACEMENT 2.5 - 3.5 RECURRENT THROMBOSIS Performed By: #### D DIM, PT, PTT #### [facility] [address] [place] [address] Dr. Fred Bell PT Coag (PPP) [Time] 10.6 s Normal 9.0-11.6 [facility] Comment on above: Performed By: #### D DIM, PT, PTT #### [facility] [address] [place] [address] Dr. Fred Bell PTTon 03-15-2022 aPTT Coag (Bld) [Time] 26.0 s Normal 22.3-36.2 [facility] Comment on above: Performed By: #### C DIFPOC #### [facility] [address] [place] [address] Dr. Fred Bell XR CHEST 1 Von [...] suggestive of pneumonia. Electronically authenticated by: DEEDEE LIZARRAGA Date: 2022-03-15 12:30 Normal [facility] Vital Signs Date Time Vital Sign Value Performing Clinician Facility 06-08-2022 18:40-0400 Body height 170.18 cm Anuja Perez Other [facility] Other 06-08-2022 18:40-0400 Body mass index (BMI) [Ratio] 21.92 kg/m2 Anuja Perez Other [facility] Other 06-08-2022 18:40-0400 Body temperature 99.1 [degF] Anuja Perez Other [facility] Other 06-08-2022 18:40-0400 Body weight 63.5 kg Anuja Perez Other [facility] Other 06-08-2022 18:40-0400 Respiratory rate 18 /min Anuja Perez Other [facility] Other 06-08-2022 18:40-0400 SaO2% (BldA) [Mass fraction] 97 % Anuja Perez Other [facility] Other Encounters Encounter Date Encounter Type Care Provider Facility Start: 11-14-2023 End: 11-14-2023 ambulatory KATARINA MADRIGAL Not Available Start: 10-17-2023 End: 10-17-2023 ambulatory KATARINA MADRIGAL Not Available Start: 06-21-2023 End: 06-23-2023 ambulatory AB [facility] Start: 12-20-2022 End: 12-21-2022 ambulatory DENVER COX Facility:[facility] Start: 12-01-2022 End: 12-01-2022 ambulatory [facility] Start: 11-19-2022 Encounter for genera l adult medical examination without abnormal findings DR KATARINA MADRIGAL [facility] Start: 11-15-2022 End: 11-16-[address] KATARINA MADRIGAL Facility:[facility] Start: 11-15-2022 End: 11-16-2022 Encounter for general adult medical examination without abnormal findings DR KATARINA MADRIGAL Facility:[facility] Start: 06-08-2022 End: 06-08-2022 ambulatory Anuja Perez Other [facility] Other Start: 06-08-2022 Office outpatient vi sit 15 minutes Anuja Perez [facility] Start: 04-05-2022 End: 04-06-[address] FRANCESCA BUENO Facility:[facility] Start: 03-30-2022 End: 03-30-[address] KATARINA MADRIGAL Facility:[facility] Start: 03-25-2022 End: 03-25-[address] KATARINA MADRIGAL Facility:[facility] Start: 03-23-2022 End: 03-23-[address] KATARINA MADRIGAL Facility:[facility] Start: 03-15-2022 End: 03-19-2022 Evaluation and management of inpatient JERE FERNANDEZ . Facility: Start: 01-03-2018 End: 01-04-2018 Ambulatory DEFAULT PHYSICIAN Facility:[facility] Start: 11-16-2017 End: 11-17-2017 Ambulatory DEFAULT PHYSICIAN Facility:[facility] Procedures Date Procedure Procedure Detail Performing Clinician Start: 11-15-2022 PSA screening JERE DUARTE MSA . Comment on above: Performed By: #### V ANCT #### [facility] [address] [place] [address] Dr. Fred Bell Start: 03-18-2022 Insertion of Infusio n Device into Superior Vena Cava, Percutaneous Approach JERE FERNANDEZ . Start: 03-16-2022 Drainage of Left Upp er Lung Lobe, Via Natural or Artificial Opening Endoscopic, Diagnostic JERE CHRISTY . Payers Date Payer Category Payer Unknown [id number] 2.16.84 [id number] 1965 Unknown [id number] 2.16.84 [id number] 1965 Unknown [id number] 2.16.84 [id number] 1966 Unknown [id number] 2.16.84 [id number] 1966 Unknown [id number] 2.16.84 [id number] 1966 Unknown [id number] 2.16.84 [id number] 1966 Unknown [id number] 2.16.84 [id number] 1966 Unknown [id number] 2.16.84 [id number] 1966 Unknown [id number] 2.16.84 [id number] 1958 Private Health Insurance [id number] Unknown Social History Date Type Detail Facility Unknown if ever smoked [facility] Other Sex Assigned At Sex Assigned At Bir th [facility] Other Progress note 06-21-2023 Note Date & Type Note Facility 06-21-2023 Note [facility] Note Chief Complaint: Patient here [...] history of Coronary artery disease, Diabetes mellitus ([facility]), GERD (gastroesophageal reflux disease), Hyperlipidemia, Hypertension, and PVD (peripheral vascular disease) ([facility]). Surgical History He has a past surgical [...] Normal right ventricular (more content not included)... [facility] Progress note 12-01-2022 Note Date [...] All other systems reviewed and are negative. [facility] Progress note 12-01-2022 Note Date & Type Note Facility 12-01-2022 Note [facility] SUBJECTIVE Chief Complaint Patient [...] Diagnosis Date Coronary artery disease Diabetes mellitus ([facility]) GERD (gastroesophageal reflux disease) Hyperlipidemia Hypertension PVD (peripheral vascular disease) ([facility]) Family History Problem Relation Name Age of [...] Mood normal. Beh (more content not included)... [facility] Evaluation note 06-08-2022 Note Date [...] May, Poison viet dermatitis (ICD-10 - L23.7) [facility] Other History general Narrative - Reported Note [...] Hospitalization History SEE ABOVE Hospitalization History pneumonia [facility] Other Summary Purpose Family History No Family [...] and content) DATE CREATED AUTHOR 03/16/2018 [facility] DATE CREATED AUTHOR AUTHOR'S ORGANIZ ATION 12/30/[address] [facility] DATE CREATED AUTHOR AUTHOR'S ORGANIZ ATION 06/29/2023 [facility] DATE CREATED AUTHOR AUTHOR'S ORGANIZ ATION 11/15/2023 [facility] EPIC REASON FOR VISIT (unrecogniz ed section and content) 2 DAYS OF COVID SYMPTOMS GRE Y [employer] [id number] FOR RECORDS PERTAINING TO PATIENTS WHO ARE [...] BE BASED ON THE PRIMARY CLINICAL RECORDS. [employer] provides no warranty or guarantee of the accuracy or completeness of information in this document.
[2023-11-28] MEDS: REGADENOSON 0.4 MG/5 ML SYRINGE 0.400000000000000022 MG IV (10:39)
== END 2023-11-28 08:28 | disposition home or self-care (01) ==
LOC: NM 08:27
PROVIDERS: PCP Family Medicine; Visit Provider Family Medicine
DX: I50.32 Chronic diastolic (congestive) heart failure (principal); I25.10 Atherosclerotic heart disease of native coronary artery without angina pectoris; R06.02 Shortness of breath
CPT/HCPCS: 78452; 93017; A9500; J2785

== ENCOUNTER 2024-11-06 11:32 | Emergency (ER) | payer OTHER, SELFPAY ==
[2024-11-06] VITALS (26 sets, daily range): BP systolic 140–144; BP diastolic 94–114; PULSE 65–79; RESP 16; TEMP 37; O2SAT 80–100; BMI 27.4
--- NOTE | 2024-11-06 11:37 | XR_ITS ---
The [address] [address] Patient Name: FRANCESCA JHAVERI MRN: [id number] date: 1965 Sex: M Assigned Patient Location: ED.MAIN Current Patient Location: ED.MAIN Accession/Order Number: [id number] Exam Date: 11/06/2024 11:41 Report Date: 11/06/2024 13:05 At the request of: INDY SELBY Procedure: XR chest 1V EXAM: XR chest 1V HISTORY: cp, sob COMPARISON: 10/17/2023 TECHNIQUE: AP portable FINDINGS: LUNGS: The right lung is clear. Mild left basilar infiltrate obscures the midportion of the hemidiaphragm, chronic juxtaphrenic peak suspected, mild left midlung linear infiltrate VASCULATURE: No increased pulmonary vasculature. PLEURA: No pneumothorax, effusion, or pleural thickening. CARDIAC: No cardiomegaly or cardiac silhouette abnormality. MEDIASTINUM: No visible mass or adenopathy. Median sternotomy wires BONES: No fracture or visible bone lesion. OTHER: Negative. XR/XR chest 1V IMPRESSION: Stable left lung infiltrates, chronic changes are favored. Electronically authenticated by: FRANCESCA BUENO Date: 11/06/2024 13:05
--- NOTE | 2024-11-06 11:37 | ECG_ITS ---
The [facility] Test Date: 2024-11-06 Pat Name: FRANCESCA JHAVERI Department: Room: - Gender: Male Tablet Tester: : 1965 Requested By: [id number] Order Number: [id number] Reading MD: PEG SANTIAGO Measurements Intervals [place] Rate: 66 P: 67 DC: 150 QRS: 54 QRSD: 82 T: 74 QT: 422 QTc: 435 Interpretive Statements 1100 Sinus rhythm 9110 normal ECG Compared to ECG 11/18/2023 10:27:28 No significant changes Electronically Signed On 11-06-2024 20:48:19 EST by PEG SANTIAGO
[2024-11-06 11:46] LABS: Basophils Absolute Auto 0.1 10^3/uL (0.0-0.1); Basophils Percent Auto 0.6 % (0.2-2.0); Eosinophils Absolute Auto 0.4 10^3/uL (0.0-0.7); Eosinophils Percent Auto 2.4 % (0.9-7.0); Hemoglobin 9.2 g/dL (14.0-18.0); Immature Granulocytes Abs Auto 0.13 10^3/uL (0.00-0.03); Immature Granulocytes Pct Auto 0.8 % (0.0-0.5); Lymphocytes Absolute Auto 2.8 10^3/uL (1.2-3.8); Lymphocytes Percent Auto 17.5 % (20.5-60.0); Mean Corpuscular HGB Conc 29.7 g/dL (29.9-35.2); Mean Corpuscular Hemoglobin 28.9 pg (25.9-34.0); Mean Corpuscular Volume 97.5 fL (80.0-94.0); Mean Platelet Volume 10.7 fL (9.5-13.5); Monocytes Percent Auto 6.5 % (1.7-12.0); Neutrophils Absolute Auto 11.4 10^3/uL (1.4-6.5); Neutrophils Percent Auto 72.2 % (43.0-75.0); Platelet Count 189 10^3/uL (150-450); Red Blood Count 3.18 10^6/uL (4.70-6.10); White Blood Count 15.8 10^3/uL (4.0-11.0)
--- OUTSIDE RECORDS SUMMARY | 2024-11-06 11:52 | XMS_ITS | CCD ---
Author Organization [facility] Care Team Providers Care Hepatologist Name Role Phone PHYSICIAN, DEFAULT Unavailable Unavailable PHYSICIAN, DEFAULT Unavailable Unavailable NADERETomi, RILEY Unavailable Unavailable PHYSICIAN, DEFAULT Unavailable Unavailable PHYSICIAN, DEFAULT Unavailable Unavailable NADERER, RILEY Unavailable Unavailable Anuja Perez Unavailable SAMSA ., JERE Procedure Practitioner Unavailab dipika PAUL ., DR SMALLS Attending Unavailable HOY ., DR SMALLS Consulting Unavailable HOY ., DR SMALLS Admitting Unavailable NADERER, DR RILEY Peña Primary Care Unavailable NADERER, DR RILEY Peña Procedure Practitioner Mago LIZARRAGA, DR DEEDEE Krishna Consulting Unavailable NADERER, DR RILEY Peña Consulting Unavailable SAMSA ., JERE Consulting Unavailable AGUBOSIM, BRANDIN Consulting Unavailable LONG, KAPIL Consulting Unavailable JOHAN, BRANDON Consulting Unavailable BETTY ., DERRICK Consulting Unavailable SAID, AARTI Consulting Unavailable DANIEL, TREVOR Consulting Unavailable NADERER, DR RILEY Peña Admitting Unavailable NADERER, DR RILEY Peña Attending Unavailable NADERER, DR RILEY Peña Primary Care Unavailable NADERER, DR RILEY Peña Consulting Unavailable DENVER COX Attending Unavailable BROOKEDENVER Consulting Unavailable GENESIS COXINDA C Admitting Unavailable NADERER, DR RILEY Peña Primary Care Unavailable NADERER, DR RILEY Peña Primary Care Unavailable NADERER, DR RILEY Peña Admitting Unavailable NADERER, DR RILEY Peña Attending Unavailable NADERER, DR RILEY Peña Consulting Unavailable NADERER, DR RILEY Peña Primary Care Unavailable NADERER, DR RILEY Peña Admitting Unavailable NADERER, DR RILEY Peña Attending Unavailable NADERER, DR RILEY Peña Consulting Unavailable NADERER, DR RILEY Peña Primary Care Unavailable NADERER, DR RILEY Peña Admitting Unavailable NADERER, DR RILEY Peña Attending Unavailable NADERER, DR BRAY A Consulting Unavailable WEST, DR FRANCESCA Haynes Consulting Unavailable JERE EVANS Attending Unavailable JERE EVANS Admitting Unavailable DR RILEY MADRIGAL Primary Care Unavailable ROHAN, DR RILEY Peña Referring Unavailable JERE EVANS Consulting Unavailable RILEY MADRIGAL Attending Unavailable RILEY MADRIGAL Attending Unavailable RILEY MADRIGAL Attending Unavailable DENVER COX Attending Unavailable Riley Madrigal MD Primary Care Provider [phone] Medications Current Medications Medication Drug Class(es) Dates Sig (Normalized) Sig (Original) acetaminophen 500 mg oral capsule (6 sources) Acetaminophen 50 0 MG capsule every 6 (six) hours. Active take 2 tablets by mo [facility] every six hours as needed Acetaminophen 500 mg 2 tablet as needed Orally every 6 hrs Active [id number] 200 actuat albuterol 0.09 mg/actuat metered dose inhaler (5 sources) beta2-Adrenergic Agonist Start: 10-19-2023 take 2 puff(s) by mouth every four hours as needed albuterol HFA 90 mcg/act inhaler Indications: Chronic obstructive pulmonary disease, unspecified (CMS/HCC) INHALE 2 PUFFS BY MOUTH EVERY 4 HOURS NEEDED 8.5 g 3 10/19/2023 Active aspirin 81 mg delayed release oral tablet (6 sources) Platelet Aggregation Inhibitor, Nonsteroidal Anti-inflammatory Drug aspirin (Aspir-Low) 81 MG EC tablet 1 (one) time each day at the same time. Active take 1 tablet by richy th every twenty-four hours Aspirin 81 MG 1 tablet Orally Once a day Active atorvastatin 80 mg oral tablet (6 sources) HMG-CoA Reductase Inhibitor atorvastatin (Lipito r) 80 MG tablet 1 (one) time each day at the same time. Active take 1 tablet by richy th every twenty-four hours Lipitor 40 MG 1 tablet Orally Once a day Active carvedilol 12.5 mg oral tablet (5 sources) alpha-Adrenergic Valencia, beta-Adrenergic Valencia carvedilol (Coreg) 1 2.5 MG tablet every 12 (twelve) hours. Active dapagliflozin 10 mg oral tablet (5 sources) Sodium-Glucose Cotransporter 2 Inhibitor dapagliflozin (Far ga) 10 MG Take by mouth Active 12 hr dextromethorphan hydrobromide 30 mg / guaiFENesin 600 mg extended release oral tablet (1 source) Uncompetitive S-omsuxb-Q-aspartate Receptor Antagonist, Sigma-1 Agonist Start : 06-08 take 1 tablet by mouth every twelve hours Mucinex DM 30-600 MG 1 tablet as needed Orally every 12 hrs May, Active diphenhydrAMINE hydrochloride 25 mg oral capsule (5 sources) Histamine-1 Receptor Antagonist diphenhydrAMINE (Allergy Relief) 25 MG capsule every 8 (eight) hours. Active doxycycline monohydrate 100 mg oral capsule (1 source) Tetracycline-class Drug Start : 06-08 take 1 capsule by mouth every twelve hours Doxycycline Monohydrate 100 MG 1 capsule Orally every 12 hrs for 7 days May, Active furosemide 40 mg oral tablet (5 sources) Loop Diuretic Start : 04-02 take 1 tablet by mouth once daily furosemide (Lasix) 40 MG tablet Indications: Acute on chronic diastolic (congestive) heart failure (CMS/HCC) TAKE 1 TABLET BY MOUTH DAILY 30 tablet 5 04/02/2024 Active lisinopril 10 mg oral tablet (5 sources) Angiotensin Converting Enzyme Inhibitor lisinopril 10 MG tab let Take by mouth Daily Active methylPREDNISolone 4 mg oral tablet (1 source) Corticosteroid Start : 06-08 methylPREDNISolone 4 MG as directed Orally Once a day for 6 days May, Active metoprolol tartrate 50 mg oral tablet (1 source) beta-Adrenergic Valencia take 1 tablet by mouth every twelve hours Metoprolol Tartrate 50 MG 1 tablet with food Orally Twice a day Active 10 actuat olodaterol 0.0025 mg/actuat / tiotropium 0.0025 mg/actuat inhalation spray (5 sources) Anticholinergic, beta2-Adrenergic Agonist Start : 11-14 tiotropium-olodaterol (Stiolto Respimat) 2.5-2.5 MCG/ACT aerosol solution inhaler Indications: Chronic obstructive pulmonary disease, unspecified COPD type (CMS/HCC) Inhale 2 Inhalation in the morning. 4 g 5 11/14/2023 Active omeprazole 40 mg delayed release oral capsule (7 sources) Proton Pump Inhibitor Start : 08-22 take 1 capsule by mouth once daily omeprazole (PriLOSEC) [address] capsule Indications: Gastro-esophageal reflux disease without esophagitis TAKE 1 CAPSULE BY MOUTH DAILY 30 capsule 5 08/22/2024 Active Start: 03-05-2024 End: 08-22-2024 take 1 capsule by mouth once daily omeprazole (PriLOSEC) [address] capsule Indications: Gastro-esophageal reflux disease without esophagitis TAKE 1 CAPSULE BY MOUTH DAILY 30 capsule 5 03/05/2024 08/22/2024 Discontinued take 1 capsule by mo ut every twelve hours Omeprazole 40 mg 1 capsule Orally bid Active traMADol hydrochloride 50 mg oral tablet (4 sources) Opioid Agonist Start: 09-03-2024 End: 10-03-2024 take 1 tablet by mouth every four hours for pain traMADol (Ultram) 50 MG tablet Indications: Bilateral primary osteoarthritis of knee Take 1 tablet (50 mg) by mouth every 4 (four) hours if needed for severe pain 180 tablet 1 09/03/2024 10/03/2024 Active Start: 06-11-2024 End: 07-11-2024 take 1 tablet by mouth every four hours for pain traMADol (Ultram) 50 MG tablet Indications: Bilateral primary osteoarthritis of knee Take 1 tablet (50 mg) by mouth every 4 (four) hours if needed for severe pain 180 tablet 1 06/11/2024 07/11/2024 Active take 1 tablet by richy every six hours traMADol HCl 50 MG 1 tablet as needed Orally every 6 hrs Active Problems Active Problems Problem Classification Problem Date Documented Date Episodic/Chronic Allergic reactions (1 source) Allergic contact dermatitis due to plants, except food Episodic Chronic kidney disease (9 sources) Chronic kidney disease stage 3; Translations: [Chronic kidney disease, stage 3 (moderate)] Onset: 4 10-17-2023 Chronic Chronic kidney disease (1 source) Chronic kidney disease; Translations: [CHRONIC KIDNEY DISEASE STAGE 3A] Onset: 2 Chronic obstructive pulmonary disease and bronchiectasis (7 sources) Chronic obstructive lung disease; Translations: [Chronic obstructive pulmonary disease, unspecified] Onset: 4 10-17-2023 Chronic Congestive heart failure; nonhypertensive (7 sources) Chronic heart failure co-occurrent with normal ejection fraction; Translations: [Chronic diastolic (congestive) heart failure] Onset: 4 10-17-2023 Chronic Coronary atherosclerosis and other heart disease (15 sources) Atherosclerotic heart disease of [place] coronary artery without angina pectoris; Translations: [Coronary arteriosclerosis] Onset: 1 Resolved: 4 Chronic Deficiency and other anemia (1 source) Anemia of renal disease; Translations: [Anemia in chronic kidney disease] Chronic Diabetes mellitus with complications (11 sources) Type 2 diabetes mellitus; Translations: [Type 2 diabetes mellitus with diabetic chronic kidney disease] Onset: 2 10-17-2023 Chronic Disorders of lipid metabolism (9 sources) Mixed hyperlipidemia; Translations: [Dyslipidemia] Onset: 2 Chronic Esophageal disorders (6 sources) Gastroesophageal reflux disease without esophagitis; Translations: [Gastro-esophageal reflux disease without esophagitis] Onset: 3 08-22-2024 Chronic Essential hypertension (8 sources) Essential (primary) hypertension; Translations: [Benign essential hypertension] Onset: 3 11-14-2023 Chronic Hyperplasia of prostate (5 sources) Nocturia due to benign prostatic hypertrophy; Translations: [Benign prostatic hyperplasia with lower urinary tract symptoms] Onset: 4 10-17-2023 Chronic Hypertension with complications and secondary hypertension (2 sources) Hypertensive renal disease; Translations: [Hypertensive chronic kidney disease with stage 1 through stage 4 chronic kidney disease, or unspecified chronic kidney disease] Onset: 2 Chronic Immunizations and screening for infectious disease (1 source) Contact with and (suspected) exposure to other viral communicable diseases Episodic Nutritional deficiencies (6 sources) Vitamin D deficiency, unspecified; Translations: [Vitamin D deficiency] Onset: 3 10-17-2023 Chronic Osteoarthritis (20 sources) Primary coxarthrosis, bilateral; Translations: [Bilateral primary osteoarthritis of hip] Onset: 3 Resolved: 4 10-17-2023 Chronic Other aftercare (5 sources) Patient encounter status; Translations: [Other buttermaker helper (current) drug therapy] Onset: 4 10-17-2023 Episodic Other connective tissue disease (5 sources) History of total replacement of left hip joint; Translations: [Presence of left artificial hip joint] Onset: 3 02-25-2023 Chronic Other connective tissue disease (5 sources) History of repair of hip joint; Translations: [Presence of right artificial hip joint] Onset: 3 05-02-2023 Chronic Other diseases of kidney and ureters (1 source) Secondary hyperparathyroidism; Translations: [Secondary hyperparathyroidism of renal origin] Chronic Other lower respiratory disease (1 source) Other forms of dyspnea; Translations: [OTHER FORMS OF DYSPNEA] Onset: 3 Episodic Other screening for suspected conditions (not mental disorders or infectious disease) (8 sources) Encounter for screening for malignant neoplasm of prostate; Translations: [Other specified abnormal findings of blood chemistry] Onset: 2 06-11-2024 Episodic Spondylosis; intervertebral disc disorders; other back problems (7 sources) Degeneration of lumbar intervertebral disc; Translations: [DDD (degenerative disc disease), lumbar] Onset: 4 11-14-2023 Chronic Unclassified (1 source) CONTACT W/AND (SUSP) EXPOS COVID-19; Translations: [CONTACT W/AND (SUSP) EXPOS COVID-19] Onset: 2 Past or Other Problems Problem Classification Problem Date Documented Da te Episodic/Chronic Asthma (11 sources) Mild intermittent asthma, uncomplicated; Translations: [Asthma without status asthmaticus] Onset: 05-21-2009 Resolved: 10-17-2023 10-17-2023 Chronic Complications of surgical procedures or medical care (5 sources) Drug-induced hypotension; Translations: [Hypotension due to drugs] Onset: 10-17-2023 Resolved: 11-14-2023 11-14-2023 Episodic Coronary atherosclerosis and other heart disease (1 source) Presence of aortocoronary bypass graft; Translations: [PRESENCE AORTOCORONARY BYPASS GRAFT] Onset: 03-30-2022 Episodic Genitourinary symptoms and ill-defined conditions (5 sources) Polyuria; Translations: [Polyuria] Onset: 10-17-2023 Resolved: 11-14-2023 11-14-2023 Episodic Lymphadenitis (1 source) Generalized enlarged lymph nodes; Translations: [GENERALIZED ENLARGED LYMPH NODES] Onset: 03-30-2022 Episodic Other aftercare (1 source) USP (current) use of aspirin; Translations: [SNF CURRENT USE OF ASPIRIN] Onset: 03-30-2022 Episodic Other aftercare (1 source) Other buttermaker helper (current) drug therapy; Translations: [OTH SIGN INSTALLER CURRENT DRUG THERAPY] Onset: 03-30-2022 Episodic Other aftercare (2 sources) Long-term current use of drug therapy; Translations: [Other snf (current) drug therapy] Onset: 10-17-2023 10-17-2023 Episodic Other bone disease and musculoskeletal deformities (10 sources) Avascular necrosis of bone of hip; Translations: [Idiopathic aseptic necrosis of left femur] Onset: 04-24-2019 Resolved: 10-17-2023 10-17-2023 Chronic Other gastrointestinal disorders (1 source) Diarrhea, unspecified; Translations: [DIARRHEA UNSPECIFIED] Onset: 03-30-2022 Episodic Other lower respiratory disease (1 source) Other disorders of lung; Translations: [OTHER DISORDERS OF LUNG] Onset: 04-07-2022 Episodic Other lower respiratory disease (1 source) Solitary pulmonary nodule; Translations: [SOLITARY PULMONARY NODULE] Onset: 03-30-2022 Episodic Other lower respiratory disease (5 sources) Dyspnea; Translations: [Shortness of breath] Onset: 10-17-2023 10-17-2023 Episodic Other nervous system disorders (5 sources) Walking disability; Translations: [Difficulty in walking, not elsewhere classified] Onset: 02-25-2023 Resolved: 10-17-2023 10-17-2023 Chronic Other nervous system disorders (5 sources) Difficulty walking; Translations: [Difficulty in walking, not elsewhere classified] Onset: 05-02-2023 Resolved: 10-17-2023 10-17-2023 Chronic Pleurisy; pneumothorax; pulmonary collapse (1 source) Pleurisy; [...] Value Interpretation Reference Range Facility Office Visiton 06-21-2024 Follow-up visit [id number] Francesca Jhaveri 1965 M Date Provider Department Center 06/21/2024 MauraKareemBROOKEGENESISDENVER [facility]ARD [facility] Family History Problem Relation Age of Onset Hypertension Father Family Status - Relation Status Age at Father Level of Service:02198 MT OFFICE/OUTPATIENT ESTABLISHED MOD MDM 30 MIN Reason for Visit and Comments: Coronary Artery Disease [187] Hypertension [372493] Normal [facility] ECHOCARDIO M/2D COMPLETEon 0 12-20-2022 ECHOCARDIO M/2D COMPLETE Patient: FRANCESCA JHAVERI. Exam Date: 12/20/2022 : 1965 Gender:M Ordering : [facility] Admission #: [id number] Family : DR RILEY MADRIGAL . Order #: [id number] CLICK HERE TO VIEW EXAM ECHOCARDIOGRAM REPORT [...] John Lucas M.D. on 12/21/2022 at 17:27 [facility] AUTO DIFFon 11-15-2022 BASO # 0.1 103/ul Normal 0.0-0.1 [facility] Comment on above: Performed By: #### A 1C #### [facility] [address] [address] [address] Fred Bell Basophils/100 WBC (Bld) 0.9 % Normal 0.2-2.0 [facility] Comment on above: Performed By: #### A 1C #### [facility] [address] [place] [address] Dr. Fred Bell EO # 0.3 103/ul Normal 0.0-0.7 [facility] Comment on above: Performed By: #### A 1C #### [facility] [address] [place] [address] Dr. Fred Bell Eosinophils/100 WBC (Bld) 2.9 % Normal 0.9-7.0 [facility] Comment on above: Performed By: #### A 1C #### [facility] [address] [place] [address] Dr. Fred Bell Erythrocyte distribution width (RBC) [Ratio] 14.3 % Normal 11.0-15.0 [facility] Comment on above: Performed By: #### A 1C #### [facility] [address] [place] [address] Dr. Fred Bell Hematocrit (Bld) [Volume fraction] 41.6 % Critically low 42.0-54.0 [facility] Comment on above: Performed By: #### A 1C #### [facility] [address] [place] [address] Dr. Fred Bell Hemoglobin (Bld) [Mass/Vol] 13.6 g/dL Critically low 14.0-18.0 [facility] Comment on above: Performed By: #### A 1C #### [facility] [address] [place] [address] Dr. Fred Bell IG # 0.03 10e3/ul Normal 0.00-0.03 [facility] Comment on above: Performed By: #### A 1C #### [facility] [address] [place] [address] Dr. Fred Bell IG % 0.4 % Normal 0.0-0.5 [facility] Comment on above: Performed By: #### A 1C #### [facility] [address] [place] [address] Dr. Fred Bell LYMPH # 2.0 103/ul Normal 1.2-3.8 [facility] Comment on above: Performed By: #### A 1C #### [facility] [address] [place] [address] Dr. Fred Bell Lymphocytes/100 WBC (Bld) 23.3 % Normal 20.5-60.0 [facility] Comment on above: Performed By: #### A 1C #### [facility] [address] [place] [address] Dr. Fred Bell MANUAL DIFF REQ NO Normal [facility] Comment on above: Performed By: #### A 1C #### [facility] [address] [place] [address] Dr. Fred Bell MCH (RBC) [Entitic mass] 29.8 pg Normal 25.9-34.0 [facility] Comment on above: Performed By: #### A 1C #### [facility] [address] [place] [address] Dr. Fred Bell MCHC (RBC) [Mass/Vol] 32.7 g/dL Normal 29.9-35.2 [facility] Comment on above: Performed By: #### A 1C #### [facility] [address] [place] [address] Dr. Fred Bell MCV (RBC) [Entitic vol] 91.0 fL Normal 80.0-94.0 [facility] Comment on above: Performed By: #### A 1C #### [facility] [address] [place] [address] Dr. Fred Bell MONO # 0.6 103/ul Normal 0.3-0.8 [facility] Comment on above: Performed By: #### A 1C #### [facility] [address] [place] [address] Dr. Fred Bell Monocytes/100 WBC (Bld) 6.7 % Normal 1.7-12.0 [facility] Comment on above: Performed By: #### A 1C #### [facility] [address] [place] [address] Dr. Fred Bell NEUT # 5.6 103/ul Normal 1.4-6.5 [facility] Comment on above: Performed By: #### A 1C #### [facility] [address] [place] [address] Dr. Fred Bell Neutrophils/100 WBC (Bld) 65.8 % Normal 43.0-75.0 [facility] Comment on above: Performed By: #### A 1C #### [facility] [address] [place] [address] Dr. Fred Bell Platelet mean volume (Bld) [Entitic vol] 9.7 fL Normal 9.5-13.5 [facility] Comment on above: Performed By: #### A 1C #### [facility] [address] [place] [address] Dr. Fred Bell PLT 289 103/ul Normal 150-450 [facility] Comment on above: Performed By: #### A 1C #### [facility] [address] [place] [address] Dr. Fred Bell RBC 4.57 106/ul Critically low 4.70-6.10 [facility] Comment on above: Performed By: #### A 1C #### [facility] [address] [place] [address] Dr. Fred Bell WBC 8.5 103/ul Normal 4.0-11.0 [facility] Comment on above: Performed By: #### A 1C #### [facility] [address] [place] [address] Dr. Fred Bell GLYCOHEMOGLOBIN A1Con 2022 ADA RECOMMENDATION SEE BELOW Normal [facility] Comment on above: Result Comment: ADA RECOMMENDED LIMIT 4.0 - 6.0 ADA THERAPEUTIC TARGET < 7.0 ACTION SUGGESTED > 7.0 Performed By: #### A 1C #### [facility] [address] [place] [address] Dr. Fred Bell Glucose [Mass/Vol] 111 mg/dL Normal [facility] Comment on above: Performed By: #### A 1C #### [facility] [address] [address] [address] Fred Bell HbA1c (Bld) [Mass fraction] 5.5 % Normal 4.5-6.2 [facility] Comment on above: Performed By: #### A 1C #### [facility] [address] [address] [address] Fred Bell LIPID PROFILEon 11-15-2022 CHOL-HDL RATIO NORM SEE BELOW Normal [facility] Comment on above: Result Comment: 3.3 - 4.4 LOW RISK 4.4 - 7.1 AVERAGE RISK 7.1 - 11.0 MODERATE RISK >11.0 HIGH RISK Performed By: #### V ANCT #### [facility] [address] [place] [address] Dr. Fred Bell Cholesterol [Mass/Vol] 210 mg/dL Critically high <=200 [facility] Comment on above: Performed By: #### V ANCT #### [facility] [address] [address] [address] Fred Bell Cholesterol in HDL [Mass/Vol] 101 mg/dL Critically high 40-60 [facility] Comment on above: Performed By: #### V ANCT #### [facility] [address] [address] [address] Fred Bell Cholesterol in LDL [Mass/Vol] 94.2 mg/dL Normal [facility] Comment on above: Performed By: #### V ANCT #### [facility] [address] [address] [address] Fred Bell Cholesterol.total/Ch olesterol in HDL [Mass ratio] 2.1 {ratio} Normal [facility] Comment on above: Performed By: #### V ANCT #### [facility] [address] [address] [address] Fred Bell HDL NORMAL > or = 60 mg/dl - LOW CARDIOVASCULAR RISK <40 mg/dl - HIGH CARDIOVASCULAR RISK Normal [facility] Comment on above: Performed By: #### V ANCT #### [facility] [address] [address] [address] Fred Bell LDL CALC NORMAL SEE BELOW Normal [facility] Comment on above: Result Comment: <100 mg/dl OPTIMAL 100 - 129 mg/dl NEAR OR ABOVE OPTIMAL 130 - 159 mg/dl BORDERLINE HIGH 160 - 189 mg/dl HIGH >190 mg/dl VERY HIGH Performed By: #### V ANCT #### [facility] [address] [address] [address] Fred Bell Triglyceride [Mass/Vol] 74 mg/dL Normal <=150 [facility] Comment on above: Performed By: #### V ANCT #### [facility] [address] [address] [address] Fred Bell VLDL CALC 14.8 mg/dL Normal [facility] Comment on above: Performed By: #### V ANCT #### [facility] [address] [address] [address] Fred Bell LIVER PROFILEon 11-15-2022 Albumin [Mass/Vol] 4.2 g/dL Normal 3.4-5.[address] [facility] Comment on above: Performed By: #### V ANCT #### [facility] [address] [address] [address] Fred Bell Albumin/Globulin [Mass ratio] 1.0 {ratio} Normal [facility] Comment on above: Performed By: #### V ANCT #### [facility] [address] [address] [address] Fred Bell ALP [Catalytic activity/Vol] 154 U/L Critically high 46-116 [facility] Comment on above: Performed By: #### V ANCT #### [facility] [address] [place] [address] Dr. Fred Bell ALT [Catalytic activity/Vol] 33 U/L Normal 16-63 [facility] Comment on above: Performed By: #### V ANCT #### [facility] [address] [place] [address] Dr. Fred Bell AST [Catalytic activity/Vol] 40 U/L Critically high 15-37 [facility] Comment on above: Performed By: #### V ANCT #### [facility] [address] [place] [address] Dr. Fred DANIELSI, CONJUGATED 0.2 mg/dL Normal 0.0-0.[address] [facility] Comment on above: Performed By: #### V ANCT #### [facility] [address] [place] [address] Dr. Fred Bell Bilirubin [Mass/Vol] 0.8 mg/dL Normal 0.2-1.0 [facility] Comment on above: Performed By: #### V ANCT #### [facility] [address] [place] [address] Dr. Fred Bell Globulin (S) [Mass/Vol] 4.1 g/dL Normal [facility] Comment on above: Performed By: #### V ANCT #### [facility] [address] [place] [address] Dr. Fred Bell Protein [Mass/Vol] 8.3 g/dL Critically high 6.4-8.2 [facility] Comment on above: Performed By: #### V ANCT #### [facility] [address] [place] [address] Dr. rFed Bell PROF CHEM 8 (BAS METB)on Anion gap [Moles/Vol] 14.5 mmol/L Normal [facility] Comment on above: Performed By: #### V ANCT #### [facility] [address] [place] [address] Dr. Fred Bell Calcium [Mass/Vol] 9.4 mg/dL Normal 8.5-10.[address] [facility] Comment on above: Performed By: #### V ANCT #### [facility] [address] [place] [address] Dr. Fred Bell Chloride [Moles/Vol] 104 mmol/L Normal 98-107 [facility] Comment on above: Performed By: #### V ANCT #### [facility] [address] [place] [address] Dr. Ferd Bell CO2 [Moles/Vol] 26.6 mmol/L Normal 21.0-32.[address] [facility] Comment on above: Performed By: #### V ANCT #### [facility] [address] [address] [address] Fred Bell Creatinine [Mass/Vol] 1.55 mg/dL Critically high 0.70-1.30 [facility] Comment on above: Performed By: #### V ANCT #### [facility] [address] [address] [address] Fred Bell EGFR-AF SAMMARINESE 56 mL/min/1.73m2 Critically low >=60 [facility] Comment on above: Performed By: #### V ANCT #### [facility] [address] [place] [address] Dr. Fred Bell EGFR-NON AF SAMMARINESE 47 mL/min/1.73m2 Critically low >=60 [facility] Comment on above: Performed By: #### V ANCT #### [facility] [address] [place] [address] Dr. Fred Bell Glucose [Mass/Vol] 95 mg/dL Normal 74-[address] [facility] Comment on above: Performed By: #### V ANCT #### [facility] [address] [place] [address] Dr. Fred Bell Potassium [Moles/Vol] 4.1 mmol/L Normal 3.5-5.1 [facility] Comment on above: Performed By: #### V ANCT #### [facility] [address] [address] [address] Fred Bell Sodium [Moles/Vol] 141 mmol/L Normal 136-[address] [facility] Comment on above: Performed By: #### V ANCT #### [facility] [address] [address] [address] Fred Bell Urea nitrogen [Mass/Vol] 23.0 mg/dL Critically high 7.0-18.0 [facility] Comment on above: Performed By: #### V ANCT #### [facility] [address] [place] [address] Dr. Fred Bell Urea nitrogen/Creatinine [Mass ratio] 14.8 mg/mg Normal [facility] Comment on above: Performed By: #### V ANCT #### [facility] [address] [place] [address] Dr. Fred Bell TSHon 11-15-2022 TSH 0.726 uIU/mL Normal 0.358-3.740 [facility] Comment on above: Performed By: #### V ANCT #### [facility] [address] [place] [address] Dr. Fred Bell VITAMIN D 25 OHon 11-15-2022 VIT D 25-OH 33.2 ng/mL Normal [facility] Comment on above: Performed By: #### V ANCT #### [facility] [address] [place] [address] Dr. Fred Bell VIT D RANGES SEE BELOW Normal [facility] Comment on above: Result Comment: <20 ng/mL Vit D deficient 20 - <30 ng/mL Vit D insufficient 30 - 100 ng/mL Vit D sufficient >100 ng/mL Potential Toxicity Performed By: #### V ANCT #### [facility] [address] [place] [address] Dr. Fred Bell COVID Quick Testingon 2021 Result Positive ZAO Begun Other ACID FAST SMEAR AND CXon Acid Fast Culture Negative Normal [facility] Comment on above: Result Comment: No a raven fast bacilli isolated after 6 weeks. Performed By: #### B MP #### [facility] [address] [place] [address] Dr. Fred Bell Acid Fast Smear Negative Normal [facility] Comment on above: Performed By: #### B MP #### [facility] [address] [place] [address] Dr. Fred Bell AFB Specimen Processing Concentration Normal [facility] Comment on above: Performed By: #### B MP #### [facility] [address] [place] [address] Dr. Fred eBll FUNGAL CULTUREon 04-14-2022 Fungus (Mycology) Culture Final report Normal [facility] Comment on above: Performed By: #### B MP #### [facility] [address] [place], [place] [address] Dr. Fred Bell Fungus Stain Final report Normal [facility] Comment on above: Performed By: #### B MP #### [facility] [address] [place], [place] [address] Dr. Fred Bell Result [address] [facility] Comment on above: Result Comment: ELIE/ Calcofluor preparation: no fungus observed. Performed By: #### B MP #### [facility] [address] [place], [place] [address] Dr. Fred Bell Result Comment: No y [...] by: FRANCESCA BUENO Date: 2022-04-05 22:[address] [facility] CREATININEon 04-05-2022 Creatinine [Mass/Vol] 1.80 mg/dL Critically high 0.70-1.30 [facility] Comment on above: Performed By: #### P OCGLUC #### [facility] [address] [place] [address] Dr. Fred Bell EGFR-AF SAMMARINESE 48 mL/min/1.73m2 Critically low >=60 [facility] Comment on above: Performed By: #### P OCGLUC #### [facility] [address] [place] [address] Dr. Fred Bell EGFR-NON AF SAMMARINESE 39 mL/min/1.73m2 Critically low >=60 [facility] Comment on above: Performed By: #### P OCGLUC #### [facility] [address] [place] [address] Dr. Fred Bell BUNon 03-30-2022 Urea nitrogen [Mass/Vol] 22.0 mg/dL Critically high 7.0-18.0 [facility] Comment on above: Performed By: #### B MP #### [facility] [address] [place] [address] Dr. Fred Bell CBC AUTO DIFFon 03-30-2022 BASO # 0.2 103/ul Critically high 0.0-0.1 [facility] Comment on above: Performed By: #### C DIFPOC #### [facility] [address] [place] [address] Dr. Fred Bell Basophils/100 WBC (Bld) 1.8 % Normal 0.2-2.0 [facility] Comment on above: Performed By: #### C DIFPOC #### [facility] [address] [place] [address] Dr. Fred Bell EO # 0.6 103/ul Normal 0.0-0.7 [facility] Comment on above: Performed By: #### C DIFPOC #### [facility] [address] [place] [address] Dr. Fred Bell Eosinophils/100 WBC (Bld) 4.8 % Normal 0.9-7.0 [facility] Comment on above: Performed By: #### C DIFPOC #### [facility] [address] [address] [address] Fred Bell Erythrocyte distribution width (RBC) [Ratio] 17.7 % Critically high 11.0-15.0 [facility] Comment on above: Performed By: #### C DIFPOC #### [facility] [address] [place] [address] Dr. Fred Bell Hematocrit (Bld) [Volume fraction] 27.0 % Critically low 42.0-54.0 [facility] Comment on above: Performed By: #### C DIFPOC #### [facility] [address] [place] [address] Dr. Fred Bell Hemoglobin (Bld) [Mass/Vol] 8.4 g/dL Critically low 14.0-18.0 [facility] Comment on above: Performed By: #### C DIFPOC #### [facility] [address] [place] [address] Dr. Fred Bell IG # 0.04 10e3/ul Critically high 0.00-0.03 [facility] Comment on above: Performed By: #### C DIFPOC #### [facility] [address] [place] [address] Dr. Fred Bell IG % 0.3 % Normal 0.0-0.5 [facility] Comment on above: Performed By: #### C DIFPOC #### [facility] [address] [place] [address] Dr. Fred Bell LYMPH # 2.1 103/ul Normal 1.2-3.8 [facility] Comment on above: Performed By: #### C DIFPOC #### [facility] [address] [place] [address] Dr. Fred Bell Lymphocytes/100 WBC (Bld) 17.2 % Critically low 20.5-60.0 [facility] Comment on above: Performed By: #### C DIFPOC #### [facility] [address] [place] [address] Dr. Fred Bell MANUAL DIFF REQ NO Normal [facility] Comment on above: Performed By: #### C DIFPOC #### [facility] [address] [place] [address] Dr. Fred Bell MCH (RBC) [Entitic mass] 27.9 pg Normal 25.9-34.0 [facility] Comment on above: Performed By: #### C DIFPOC #### [facility] [address] [place] [address] Dr. Fred Bell MCHC (RBC) [Mass/Vol] 31.1 g/dL Normal 29.9-35.2 [facility] Comment on above: Performed By: #### C DIFPOC #### [facility] [address] [place] [address] Dr. Fred Bell MCV (RBC) [Entitic vol] 89.7 fL Normal 80.0-94.0 [facility] Comment on above: Performed By: #### C DIFPOC #### [facility] [address] [place] [address] Dr. Fred Bell MONO # 0.6 103/ul Normal 0.3-0.8 [facility] Comment on above: Performed By: #### C DIFPOC #### [facility] [address] [place] [address] Dr. Fred Bell Monocytes/100 WBC (Bld) 5.1 % Normal 1.7-12.0 [facility] Comment on above: Performed By: #### C DIFPOC #### [facility] [address] [place] [address] Dr. Fred Bell NEUT # 8.5 103/ul Critically high 1.4-6.5 [facility] Comment on above: Performed By: #### C DIFPOC #### [facility] [address] [place] [address] Dr. Fred Bell Neutrophils/100 WBC (Bld) 70.8 % Normal 43.0-75.0 [facility] Comment on above: Performed By: #### C DIFPOC #### [facility] [address] [place] [address] Dr. Fred Bell Platelet mean volume (Bld) [Entitic vol] 9.1 fL Critically low 9.5-13.5 [facility] Comment on above: Performed By: #### C DIFPOC #### [facility] [address] [address] [address] Fred Bell PLT 599 103/ul Critically high 150-450 [facility] Comment on above: Performed By: #### C DIFPOC #### [facility] [address] [address] [address] Fred Bell RBC 3.01 106/ul Critically low 4.70-6.10 [facility] Comment on above: Performed By: #### C DIFPOC #### [facility] [address] [place] [address] Dr. Fred Bell WBC 11.9 103/ul Critically high 4.0-11.[address] [facility] Comment on above: Performed By: #### C DIFPOC #### [facility] [address] [place] [address] Dr. Fred Bell CREATININEon 03-30-2022 Creatinine [Mass/Vol] 1.89 mg/dL Critically high 0.70-1.30 [facility] Comment on above: Performed By: #### B MP #### [facility] [address] [place] [address] Dr. Fred Bell EGFR-AF SAMMARINESE 45 mL/min/1.73m2 Critically low >=60 [facility] Comment on above: Performed By: #### B MP #### [facility] [address] [place] [address] Dr. Fred Bell EGFR-NON AF SAMMARINESE 37 mL/min/1.73m2 Critically low >=60 [facility] Comment on above: Performed By: #### B MP #### [facility] [address] [place] [address] Dr. Fred Bell VANCOMYCIN TROUGHon 03-30-20 VANCOMYCIN TROUGH 13.5 ug/ml Normal 5.0-20.0 [facility] Comment on above: Performed By: #### A 1C #### [facility] [address] [address] [address] Fred Bell CREATININEon 03-25-2022 Creatinine [Mass/Vol] 1.88 mg/dL Critically high 0.70-1.30 [facility] Comment on above: Performed By: #### P OCGLUC #### [facility] [address] [place] [address] Dr. Fred Bell EGFR-AF SAMMARINESE 45 mL/min/1.73m2 Critically low >=60 [facility] Comment on above: Performed By: #### P OCGLUC #### [facility] [address] [place] [address] Dr. Fred Bell EGFR-NON AF SAMMARINESE 37 mL/min/1.73m2 Critically low >=60 [facility] Comment on above: Performed By: #### P OCGLUC #### [facility] [address] [place] [address] Dr. Fred Bell VANCOMYCIN RANDOMon 03-25-20 22 VANCOMYCIN RANDOM 17.6 ug/ml Normal [facility] Comment on above: Performed By: #### V ANCT #### [facility] [address] [place] [address] Dr. Fred Bell CBC AUTO DIFFon 03-23-2022 BASO # 0.2 103/ul Critically high 0.0-0.1 [facility] Comment on above: Performed By: #### P OCGLUC #### [facility] [address] [place] [address] Dr. Fred Bell Basophils/100 WBC (Bld) 0.8 % Normal 0.2-2.0 [facility] Comment on above: Performed By: #### P OCGLUC #### [facility] [address] [place] [address] Dr. Fred Bell EO # 0.6 103/ul Normal 0.0-0.7 [facility] Comment on above: Performed By: #### P OCGLUC #### [facility] [address] [place] [address] Dr. Fred Bell Eosinophils/100 WBC (Bld) 3.0 % Normal 0.9-7.0 [facility] Comment on above: Performed By: #### P OCGLUC #### [facility] [address] [address] [address] Fred Bell Erythrocyte distribution width (RBC) [Ratio] 16.5 % Critically high 11.0-15.0 [facility] Comment on above: Performed By: #### P OCGLUC #### [facility] [address] [place] [address] Dr. Fred Bell Hematocrit (Bld) [Volume fraction] 26.9 % Critically low 42.0-54.0 [facility] Comment on above: Performed By: #### P OCGLUC #### [facility] [address] [place] [address] Dr. Fred Bell Hemoglobin (Bld) [Mass/Vol] 8.0 g/dL Critically low 14.0-18.0 [facility] Comment on above: Performed By: #### P OCGLUC #### [facility] [address] [place] [address] Dr. Fred Bell IG # 0.33 10e3/ul Critically high 0.00-0.03 [facility] Comment on above: Performed By: #### P OCGLUC #### [facility] [address] [place] [address] Dr. Fred Bell IG % 1.8 % Critically high 0.0-0.5 [facility] Comment on above: Performed By: #### P OCGLUC #### [facility] [address] [place] [address] Dr. Fred Bell LYMPH # 2.1 103/ul Normal 1.2-3.8 [facility] Comment on above: Performed By: #### P OCGLUC #### [facility] [address] [place] [address] Dr. Fred Bell Lymphocytes/100 WBC (Bld) 11.1 % Critically low 20.5-60.0 [facility] Comment on above: Performed By: #### P OCGLUC #### [facility] [address] [place] [address] Dr. Fred Bell MANUAL DIFF REQ NO Normal [facility] Comment on above: Performed By: #### P OCGLUC #### [facility] [address] [address] [address] Fred Bell MCH (RBC) [Entitic mass] 26.8 pg Normal 25.9-34.0 [facility] Comment on above: Performed By: #### P OCGLUC #### [facility] [address] [address] [address] Fred Bell MCHC (RBC) [Mass/Vol] 29.7 g/dL Critically low 29.9-35.2 [facility] Comment on above: Performed By: #### P OCGLUC #### [facility] [address] [address] [address] Fred Bell MCV (RBC) [Entitic vol] 90.0 fL Normal 80.0-94.0 [facility] Comment on above: Performed By: #### P OCGLUC #### [facility] [address] [address] [address] Fred Bell MONO # 1.0 103/ul Critically high 0.3-0.8 [facility] Comment on above: Performed By: #### P OCGLUC #### [facility] [address] [address] [address] Fred Bell Monocytes/100 WBC (Bld) 5.2 % Normal 1.7-12.0 [facility] Comment on above: Performed By: #### P OCGLUC #### [facility] [address] [address] [address] Fred Bell NEUT # 14.5 103/ul Critically high 1.4-6.[address] [facility] Comment on above: Performed By: #### P OCGLUC #### [facility] [address] [address] [address] Fred Bell Neutrophils/100 WBC (Bld) 78.1 % Critically high 43.0-75.0 [facility] Comment on above: Performed By: #### P OCGLUC #### [facility] [address] [address] [address] Fred Bell Platelet mean volume (Bld) [Entitic vol] 8.9 fL Critically low 9.5-13.5 [facility] Comment on above: Performed By: #### P OCGLUC #### [facility] [address] [place] [address] Dr. Fred Bell PLT 705 103/ul Critically high 150-450 [facility] Comment on above: Performed By: #### P OCGLUC #### [facility] [address] [place] [address] Dr. Fred Bell RBC 2.99 106/ul Critically low 4.70-6.10 [facility] Comment on above: Performed By: #### P OCGLUC #### [facility] [address] [place] [address] Dr. Fred Bell WBC 18.5 103/ul Critically high 4.0-11.[address] [facility] Comment on above: Performed By: #### P OCGLUC #### [facility] [address] [place] [address] Dr. Fred Bell CREATININEon 03-23-2022 Creatinine [Mass/Vol] 1.88 mg/dL Critically high 0.70-1.30 [facility] Comment on above: Performed By: #### C DIFPOC #### [facility] [address] [place] [address] Dr. Fred Bell EGFR-AF SAMMARINESE 45 mL/min/1.73m2 Critically low >=60 [facility] Comment on above: Performed By: #### C DIFPOC #### [facility] [address] [place] [address] Dr. Fred Bell EGFR-NON AF SAMMARINESE 37 mL/min/1.73m2 Critically low >=60 [facility] Comment on above: Performed By: #### C DIFPOC #### [facility] [address] [place] [address] Dr. Fred Bell VANCOMYCIN TROUGHon 03-23-20 VANCOMYCIN TROUGH 25.7 ug/ml Critically high 5.0-20.0 [facility] Comment on above: Performed By: #### V ANCT #### [facility] [address] [place] [address] Dr. Fred Bell CBC AUTO DIFFon 03-19-2022 BASO # 0.1 103/ul Normal 0.0-0.1 [facility] Comment on above: Performed By: #### C BC #### [facility] [address] [address] [address] Fred Bell Basophils/100 WBC (Bld) 0.3 % Normal 0.2-2.0 [facility] Comment on above: Performed By: #### C BC #### [facility] [address] [address] [address] Fred Bell EO # 0.4 103/ul Normal 0.0-0.7 [facility] Comment on above: Performed By: #### C BC #### [facility] [address] [place] [address] Dr. Fred Bell Eosinophils/100 WBC (Bld) 1.7 % Normal 0.9-7.0 [facility] Comment on above: Performed By: #### C BC #### [facility] [address] [place] [address] Dr. Fred Bell Erythrocyte distribution width (RBC) [Ratio] 16.4 % Critically high 11.0-15.0 [facility] Comment on above: Performed By: #### C BC #### [facility] [address] [place] [address] Dr. Fred Bell Hematocrit (Bld) [Volume fraction] 34.0 % Critically low 42.0-54.0 [facility] Comment on above: Performed By: #### C BC #### [facility] [address] [place] [address] Dr. Fred Bell Hemoglobin (Bld) [Mass/Vol] 10.1 g/dL Critically low 14.0-18.0 [facility] Comment on above: Performed By: #### C BC #### [facility] [address] [place] [address] Dr. Fred Bell IG # 0.17 10e3/ul Critically high 0.00-0.03 [facility] Comment on above: Performed By: #### C BC #### [facility] [address] [place] [address] Dr. Fred Bell IG % 0.8 % Critically high 0.0-0.5 [facility] Comment on above: Performed By: #### C BC #### [facility] [address] [place] [address] Dr. Fred Bell LYMPH # 2.0 103/ul Normal 1.2-3.8 [facility] Comment on above: Performed By: #### C BC #### [facility] [address] [place] [address] Dr. Fred Bell Lymphocytes/100 WBC (Bld) 8.9 % Critically low 20.5-60.0 [facility] Comment on above: Performed By: #### C BC #### [facility] [address] [place] [address] Dr. Fred Bell MANUAL DIFF REQ NO Normal [facility] Comment on above: Performed By: #### C BC #### [facility] [address] [place] [address] Dr. Fred Bell MCH (RBC) [Entitic mass] 26.8 pg Normal 25.9-34.0 [facility] Comment on above: Performed By: #### C BC #### [facility] [address] [place] [address] Dr. Fred Bell MCHC (RBC) [Mass/Vol] 29.7 g/dL Critically low 29.9-35.2 [facility] Comment on above: Performed By: #### C BC #### [facility] [address] [place] [address] Dr. Fred Bell MCV (RBC) [Entitic vol] 90.2 fL Normal 80.0-94.0 [facility] Comment on above: Performed By: #### C BC #### [facility] [address] [place] [address] Dr. Fred Bell MONO # 1.5 103/ul Critically high 0.3-0.8 [facility] Comment on above: Performed By: #### C BC #### [facility] [address] [place] [address] Dr. Fred Bell Monocytes/100 WBC (Bld) 6.7 % Normal 1.7-12.0 [facility] Comment on above: Performed By: #### C BC #### [facility] [address] [address] [address] Fred Bell NEUT # 18.0 103/ul Critically high 1.4-6.5 [facility] Comment on above: Performed By: #### C BC #### [facility] [address] [place] [address] Dr. Fred eBll Neutrophils/100 WBC (Bld) 81.6 % Critically high 43.0-75.0 [facility] Comment on above: Performed By: #### C BC #### [facility] [address] [place] [address] Dr. Fred Bell Platelet mean volume (Bld) [Entitic vol] 8.7 fL Critically low 9.5-13.5 [facility] Comment on above: Performed By: #### C BC #### [facility] [address] [place] [address] Dr. Fred Bell PLT 552 103/ul Critically high 150-450 [facility] Comment on above: Performed By: #### C BC #### [facility] [address] [place] [address] Dr. Fred Bell RBC 3.77 106/ul Critically low 4.70-6.10 [facility] Comment on above: Performed By: #### C BC #### [facility] [address] [place] [address] Dr. Fred Bell WBC 22.1 103/ul Critically high 4.0-11.0 [facility] Comment on above: Performed By: #### C BC #### [facility] [address] [place] [address] Dr. Fred Bell LOWER RESPIRATORY CULTUREon 03-19-2022 Lower Respiratory Culture Final report Normal [facility] Comment on above: Performed By: #### A 1C #### [facility] [address] [place] [address] Dr. Fred Bell Result [address] [facility] Comment on above: Result Comment: Rout ine respiratory kathya Performed By: #### A 1C #### [facility] [address] [address] [address] Fred Bell POINT OF CARE GLUCOSEon 02-25 Glucose [Mass/Vol] 114 mg/dL Critically high 74-[address] [facility] Comment on above: Performed By: #### C BC #### [facility] [address] [place] [address] Dr. Fred Bell PROF CHEM 8 (BAS METB)on Anion gap [Moles/Vol] 14.5 mmol/L Normal [facility] Comment on above: Performed By: #### B MP #### [facility] [address] [place] [address] Dr. Fred Bell Calcium [Mass/Vol] 8.8 mg/dL Normal 8.5-10.[address] [facility] Comment on above: Performed By: #### B MP #### [facility] [address] [place] [address] Dr. Fred Bell Chloride [Moles/Vol] 108 mmol/L Critically high 98-107 [facility] Comment on above: Performed By: #### B MP #### [facility] [address] [place] [address] Dr. Fred Bell CO2 [Moles/Vol] 24.4 mmol/L Normal 21.0-32.[address] [facility] Comment on above: Performed By: #### B MP #### [facility] [address] [place] [address] Dr. Fred Bell Creatinine [Mass/Vol] 1.38 mg/dL Critically high 0.70-1.30 [facility] Comment on above: Performed By: #### B MP #### [facility] [address] [place] [address] Dr. Fred Bell EGFR-AF SAMMARINESE >60 Normal >=[address] [facility] Comment on above: Performed By: #### B MP #### [facility] [address] [place] [address] Dr. Fred Bell EGFR-NON AF SAMMARINESE 53 mL/min/1.73m2 Critically low >=60 [facility] Comment on above: Performed By: #### B MP #### [facility] [address] [address] [address] Fred Bell Glucose [Mass/Vol] 82 mg/dL Normal 74-[address] [facility] Comment on above: Performed By: #### B MP #### [facility] [address] [address] [address] Fred Bell Potassium [Moles/Vol] 3.9 mmol/L Normal 3.5-5.1 [facility] Comment on above: Performed By: #### B MP #### [facility] [address] [place] [address] Dr. Fred Bell Sodium [Moles/Vol] 143 mmol/L Normal 136-[address] [facility] Comment on above: Performed By: #### B MP #### [facility] [address] [place] [address] Dr. Fred Bell Urea nitrogen [Mass/Vol] 11.0 mg/dL Normal 7.0-18.0 [facility] Comment on above: Performed By: #### B MP #### [facility] [address] [place] [address] Dr. Fred Bell Urea nitrogen/Creatinine [Mass ratio] 8.0 mg/mg Normal [facility] Comment on above: Performed By: #### B MP #### [facility] [address] [place] [address] Dr. Fred Bell VANCOMYCIN TROUGHon 03-19-20 22 VANCOMYCIN TROUGH 22.8 ug/ml Critically high 5.0-20.0 [facility] Comment on above: Performed By: #### A 1C #### [facility] [address] [place] [address] Dr. Fred Bell C. DIFF PCRon 03-18-2022 C. DIFFICILE PCR Negative Normal NEGATIVE [facility] Comment on above: Performed By: #### C DIFPOC #### [facility] [address] [place] [address] Dr. Fred Bell CBC W MANUAL DIFFon 03-18-20 22 ATYPICAL LYMPH # Normal [facility] Comment on above: Performed By: #### C BC #### [facility] [address] [place] [address] Dr. Fred Bell ATYPICAL LYMPH % Normal [facility] Comment on above: Performed By: #### C BC #### [facility] [address] [place] [address] Dr. Fred Bell BAND # Normal 0.0-0.3 [facility] Comment on above: Performed By: #### C BC #### [facility] [address] [place] [address] Dr. Fred Bell BAND % Normal 0-5 [facility] Comment on above: Performed By: #### C BC #### [facility] [address] [place] [address] Dr. Fred Bell BASOM # 0.00 103/ul Normal 0.00-0.10 [facility] Comment on above: Performed By: #### C BC #### [facility] [address] [place] [address] Dr. Fred Bell BASOM % 0.0 % Critically low 0.2-2.0 [facility] Comment on above: Performed By: #### C BC #### [facility] [address] [place] [address] Dr. Fred Bell BLAST # Normal [facility] Comment on above: Performed By: #### C BC #### [facility] [address] [place] [address] Dr. Fred Bell BLAST % Normal [facility] Comment on above: Performed By: #### C BC #### [facility] [address] [place] [address] Dr. Fred Bell CORRECTED WBC Normal 4.0-11.0 [facility] Comment on above: Performed By: #### C BC #### [facility] [address] [place] [address] Dr. Fred Bell EOS # 0.00 103/ul Normal 0.00-0.70 [facility] Comment on above: Performed By: #### C BC #### [facility] [address] [address] [address] Fred Bell EOS% 0.0 % Critically low 0.9-7.0 [facility] Comment on above: Performed By: #### C BC #### [facility] [address] [address] [address] Fred Bell HCT 28.1 % Critically low 42.0-54.0 [facility] Comment on above: Performed By: #### C BC #### [facility] [address] [place] [address] Dr. Fred Bell HGB 8.4 g/dl Critically low 14.0-18.0 [facility] Comment on above: Performed By: #### C BC #### [facility] [address] [place] [address] Dr. Fred Blel HYPERSEG NEUT 2+ Normal [facility] Comment on above: Performed By: #### C BC #### [facility] [address] [place] [address] Dr. Fred Bell HYPOCHROMASIA 2+ Normal [facility] Comment on above: Performed By: #### C BC #### [facility] [address] [place] [address] Dr. Fred Bell LYMPHM # 0.77 103/ul Critically low 1.20-3.80 [facility] Comment on above: Performed By: #### C BC #### [facility] [address] [place] [address] Dr. Fred Bell LYMPHM% 3.0 % Critically low 20.5-60.0 [facility] Comment on above: Performed By: #### C BC #### [facility] [address] [place] [address] Dr. Fred Bell MCH 26.8 pg Normal 25.9-34.0 [facility] Comment on above: Performed By: #### C BC #### [facility] [address] [place] [address] Dr. Fred Bell MCHC 29.9 g/dl Normal 29.9-35.2 [facility] Comment on above: Performed By: #### C BC #### [facility] [address] [address] [address] Fred Bell MCV 89.5 fL Normal 80.0-94.0 [facility] Comment on above: Performed By: #### C BC #### [facility] [address] [place] [address] Dr. Fred Bell METAMYELOCYTE # Normal [facility] Comment on above: Performed By: #### C BC #### [facility] [address] [place] [address] Dr. Fred Bell METAMYELOCYTE % Normal [facility] Comment on above: Performed By: #### C BC #### [facility] [address] [place] [address] Dr. Fred Bell MONOM# 1.02 103/ul Critically high 0.30-0.[address] [facility] Comment on above: Performed By: #### C BC #### [facility] [address] [place] [address] Dr. Fred Bell MONOM% 4.0 % Normal 1.7-12.0 [facility] Comment on above: Performed By: #### C BC #### [facility] [address] [place] [address] Dr. Fred Bell MPV 8.6 fL Critically low 9.5-13.5 [facility] Comment on above: Performed By: #### C BC #### [facility] [address] [place] [address] Dr. Fred Bell MYELOCYTE # Normal [facility] Comment on above: Performed By: #### C BC #### [facility] [address] [place] [address] Dr. Fred Bell MYELOCYTE % Normal [facility] Comment on above: Performed By: #### C BC #### [facility] [address] [place] [address] Dr. Fred Bell NRBC Normal [facility] Comment on above: Performed By: #### C BC #### [facility] [address] [address] [address] Fred Bell PLT 530 103/ul Critically high 150-450 [facility] Comment on above: Performed By: #### C BC #### [facility] [address] [place] [address] Dr. Fred Bell RBC 3.14 106/ul Critically low 4.70-6.10 [facility] Comment on above: Performed By: #### C BC #### [facility] [address] [place] [address] Dr. Fred Bell RDW 16.5 % Critically high 11.0-15.0 [facility] Comment on above: Performed By: #### C BC #### [facility] [address] [place] [address] Dr. Fred Bell SEG # 23.71 103/ul Critically high 1.40-6.50 [facility] Comment on above: Performed By: #### C BC #### [facility] [address] [place] [address] Dr. Fred Bell SEG % 93.0 % Critically high 43.0-75.0 [facility] Comment on above: Performed By: #### C BC #### [facility] [address] [place], [place] [id number] Dr. Fred Bell WBC 25.5 103/ul Critically high 4.0-11.[address] [facility] Comment on above: Performed By: #### C BC #### [facility] [address] [place] [address] CHEST WO CONon [...] DEEDEE LIZARRAGA Date: 2022-03-18 13:[address] [facility] POINT OF CARE GLUCOSEon 02-25 Glucose [Mass/Vol] 96 mg/dL Normal 74-[address] [facility] Comment on above: Performed By: #### A 1C #### [facility] [address] [address] [address] Fred Bell Glucose [Mass/Vol] 82 mg/dL Normal 74-[address] [facility] Comment on above: Performed By: #### B MP #### [facility] [address] [address] [address] Fred Bell Glucose [Mass/Vol] 119 mg/dL Critically high 74-106 [facility] Comment on above: Performed By: #### P OCGLUC #### [facility] [address] [address] [address] Fred Bell Glucose [Mass/Vol] 110 mg/dL Critically high 74-106 [facility] Comment on above: Performed By: #### P OCGLUC #### [facility] [address] [address] [address] Fred Bell PROF CHEM 8 (BAS METB)on Anion gap [Moles/Vol] 13.8 mmol/L Normal [facility] Comment on above: Performed By: #### V ANCT #### [facility] [address] [address] [address] Fred Bell Calcium [Mass/Vol] 8.3 mg/dL Critically low 8.5-10.1 [facility] Comment on above: Performed By: #### V ANCT #### [facility] [address] [address] [address] Fred Bell Chloride [Moles/Vol] 110 mmol/L Critically high 98-107 [facility] Comment on above: Performed By: #### V ANCT #### [facility] [address] [address] [address] Fred Bell CO2 [Moles/Vol] 22.0 mmol/L Normal 21.0-32.[address] [facility] Comment on above: Performed By: #### V ANCT #### [facility] [address] [address] [address] Fred Bell Creatinine [Mass/Vol] 1.36 mg/dL Critically high 0.70-1.30 [facility] Comment on above: Performed By: #### V ANCT #### [facility] [address] [address] [address] Fred Bell EGFR-AF SAMMARINESE >60 Normal >=60 [facility] Comment on above: Performed By: #### V ANCT #### [facility] [address] [address] [address] Fred Bell EGFR-NON AF SAMMARINESE 54 mL/min/1.73m2 Critically low >=60 [facility] Comment on above: Performed By: #### V ANCT #### [facility] [address] [address] [address] Fred Bell Glucose [Mass/Vol] 173 mg/dL Critically high 74-106 [facility] Comment on above: Performed By: #### V ANCT #### [facility] [address] [address] [address] Fred Bell Potassium [Moles/Vol] 3.8 mmol/L Normal 3.5-5.1 [facility] Comment on above: Performed By: #### V ANCT #### [facility] [address] [address] [address] Fred Bell Sodium [Moles/Vol] 142 mmol/L Normal 136-[address] [facility] Comment on above: Performed By: #### V ANCT #### [facility] [address] [address] [address] Fred Bell Urea nitrogen [Mass/Vol] 13.0 mg/dL Normal 7.0-18.0 [facility] Comment on above: Performed By: #### V ANCT #### [facility] [address] [place] [address] Dr. Fred Bell Urea nitrogen/Creatinine [Mass ratio] 9.6 mg/mg Normal [facility] Comment on above: Performed By: #### V ANCT #### [facility] [address] [place] [address] Dr. Fred Bell SPUTUM CULTUREon 03-18-2022 Epithelial cells LM Ql (Urine sed) None seen Normal [facility] Comment on above: Performed By: #### P OCGLUC #### [facility] [address] [place] [address] Dr. Fred Bell Gram Stain Evaluation Comment Normal [facility] Comment on above: Result Comment: This specimen is of good quality and is acceptable for routine bacterial culture. Performed By: #### P OCGLUC #### [facility] [address] [place] [address] Dr. Fred Bell Lower Respiratory Culture Final report Normal [facility] Comment on above: Performed By: #### P OCGLUC #### [facility] [address] [place] [address] Dr. Fred Bell Result 1 TNP Normal [facility] Comment on above: Result Comment: Test not performed Performed By: #### P OCGLUC #### [facility] [address] [place] [address] Dr. Fred Bell Result 1 Comment Normal [facility] Comment on above: Result Comment: Rout ine respiratory kathya Performed By: #### P OCGLUC #### [facility] [address] [place] [address] Dr. Fred Bell Result 2 Normal [facility] Comment on above: Performed By: #### P OCGLUC #### [facility] [address] [place] [address] Dr. Fred Bell Result 3 Normal [facility] Comment on above: Performed By: #### P OCGLUC #### [facility] [address] [place] [address] Dr. Fred Bell Result 4 Normal [facility] Comment on above: Performed By: #### P OCGLUC #### [facility] [address] [place] [address] Dr. Fred Bell White Blood Cells None seen Normal [facility] Comment on above: Performed By: #### P OCGLUC #### [facility] [address] [place] [address] Dr. Fred Bell XR CHEST 1 Von [...] BRANDON PRADO Date: 2022-03-18 08:28 Normal [facility] CBC AUTO DIFFon 03-17-2022 BASO # 0.0 103/ul Normal 0.0-0.1 [facility] Comment on above: Performed By: #### A 1C #### [facility] [address] [place] [address] Dr. Fred Bell Basophils/100 WBC (Bld) 0.1 % Critically low 0.2-2.0 [facility] Comment on above: Performed By: #### A 1C #### [facility] [address] [place] [address] Dr. Fred Bell EO # 0.0 103/ul Normal 0.0-0.7 [facility] Comment on above: Performed By: #### A 1C #### [facility] [address] [place] [address] Dr. Fred Bell Eosinophils/100 WBC (Bld) 0.0 % Critically low 0.9-7.0 [facility] Comment on above: Performed By: #### A 1C #### [facility] [address] [place] [address] Dr. Fred Bell Erythrocyte distribution width (RBC) [Ratio] 16.3 % Critically high 11.0-15.0 [facility] Comment on above: Performed By: #### A 1C #### [facility] [address] [place] [address] Dr. Fred Bell Hematocrit (Bld) [Volume fraction] 29.8 % Critically low 42.0-54.0 [facility] Comment on above: Performed By: #### A 1C #### [facility] [address] [place] [address] Dr. Fred Bell Hemoglobin (Bld) [Mass/Vol] 9.1 g/dL Critically low 14.0-18.0 [facility] Comment on above: Performed By: #### A 1C #### [facility] [address] [place] [address] Dr. Fred Bell IG # 0.16 10e3/ul Critically high 0.00-0.03 [facility] Comment on above: Performed By: #### A 1C #### [facility] [address] [place] [address] Dr. Fred Bell IG % 0.8 % Critically high 0.0-0.5 [facility] Comment on above: Performed By: #### A 1C #### [facility] [address] [place] [address] Dr. Fred Bell LYMPH # 0.8 103/ul Critically low 1.2-3.8 [facility] Comment on above: Performed By: #### A 1C #### [facility] [address] [place] [address] Dr. Fred Bell Lymphocytes/100 WBC (Bld) 4.1 % Critically low 20.5-60.0 [facility] Comment on above: Performed By: #### A 1C #### [facility] [address] [place] [address] Dr. Fred Bell MANUAL DIFF REQ NO Normal [facility] Comment on above: Performed By: #### A 1C #### [facility] [address] [place] [address] Dr. Fred Bell MCH (RBC) [Entitic mass] 27.3 pg Normal 25.9-34.0 [facility] Comment on above: Performed By: #### A 1C #### [facility] [address] [place] [address] Dr. Fred Bell MCHC (RBC) [Mass/Vol] 30.5 g/dL Normal 29.9-35.2 [facility] Comment on above: Performed By: #### A 1C #### [facility] [address] [place] [address] Dr. Fred Bell MCV (RBC) [Entitic vol] 89.5 fL Normal 80.0-94.0 [facility] Comment on above: Performed By: #### A 1C #### [facility] [address] [place] [address] Dr. Fred Bell MONO # 0.3 103/ul Normal 0.3-0.8 [facility] Comment on above: Performed By: #### A 1C #### [facility] [address] [place] [address] Dr. Fred Bell Monocytes/100 WBC (Bld) 1.5 % Critically low 1.7-12.0 [facility] Comment on above: Performed By: #### A 1C #### [facility] [address] [place] [address] Dr. Fred Bell NEUT # 18.5 103/ul Critically high 1.4-6.[address] [facility] Comment on above: Performed By: #### A 1C #### [facility] [address] [place] [address] Dr. Fred Bell Neutrophils/100 WBC (Bld) 93.5 % Critically high 43.0-75.0 [facility] Comment on above: Performed By: #### A 1C #### [facility] [address] [place] [address] Dr. Fred Bell Platelet mean volume (Bld) [Entitic vol] 8.6 fL Critically low 9.5-13.5 [facility] Comment on above: Performed By: #### A 1C #### [facility] [address] [place] [address] Dr. Fred Bell PLT 445 103/ul Normal 150-450 [facility] Comment on above: Performed By: #### A 1C #### [facility] [address] [address] [address] Fred Bell RBC 3.33 106/ul Critically low 4.70-6.10 [facility] Comment on above: Performed By: #### A 1C #### [facility] [address] [address] [address] Fred Bell WBC 19.8 103/ul Critically high 4.0-11.[address] [facility] Comment on above: Performed By: #### A 1C #### [facility] [address] [place] [address] Dr. Fred Bell POINT OF CARE GLUCOSEon 02-25 Glucose [Mass/Vol] 153 mg/dL Critically high 74-106 [facility] Comment on above: Performed By: #### P OCGLUC #### [facility] [address] [place] [address] Dr. Fred Bell Glucose [Mass/Vol] 169 mg/dL Critically high 74-106 [facility] Comment on above: Performed By: #### P OCGLUC #### [facility] [address] [place] [address] Dr. Fred Bell Glucose [Mass/Vol] 252 mg/dL Critically high 74-106 [facility] Comment on above: Performed By: #### C DIFPOC #### [facility] [address] [place] [address] Dr. Fred Bell PROF CHEM 8 (BAS METB)on Anion gap [Moles/Vol] 15.1 mmol/L Normal [facility] Comment on above: Performed By: #### C DIFPOC #### [facility] [address] [place] [address] Dr. Fred Bell Calcium [Mass/Vol] 8.8 mg/dL Normal 8.5-10.[address] [facility] Comment on above: Performed By: #### C DIFPOC #### [facility] [address] [place], [place] [id number] Dr. Fred Bell Chloride [Moles/Vol] 107 mmol/L Normal 98-107 [facility] Comment on above: Performed By: #### C DIFPOC #### [facility] [address] [place] [address] Dr. Fred Bell CO2 [Moles/Vol] 22.1 mmol/L Normal 21.0-32.[address] [facility] Comment on above: Performed By: #### C DIFPOC #### [facility] [address] [place] [address] Dr. Fred Bell Creatinine [Mass/Vol] 1.20 mg/dL Normal 0.70-1.30 [facility] Comment on above: Performed By: #### C DIFPOC #### [facility] [address] [place] [address] Dr. Fred Bell EGFR-AF SAMMARINESE >60 Normal >=60 [facility] Comment on above: Performed By: #### C DIFPOC #### [facility] [address] [place] [address] Dr. Fred Bell EGFR-NON AF SAMMARINESE >60 Normal >=60 [facility] Comment on above: Performed By: #### C DIFPOC #### [facility] [address] [place] [address] Dr. Fred Bell Glucose [Mass/Vol] 181 mg/dL Critically high 74-106 [facility] Comment on above: Performed By: #### C DIFPOC #### [facility] [address] [place] [address] Dr. Fred Bell Potassium [Moles/Vol] 4.2 mmol/L Normal 3.5-5.1 [facility] Comment on above: Performed By: #### C DIFPOC #### [facility] [address] [place] [address] Dr. Fred Bell Sodium [Moles/Vol] 140 mmol/L Normal 136-[address] [facility] Comment on above: Performed By: #### C DIFPOC #### [facility] [address] [place] [address] Dr. Fred Bell Urea nitrogen [Mass/Vol] 12.0 mg/dL Normal 7.0-18.0 [facility] Comment on above: Performed By: #### C DIFPOC #### [facility] [address] [address] [address] Fred Bell Urea nitrogen/Creatinine [Mass ratio] 10.0 mg/mg Normal [facility] Comment on above: Performed By: #### C DIFPOC #### [facility] [address] [address] [address] Fred Bell VANCOMYCIN TROUGHon 03-17-20 VANCOMYCIN TROUGH 16.1 ug/ml Normal 5.0-20.0 [facility] Comment on above: Performed By: #### V ANCT #### [facility] [address] [place] [address] Dr. Fred Bell XR CHEST 2 Von [...] as clinically indicated. Electronically authenticated by: AARTI SAID Date: 2022-03-17 06:29 Normal [facility] CBC W MANUAL DIFFon 03-16-20 ATYPICAL LYMPH # Normal [facility] Comment on above: Performed By: #### B MP #### [facility] [address] [address] [address] Fred Bell ATYPICAL LYMPH % Normal [facility] Comment on above: Performed By: #### B MP #### [facility] [address] [place] [address] Dr. Fred Bell BAND # Normal 0.0-0.3 [facility] Comment on above: Performed By: #### B MP #### [facility] [address] [place] [address] Dr. Fred Bell BAND % Normal 0-5 [facility] Comment on above: Performed By: #### B MP #### [facility] [address] [place] [address] Dr. Fred Bell BASOM # 0.00 103/ul Normal 0.00-0.10 [facility] Comment on above: Performed By: #### B MP #### [facility] [address] [place] [address] Dr. Fred Bell BASOM % 0.0 % Critically low 0.2-2.0 [facility] Comment on above: Performed By: #### B MP #### [facility] [address] [place] [address] Dr. Fred Bell BLAST # Normal [facility] Comment on above: Performed By: #### B MP #### [facility] [address] [place] [address] Dr. Fred Bell BLAST % Normal [facility] Comment on above: Performed By: #### B MP #### [facility] [address] [place] [address] Dr. Fred Bell CORRECTED WBC Normal 4.0-11.0 [facility] Comment on above: Performed By: #### B MP #### [facility] [address] [place] [address] Dr. Fred Bell EOS # 0.21 103/ul Normal 0.00-0.70 [facility] Comment on above: Performed By: #### B MP #### [facility] [address] [place] [address] Dr. Ferd Bell EOS% 1.0 % Normal 0.9-7.0 [facility] Comment on above: Performed By: #### B MP #### [facility] [address] [place] [address] Dr. Fred Bell HCT 29.4 % Critically low 42.0-54.0 [facility] Comment on above: Performed By: #### B MP #### [facility] [address] [place] [address] Dr. Fred Bell HGB 8.9 g/dl Critically low 14.0-18.0 [facility] Comment on above: Performed By: #### B MP #### [facility] [address] [place] [address] Dr. Fred Bell HYPERSEG NEUT 2+ Normal [facility] Comment on above: Performed By: #### B MP #### [facility] [address] [place] [address] Dr. Fred Bell LYMPHM # 1.71 103/ul Normal 1.20-3.80 [facility] Comment on above: Performed By: #### B MP #### [facility] [address] [place] [address] Dr. Fred Bell LYMPHM% 8.0 % Critically low 20.5-60.0 [facility] Comment on above: Performed By: #### B MP #### [facility] [address] [place] [address] Dr. Fred Bell MCH 27.1 pg Normal 25.9-34.0 [facility] Comment on above: Performed By: #### B MP #### [facility] [address] [place] [address] Dr. Fred Bell MCHC 30.3 g/dl Normal 29.9-35.2 [facility] Comment on above: Performed By: #### B MP #### [facility] [address] [place] [address] Dr. Fred Bell MCV 89.6 fL Normal 80.0-94.0 [facility] Comment on above: Performed By: #### B MP #### [facility] [address] [place] [address] Dr. Fred Bell METAMYELOCYTE # Normal [facility] Comment on above: Performed By: #### B MP #### [facility] [address] [place] [address] Dr. Fred Bell METAMYELOCYTE % Normal [facility] Comment on above: Performed By: #### B MP #### [facility] [address] [place] [address] Dr. Fred Bell MONOM# 2.35 103/ul Critically high 0.30-0.[address] [facility] Comment on above: Performed By: #### B MP #### [facility] [address] [address] [address] Fred Bell MONOM% 11.0 % Normal 1.7-12.0 [facility] Comment on above: Performed By: #### B MP #### [facility] [address] [address] [address] Fred Bell MPV 8.8 fL Critically low 9.5-13.5 [facility] Comment on above: Performed By: #### B MP #### [facility] [address] [place] [address] Dr. Fred Bell MYELOCYTE # Normal [facility] Comment on above: Performed By: #### B MP #### [facility] [address] [place] [address] Dr. Fred Bell MYELOCYTE % Normal [facility] Comment on above: Performed By: #### B MP #### [facility] [address] [place] [address] Dr. Fred Bell NRBC Normal [facility] Comment on above: Performed By: #### B MP #### [facility] [address] [place] [address] Dr. Fred Bell PLT 491 103/ul Critically high 150-450 [facility] Comment on above: Performed By: #### B MP #### [facility] [address] [address] [address] Fred Bell RBC 3.28 106/ul Critically low 4.70-6.10 [facility] Comment on above: Result Comment: ROUL EUX 3+ Performed By: #### B MP #### [facility] [address] [place] [address] Dr. Fred Bell RDW 16.6 % Critically high 11.0-15.0 [facility] Comment on above: Performed By: #### B MP #### [facility] [address] [place] [address] Dr. Fred Bell SEG # 17.12 103/ul Critically high 1.40-6.50 [facility] Comment on above: Performed By: #### B MP #### [facility] [address] [address] [address] Fred Bell SEG % 80.0 % Critically high 43.0-75.0 [facility] Comment on above: Performed By: #### B MP #### [facility] [address] [address] [address] Fred Bell WBC 21.4 103/ul Critically high 4.0-11.[address] [facility] Comment on above: Performed By: #### B MP #### [facility] [address] [place] [address] Dr. Fred Bell CYTOLOGYon 03-16-2022 SENT TO REF LAB 03/17/22 Normal [facility] Comment on above: Performed By: #### C BC #### [facility] [address] [place] [address] Dr. Fred Bell GRAM STAINon 03-16-2022 COMMENTS NO ORGANISMS OBSERVED Normal [facility] Comment on above: Performed By: #### B MP #### [facility] [address] [place] [address] Dr. Fred Bell DIPHTHEROIDS Normal [facility] Comment on above: Performed By: #### B MP #### [facility] [address] [address] [address] Fred Bell EPITHELIALS Normal [facility] Comment on above: Performed By: #### B MP #### [facility] [address] [place] [address] Dr. Fred Bell FUNGAL ELEMENTS Normal [facility] Comment on above: Performed By: #### B MP #### [facility] [address] [place] [address] Dr. Fred Bell GRAM NEG BACILLI Normal [facility] Comment on above: Performed By: #### B MP #### [facility] [address] [place] [address] Dr. Fred Bell GRAM NEG DIPPLOCOCCI Normal [facility] Comment on above: Performed By: #### B MP #### [facility] [address] [address] [address] Fred Bell GRAM POS BACILLI Normal [facility] Comment on above: Performed By: #### B MP #### [facility] [address] [address] [address] Fred Bell GRAM POSITIVE COCCI Normal [facility] Comment on above: Performed By: #### B MP #### [facility] [address] [address] [address] Fred Bell GRAM STAIN SOURCE Left upper lobe lavage Normal [facility] Comment on above: Performed By: #### B MP #### [facility] [address] [address] [address] Fred Bell GS_DIPTH Normal [facility] Comment on above: Performed By: #### B MP #### [facility] [address] [address] [address] Fred Bell WBC MODERATE Normal [facility] Comment on above: Performed By: #### B MP #### [facility] [address] [address] [address] Fred Bell POINT OF CARE GLUCOSEon 02-25 Glucose [Mass/Vol] 218 mg/dL Critically high [address] [place] [address] Comment on above: Performed By: #### A 1C #### [facility] [address] [address] [address] Fred Bell Glucose [Mass/Vol] 251 mg/dL Critically high [address] [place] [address] Comment on above: Performed By: #### P OCGLUC #### [facility] [address] [address] [address] Fred Bell PROF CHEM 8 (BAS METB)on Anion gap [Moles/Vol] 13.9 mmol/L Normal [facility] Comment on above: Performed By: #### B MP #### [facility] [address] [address] [address] Fred Bell Calcium [Mass/Vol] 8.7 mg/dL Normal 8.5-10.1 [facility] Comment on above: Performed By: #### B MP #### [facility] [address] [address] [address] Fred Bell Chloride [Moles/Vol] 106 mmol/L Normal 98-107 [facility] Comment on above: Performed By: #### B MP #### [facility] [address] [address] [address] Fred Bell CO2 [Moles/Vol] 25.4 mmol/L Normal 21.0-32.[address] [facility] Comment on above: Performed By: #### B MP #### [facility] [address] [address] [address] Fred Bell Creatinine [Mass/Vol] 1.42 mg/dL Critically high 0.70-1.30 [facility] Comment on above: Performed By: #### B MP #### [facility] [address] [address] [address] Fred Bell EGFR-AF SAMMARINESE >60 Normal >=[address] [facility] Comment on above: Performed By: #### B MP #### [facility] [address] [address] [address] Fred Bell EGFR-NON AF SAMMARINESE 52 mL/min/1.73m2 Critically low >=60 [facility] Comment on above: Performed By: #### B MP #### [facility] [address] [address] [address] Fred Bell Glucose [Mass/Vol] 121 mg/dL Critically high 74-106 [facility] Comment on above: Performed By: #### B MP #### [facility] [address] [address] [address] Fred Bell Potassium [Moles/Vol] 4.3 mmol/L Normal 3.5-5.1 [facility] Comment on above: Performed By: #### B MP #### [facility] [address] [address] [address] Fred Bell Sodium [Moles/Vol] 141 mmol/L Normal 136-145 [facility] Comment on above: Performed By: #### B MP #### [facility] [address] [address] [address] Fred Bell Urea nitrogen [Mass/Vol] 12.0 mg/dL Normal 7.0-18.0 [facility] Comment on above: Performed By: #### B MP #### [facility] [address] [address] [address] Fred Bell Urea nitrogen/Creatinine [Mass ratio] 8.5 mg/mg Normal [facility] Comment on above: Performed By: #### B MP #### [facility] [address] [address] [address] Fred Bell XR CHEST 2 Von [...] by: AARTI LAYTON Date: 2022-03-16 06:07 Normal [facility] BNPon 03-15-2022 Natriuretic peptide B (Bld) [Mass/Vol] 3075.0 pg/mL Critically high <=900.0 [facility] Comment on above: Performed By: #### A 1C #### [facility] [address] [place] [address] Dr. Fred Bell CARDIAC MOUNIKA ADMITon 022 CK [Catalytic activity/Vol] 30 U/L Critically low 39-308 [facility] Comment on above: Performed By: #### V ANCT #### [facility] [address] [address] [address] Fred Bell CK.MB [Mass/Vol] 0.32 ng/mL Normal <=3.[address] [facility] Comment on above: Performed By: #### V ANCT #### [facility] [address] [place] [address] Dr. Fred Bell HSTROP 4.8 pg/mL Normal 4.0-76.1 [facility] Comment on above: Result Comment: CUT- OFF POINTS HAVE BEEN ESTABLISHED BASED ON THE FOURTH UNIVERSAL DEFINITIONS OF MYOCARDIAL INFARCTION. THE UPPER REFERENCE LIMIT (URL) OF TROPONIN, DEFINED THE 99TH PERCENTILE OF cTnI DISTRIBUTION IN A REFERENCE POPULATION, HAS BEEN CONFIRMED THE DECISION THRESHOLD FOR SD DIAGNOSIS. Performed By: #### V ANCT #### [facility] [address] [place] [address] Dr. Fred Bell DEEPALI 40 ng/mL Normal 16-96 [facility] Comment on above: Performed By: #### V ANCT #### [facility] [address] [place] [address] Dr. Fred Bell CBC AUTO DIFFon 03-15-2022 BASO # 0.1 103/ul Normal 0.0-0.1 [facility] Comment on above: Performed By: #### C BC #### [facility] [address] [place] [address] Dr. Fred Bell Basophils/100 WBC (Bld) 0.3 % Normal 0.2-2.0 [facility] Comment on above: Performed By: #### C BC #### [facility] [address] [place] [address] Dr. Fred Bell EO # 0.1 103/ul Normal 0.0-0.7 [facility] Comment on above: Performed By: #### C BC #### [facility] [address] [place] [address] Dr. Fred Bell Eosinophils/100 WBC (Bld) 0.6 % Critically low 0.9-7.0 [facility] Comment on above: Performed By: #### C BC #### [facility] [address] [place] [address] Dr. Fred Bell Erythrocyte distribution width (RBC) [Ratio] 16.7 % Critically high 11.0-15.0 [facility] Comment on above: Performed By: #### C BC #### [facility] [address] [address] [address] Fred Bell Hematocrit (Bld) [Volume fraction] 35.0 % Critically low 42.0-54.0 [facility] Comment on above: Performed By: #### C BC #### [facility] [address] [address] [address] Fred Bell Hemoglobin (Bld) [Mass/Vol] 10.8 g/dL Critically low 14.0-18.0 [facility] Comment on above: Performed By: #### C BC #### [facility] [address] [address] [address] Fred Bell IG # 0.15 10e3/ul Critically high 0.00-0.03 [facility] Comment on above: Performed By: #### C BC #### [facility] [address] [place] [address] Dr. Fred Bell IG % 0.7 % Critically high 0.0-0.5 [facility] Comment on above: Performed By: #### C BC #### [facility] [address] [address] [address] Fred Bell LYMPH # 1.1 103/ul Critically low 1.2-3.8 [facility] Comment on above: Performed By: #### C BC #### [facility] [address] [place] [address] Dr. Fred Bell Lymphocytes/100 WBC (Bld) 5.4 % Critically low 20.5-60.0 [facility] Comment on above: Performed By: #### C BC #### [facility] [address] [address] [address] Fred Bell MANUAL DIFF REQ NO Normal [facility] Comment on above: Performed By: #### C BC #### [facility] [address] [place] [address] Dr. Fred Bell MCH (RBC) [Entitic mass] 27.1 pg Normal 25.9-34.0 [facility] Comment on above: Performed By: #### C BC #### [facility] [address] [address] [address] Fred Bell MCHC (RBC) [Mass/Vol] 30.9 g/dL Normal 29.9-35.2 [facility] Comment on above: Performed By: #### C BC #### [facility] [address] [address] [address] Fred Bell MCV (RBC) [Entitic vol] 87.9 fL Normal 80.0-94.0 [facility] Comment on above: Performed By: #### C BC #### [facility] [address] [address] [address] Fred Bell MONO # 1.4 103/ul Critically high 0.3-0.8 [facility] Comment on above: Performed By: #### C BC #### [facility] [address] [address] [address] Fred Bell Monocytes/100 WBC (Bld) 6.4 % Normal 1.7-12.0 [facility] Comment on above: Performed By: #### C BC #### [facility] [address] [address] [address] Fred Bell NEUT # 18.4 103/ul Critically high 1.4-6.5 [facility] Comment on above: Performed By: #### C BC #### [facility] [address] [address] [address] Fred Bell Neutrophils/100 WBC (Bld) 86.6 % Critically high 43.0-75.0 [facility] Comment on above: Performed By: #### C BC #### [facility] [address] [id number] Fred Bell Platelet mean volume (Bld) [Entitic vol] 8.5 fL Critically low 9.5-13.5 [facility] Comment on above: Performed By: #### C BC #### [facility] [address] [address] [address] Fred Bell PLT 525 103/ul Critically high 150-450 [facility] Comment on above: Performed By: #### C BC #### [facility] [address] [place], [place] [address] Dr. Fred Bell RBC 3.98 106/ul Critically low 4.70-6.10 [facility] Comment on above: Performed By: #### C BC #### [facility] [address] [place], [place] [address] Dr. Fred Bell WBC 21.2 103/ul Critically high 4.0-11.0 [facility] Comment on above: Performed By: #### C BC #### [facility] [address] [place], [place] [address] Dr. Fred Bell CTA CHEST WO W CONon 022 CTA CHEST WO W CON EXAMINATION: [...] DEEDEE LIZARRAGA Date: 2022-03-15 15:33 Normal [facility] CULTURE BLOODon 03-15-2022 Microscopic examination of blood, culture Culture Observations: NO GROWTH AT 5 DAYS. Normal [facility] Comment on above: Performed By: #### C DIFPOC #### [facility] [address] [address] [address] Fred Bell [facility] SARS-CoV-2 (COVID-19) RNA DALE+probe Ql (Unsp spec) Not detected Normal NOT DETECTED [facility] Comment on above: Result Comment: When [...] for this test is supported by the Mechanical Process Engineer of Health and Human Service's declaration that [...] used). Performed By: #### B MP #### [facility] [address] [place] [address] Dr. Fred Bell D-DIMERon 03-15-2022 D-DIMER 5.11 mg/L FEU Critically high <=0.59 [facility] Comment on above: Performed By: #### C DIFPOC #### [facility] [address] [place] [address] Dr. Fred Bell D-DIMER COMMENTS SEE BELOW Normal [facility] Comment on above: Result Comment: Incr eases [...] hospitalization. Performed By: #### C DIFPOC #### [facility] [address] [place] [address] Dr. Fred Bell LACTATE/LACTIC ACIDon 2021 Lactate [Moles/Vol] 2.0 mmol/L Critically high 0.4-1.9 [facility] Comment on above: Performed By: #### B MP #### [facility] [address] [place] [address] Dr. Fred Bell Lactate [Moles/Vol] 1.5 mmol/L Normal 0.4-1.9 [facility] Comment on above: Performed By: #### C DIFPOC #### [facility] [address] [place] [address] Dr. Fred Bell POINT OF CARE GLUCOSEon 02-25 Glucose [Mass/Vol] 178 mg/dL Critically high 74-106 [facility] Comment on above: Performed By: #### A 1C #### [facility] [address] [place] [address] Dr. Fred Bell PROF 14(COMP METB)on 022 Albumin [Mass/Vol] 2.3 g/dL Critically low 3.4-5.0 [facility] Comment on above: Performed By: #### A 1C #### [facility] [address] [place] [address] Dr. Fred Bell Albumin/Globulin [Mass ratio] 0.4 {ratio} Normal [facility] Comment on above: Performed By: #### A 1C #### [facility] [address] [place] [address] Dr. Fred Bell ALP [Catalytic activity/Vol] 486 U/L Critically high 46-116 [facility] Comment on above: Performed By: #### A 1C #### [facility] [address] [place] [address] Dr. Fred eBll ALT [Catalytic activity/Vol] 37 U/L Normal 16-63 [facility] Comment on above: Performed By: #### A 1C #### [facility] [address] [place] [address] Dr. Fred Bell Anion gap [Moles/Vol] 18.5 mmol/L Normal [facility] Comment on above: Performed By: #### A 1C #### [facility] [address] [address] [address] Fred Bell AST [Catalytic activity/Vol] 34 U/L Normal 15-37 [facility] Comment on above: Performed By: #### A 1C #### [facility] [address] [address] [address] Fred Bell Bilirubin [Mass/Vol] 0.5 mg/dL Normal 0.2-1.0 [facility] Comment on above: Performed By: #### A 1C #### [facility] [address] [address] [address] Fred Bell Calcium [Mass/Vol] 9.6 mg/dL Normal 8.5-10.[address] [facility] Comment on above: Performed By: #### A 1C #### [facility] [address] [address] [address] Fred Bell Chloride [Moles/Vol] 102 mmol/L Normal 98-107 [facility] Comment on above: Performed By: #### A 1C #### [facility] [address] [address] [address] Fred Bell CO2 [Moles/Vol] 22.8 mmol/L Normal 21.0-32.0 [facility] Comment on above: Performed By: #### A 1C #### [facility] [address] [address] [address] Fred Bell Creatinine [Mass/Vol] 1.37 mg/dL Critically high 0.70-1.30 [facility] Comment on above: Performed By: #### A 1C #### [facility] [address] [place] [address] Dr. Fred Bell EGFR-AF SAMMARINESE >60 Normal >=60 [facility] Comment on above: Performed By: #### A 1C #### [facility] [address] [address] [address] Fred Bell EGFR-NON AF SAMMARINESE 54 mL/min/1.73m2 Critically low >=60 [facility] Comment on above: Performed By: #### A 1C #### [facility] [address] [place] [address] Dr. Fred Bell Globulin (S) [Mass/Vol] 6.5 g/dL Normal [facility] Comment on above: Performed By: #### A 1C #### [facility] [address] [place] [address] Dr. Fred Bell Glucose [Mass/Vol] 105 mg/dL Normal 74-[address] [facility] Comment on above: Performed By: #### A 1C #### [facility] [address] [place] [address] Dr. Fred Bell Potassium [Moles/Vol] 4.3 mmol/L Normal 3.5-5.1 [facility] Comment on above: Performed By: #### A 1C #### [facility] [address] [place] [address] Dr. Fred Bell Protein [Mass/Vol] 8.8 g/dL Critically high 6.4-8.[address] [facility] Comment on above: Performed By: #### A 1C #### [facility] [address] [place] [address] Dr. Fred Bell Sodium [Moles/Vol] 139 mmol/L Normal 136-[address] [facility] Comment on above: Performed By: #### A 1C #### [facility] [address] [place] [address] Dr. Fred Bell Urea nitrogen [Mass/Vol] 14.0 mg/dL Normal 7.0-18.0 [facility] Comment on above: Performed By: #### A 1C #### [facility] [address] [place] [address] Dr. Fred Bell Urea nitrogen/Creatinine [Mass ratio] 10.2 mg/mg Normal [facility] Comment on above: Performed By: #### A 1C #### [facility] [address] [place] [address] Dr. Fred Bell PROTIMEon 03-15-2022 INR Coag (PPP) [Relative time] 0.98 {INR} Normal [facility] Comment on above: Performed By: #### D DIM, PT, PTT #### [facility] [address] [address] [address] Ferd Bell INR GUIDELINES SEE BELOW Normal [facility] Comment on above: Result Comment: SAMANTHA RED INR: 2.0 - 3.0 CONDITIONS NOT LISTED BELOW 2.5 - 3.5 FOR PROSTHETIC HEART VALVE REPLACEMENT 2.5 - 3.5 RECURRENT THROMBOSIS Performed By: #### D DIM, PT, PTT #### [facility] [address] [place], [place] [address] Dr. Fred Bell PT Coag (PPP) [Time] 10.6 s Normal 9.0-11.6 [facility] Comment on above: Performed By: #### D DIM, PT, PTT #### [facility] [address] [id number] Fred Bell PTTon 03-15-2022 aPTT Coag (Bld) [Time] 26.0 s Normal 22.3-36.2 [facility] Comment on above: Performed By: #### C DIFPOC #### [facility] [id number] Fred Bell XR CHEST 1 Von [...] by: DEEDEE LIZARRAGA Date: 2022-03-15 12:[address] [facility] Vital Signs Date Time Vital Sign Value Performing Clinician Facility 06-11-2024 14:08-0400 Body mass index (BMI) [Ratio] 21.93 kg/m2 Riley Madrigal MD Work Phone: [facility] [facility] 06-11-2024 14:08-0400 Body temperature 97.39 [degF] Riley Madrigal MD Work Phone: [facility] 06-11-2024 14:08-0400 Body weight 63.5 kg Riley Madrigal MD Work Phone: [facility] 06-11-2024 14:08-0400 Heart rate 81 /min Riley Madrigal MD Work Phone: [facility] 06-11-2024 14:08-0400 Respiratory rate 17 /min Riley aMdrigal MD Work Phone: [facility] 06-11-2024 14:08-0400 SaO2% (BldA) [Mass fraction] 97 % Riley Madrigal MD Work Phone: [facility] 06-08-2022 18:40-0400 Body height 170.18 cm Anuja Ana Other [facility] Other 06-08-2022 18:40-0400 Body mass index (BMI) [Ratio] 21.92 kg/m2 Anuja Ana Other [facility] Other 06-08-2022 18:40-0400 Body temperature 99.1 [degF] Anuja Ana Other [facility] Other 06-08-2022 18:40-0400 Body weight 63.5 kg Anuja Farmerault Other [facility] Other 06-08-2022 18:40-0400 Respiratory rate 18 /min Anuja Ana Other [facility] Other 06-08-2022 18:40-0400 SaO2% (BldA) [Mass fraction] 97 % Anuja Ana Other [facility] Other Encounters Encounter Date Encounter Type Care Provider Facility Start: 09-03-2024 End: 09-03-2024 Refill Riley Madrigal MD Work Phone: [facility] Comment on above: Bilateral primary os teoarthritis of knee Start: 08-22-2024 End: 08-22-2024 Refill Riley Madrigal MD Work Phone: [facility] Comment on above: Gastro-esophageal re flux disease without esophagitis Start: 06-21-2024 End: 06-21-2024 ambulatory [facility] Start: 06-11-2024 End: 06-11-2024 Bambomarge flowsheet Riley Madrigal MD Work Phone: [facility] Start: 06-11-2024 End: 06-11-2024 Bamboo flowsheet Riley Madrigal MD Work Phone: [facility] Start: 06-11-2024 End: 06-11-2024 Office outpatient visit 25 minutes Riley Madrigal MD Work Phone: [facility] Comment on above: Type 2 diabetes paulie itus with hyperglycemia, without long-term current use of insulin (CMS/[facility]) (Primary Dx); Benign essential hypertension (CMS/HCC); Chronic heart failure with preserved ejection fraction (HFpEF) (CMS/[facility]); DDD (degenerative disc disease), lumbar; Chronic obstructive pulmonary disease, unspecified COPD type (CMS/HCC); Dyslipidemia (CMS/HCC); Stage 3b chronic kidney disease (CKD) (CMS/[facility]); Encounter for long-term (current) use of medications; Screening PSA (prostate specific antigen); Bilateral primary osteoarthritis of knee Start: 06-11-2024 End: 06-11-2024 ambulatory RILEY MADRIGAL Not Available Start: 11-14-2023 End: 11-14-2023 ambulatory RILEY MADRIGAL Not Available Start: 10-17-2023 End: 10-17-2023 ambulatory RILEY MADRIGAL Not Available Start: 12-20-2022 End: 12-21-2022 ambulatory [facility] Facility:[facility] Start: 11-19-2022 Encounter for genera l adult medical examination without abnormal findings DR RILEY MADRIGAL [facility] Start: 11-15-2022 End: 11-16-[address] RILEY MADRIGAL Facility:[facility] Start: 11-15-2022 End: 11-16-2022 Encounter for general adult medical examination without abnormal findings DR RILEY MADRIGAL Facility:[facility] Start: 06-08-2022 End: 06-08-2022 ambulatory Anuja Perez Other [place] [employer] Other Start: 06-08-2022 Office outpatient vi sit 15 minutes Anuja Perez [facility] Start: 04-05-2022 End: 04-06-[address] FRANCESCA BUENO Facility:[facility] Start: 03-30-2022 End: 03-30-[address] RILEY MADRIGAL Facility:[facility] Start: 03-25-2022 End: 03-25-[address] RILEY MADRIGAL Facility:[facility] Start: 03-23-2022 End: 03-23-[address] RILEY MADRIGAL Facility:[facility] Start: 03-15-2022 End: 03-19-2022 Evaluation and management of inpatient JERE FERNANDEZ . Facility: Start: 01-03-2018 End: 01-04-2018 Ambulatory DEFAULT PHYSICIAN Facility:[facility] Start: 11-16-2017 End: 11-17-2017 Ambulatory DEFAULT PHYSICIAN Facility:[facility] Procedures Date Procedure Procedure Detail Performing Clinician Start: 11-15-2022 PSA screening JERE DUARTE MSA . Comment on above: Performed By: #### V ANCT #### [facility] [address] [place] [address] Dr. Fred Bell Start: 03-18-2022 Insertion of Infusio n Device into Superior Vena Cava, Percutaneous Approach JERE FERNANDEZ . Start: 03-16-2022 Drainage of Left Upp er Lung Lobe, Via Natural or Artificial Opening Endoscopic, Diagnostic JERE FERNANDEZ . Start: 10-03-2017 Colonoscopy Riley de leon MD Work Phone: Plan of Treatment Date Care Activity Detail Author Start: 10-03-2027 Screening for malign ant neoplasm of colon [facility] Start: 12-10-2024 End: 12-10-2024 Patient encounter procedure 12/10/2024 9:30 AM EDT Office Visit [facility] [address] [place] [address] Riley Madrigal MD [address] [place] [id number] [facility] Start: 06-11-2024 End: 06-11-2025 Albumin, urine, random Albumin, urine, random Lab Routine Type 2 diabetes mellitus with hyperglycemia, without long-term current use of insulin ([facility]) Expected: 06/11/2024 (Approximate), Expires: 06/11/2025 [facility] Work Phone: Comment on above: Expected: 06/11/2024 (Approximate), Expires: 06/11/2025 Start: 06-11-2024 End: 06-11-2025 Basic metabolic 1998 panel - Serum or Plasma Basic metabolic panel Lab Routine Stage 3b chronic kidney disease (CKD) ([facility]/HCC) Expected: 06/11/2024 (Approximate), Expires: 06/11/2025 [facility] Comment on above: Expected: 06/11/2024 (Approximate), Expires: 06/11/2025 Start: 06-11-2024 End: 06-11-2025 CBC W Auto Differential panel - Blood CBC and differential Lab Routine Encounter for long-term (current) use of medications Expected: 06/11/2024 (Approximate), Expires: 06/11/2025 [facility] Comment on above: Expected: 06/11/2024 (Approximate), Expires: 06/11/2025 Start: 06-11-2024 End: 06-11-2025 Hemoglobin A1c/Hemoglobin.total in Blood Hemoglobin A1c Lab Routine Type 2 diabetes mellitus with hyperglycemia, without long-term current use of insulin ([facility]/HCC) Expected: 06/11/2024 (Approximate), Expires: 06/11/2025 [facility] Comment on above: Expected: 06/11/2024 (Approximate), Expires: 06/11/2025 Start: 06-11-2024 End: 06-11-2025 Hepatic function 2000 panel - Serum or Plasma Hepatic function panel Lab Routine Encounter for long-term (current) use of medications Expected: 06/11/2024 (Approximate), Expires: 06/11/2025 [facility] Comment on above: Expected: 06/11/2024 (Approximate), Expires: 06/11/2025 Start: 06-11-2024 End: 06-11-2025 Lipid 1996 panel - Serum or Plasma Lipid panel Lab Routine Dyslipidemia (CMS/HCC) Expected: 06/11/2024 (Approximate), Expires: 06/11/2025 [facility] Comment on above: Expected: 06/11/2024 (Approximate), Expires: 06/11/2025 Start: 06-11-2024 End: 06-11-2024 Patient encounter procedure 06/11/2024 2:00 PM EDT Office Visit [facility] [address] [place] [phone] Riley Madrigal MD [address] [place] [address] [facility] Comment on above: Arrived Start: 06-11-2024 End: 06-11-2025 Prostate specific Ag [Mass/volume] in Serum or Plasma PSA Lab Routine Screening PSA (prostate specific antigen) Expected: 06/11/2024 (Approximate), Expires: 06/11/2025 [facility] Comment on above: Expected: 06/11/2024 (Approximate), Expires: 06/11/2025 Start: 05-27-2024 Influenza vaccination Influenza Vacc ine (#1) [facility] Start: 07-01-2023 Hemoglobin A1c measurement Diabetes: Hemoglobin A1C [facility] Start: 1985 Urine screening for protein Diabetes: Urine Protein Screening [facility] Start: 1976 Glaucoma screening Diabetes: R etinopathy Screening [facility] Start: 1966 Screening for malign ant neoplasm of colon [facility] Immunizations Immunization Date Immunization Notes Care Provider Fa cility 06-25-2023 influenza virus vaccine, unspecified formulation Riley Madrigal MD Work Phone: [facility] 07-26-2022 influenza, injectabl e, quadrivalent, preservative free Riley Madrigal MD Work Phone: [facility] 06-28-2022 Moderna SARS-CoV-2 50mcg/0.5mL Booster Riley Madrigal MD Work Phone: [facility] Work Phone: 06-30-2020 influenza, injectabl e, quadrivalent, preservative free Riley Madrigal MD Work Phone: [facility] 06-25-2019 influenza, injectabl e, quadrivalent, preservative free Riley Madrigal MD Work Phone: [facility] 07-20-2018 influenza, injectabl e, quadrivalent, preservative free Riley Madrigal MD Work Phone: [facility] 07-11-2017 Influenza, injectabl e, Madin Jeanna Canine Kidney, preservative free, quadrivalent Riley Madrigal MD Work Phone: [facility] 08-04-2015 influenza, seasonal, injectable, preservative free Riley Madrigal MD Work Phone: [facility] Payers Date Payer Category Payer Private Health Insurance [id number] 1966 Unknown [id number] 2.16.84 [id number] 1966 Unknown [id number] 2.16.84 [id number] 1966 Unknown [id number] 2.16.84 [id number] 1966 Unknown [id number] 2.16.84 [id number] 1966 Unknown [id number] 2.16.84 [id number] 1966 Unknown [id number] 2.16.84 [id number] 1966 Unknown [id number] 2.16.84 [id number] 1966 Unknown [id number] 2.16.84 [id number] 1966 Unknown [id number] 2.16.84 [id number] 1966 Unknown [id number] 2.16.84 [id number] 1959 Private Health Insurance [id number] Unknown Social History Date Type Detail Facility Unknown if ever smoked [facility] Other Start: 10-17-2023 End: 06-11-2024 Sex Assigned At [facility] Start: 10-21-[address] [facility] Ex-smoker [facility] Start: 09-26-1986 End: 09-26-2012 History of tobacco use Current smoker [facility] Start: 09-26-1986 End: 09-26-2012 History of tobacco use Cigarette Smoker [facility] Start: 10-17-2023 End: 10-21-2023 Cigarettes smoked current (pack per day) - Reported 1 [facility] Start: 10-21-2023 Tobacco use and exposure Smokeless tobacco non-user [facility] Start: 11-14-2023 End: 06-11-2024 Alcoholic beverage intake Current drinker of alcohol (finding) [facility] Within the last year , have you been afraid of your partner or ex-partner? Patient declined [facility] Start: 10-17-2023 Tobacco Comment Last smoked : 5-10 years [facility] Start: 1965 Sex assigned at Not on file [facility] Progress note 06-21-2024 Note Date & Type Note Facility 06-21-2024 Note Cardiovascular Medic in[facility] SUBJECTIVE No chief complaint on file. Francesca Jhaveri is a 58 y.o. male here for follow-up. HPI PMHx: severe vasculopathy, prior coronary and peripheral bypass surgery, HTN, HLD, CKD He denies exertional chest pain or shortness [...] not been checking his BP at home. 06/21/2024 He states he has been doing well since last seen. He had his hip replacement surgery, no issues with this. He isn't routinely checking his BP at home. He is asking about his medications - reviewed his cardiac meds and discussed their indication. Would not recommend stopping any medications at this time. He states understanding. Denies c/o CP, dyspnea, orthopnea, PND, LE edema, dizziness/LH, palpitations, syncope. Patient Active Problem List Diagnosis Coronary arteriosclerosis Diabetes mellitus (CMS/HCC) Gastroesophageal reflux disease Hyperlipidemia Peripheral vascular disease (CMS/[facility]) Asthma without status asthmaticus Avascular necrosis of bone of hip (CMS/HCC) Disability of walking Arthritis of left hip Primary localized osteoarthritis of left hip Tobacco user Hypertensive disorder Primary hypertension Atherosclerosis of coronary artery without angina pectoris DJD (degenerative joint disease) History of total left hip replacement Status post right hip replacement Bilateral primary osteoarthritis of knee BPH associated with nocturia Chronic heart failure with preserved ejection fraction (HFpEF) ([facility]) COPD (chronic obstructive pulmonary disease) ([facility]) DDD (degenerative disc disease), lumbar Dyslipidemia Encounter for long-term (current) use of medications SOB (shortness of breath) Stage 3b chronic kidney disease (CKD) ([facility]) Vitamin D deficiency Past Medical History: Diagnosis Date Coronary artery disease Diabetes mellitus ([facility]) GERD (gastroesophageal reflux disease) Hyperlipidemia Hypertension PVD (peripheral vascular disease) ([facility]) Family History Problem Relation Name Age of Onset Hypertension Father Social History Tobacco Use Smoking status: Former Types: Cigarettes Smokeless tobacco: Never Substance Use Topics Alcohol use: Yes Comment: occasional No Known Allergies ROS Musculoskeletal: Positive for arthritis and back pain. All other systems reviewed and are negative. OBJECTIVE Visit Vitals BP 110/64 (BP Location: Left arm, Patient Position: Sitting) Pulse 78 Ht 1.702 m (5' 7 ) Wt 64.4 kg (142 lb) SpO2 97% BMI 22.24 kg/m??? Smoking Status Former BSA 1.74 m??? Medications: Current Outpatient Medications: albuterol 90 mcg/actuation inhaler, albuterol sulfate HFA 90 mcg/actuation aerosol inhaler INHALE 2 PUFFS BY MOUTH EVERY 4 HOURS NEEDED for SHORTNESS OF BREATH, Disp: , Rfl: amLODIPine (Norvasc) 5 mg tablet, TAKE 1 TABLET BY MOUTH ONCE DAILY DIRECTED, Disp: 90 tablet, Rfl: 3 aspirin 81 mg chewable tablet, in the morning., Disp: , Rfl: atorvastatin (Lipitor) 80 mg tablet, Take 1 tablet (80 mg) by mouth at bedtime., Disp: 90 tablet, Rfl: 3 carvedilol (Coreg) 12.5 mg tablet, Take 1 tablet (12.5 mg) by mouth in the morning and at bedtime., Disp: 180 tablet, Rfl: 3 dapagliflozin propanediol (Farxiga) 10 mg, Take 1 tablet (10 mg) by mouth in the morning., Disp: 90 tablet, Rfl: 3 furosemide (Lasix) 40 mg tablet, Take 40 mg by mouth in the morning., Disp: , Rfl: lisinopril 10 mg tablet, TAKE 1 TABLET BY MOUTH IN THE MORNING, Disp: 30 tablet, Rfl: 11 omeprazole (PriLOSEC) [address] capsule, omeprazole 40 mg capsule,delayed release TAKE 1 CAPSULE BY MOUTH DAILY, Disp: , Rfl: traMADol (Ultram) 50 mg tablet, Take 50 mg by mouth every 4 (four) hours., Disp: , Rfl: dapagliflozin propanediol (Farxiga) 10 mg, Take 1 tablet (10 mg) by mouth in the morning., Disp: 90 tablet, Rfl: 3 dapagliflozin propanediol (Farxiga) 10 mg, Take 1 tablet (10 m (more content not included)... [facility] Progress note 06-21-2024 Note Date & Type Note Facility 06-21-2024 Note Patient here for 1 y ear follow up CAD, hypertension, and hyperlipidemia. He was started on lisinopril at last visit in May 2023. Had stress test in November 2023 for PCP. Says he was SOB during the summer heat. This has gotten better since temps are declining. Denies chest pain, palpitations, and lightheadedness/syncope. No labs since Oct 2023. Review of Systems Musculoskeletal: Positive for arthritis and back pain. All other systems reviewed and are negative. [facility] History of Present illness Narrative 06-11-2024 Riley Madrigal MD - 06/11/2024 3:53 PM Lizet Madrigal MD - 06/11/2024 3:53 PM Lizet Madrigal MD - 06/11/2024 3:53 PM Lizet Madrigal MD - 06/11/2024 3:52 PM EDT Note Date & Type Note Facility 06-11-2024 History of Presen t illness Narrative Associated Problem(s): Type 2 diabetes mellitus with hyperglycemia, without long-term current use of insulin ([facility]) Not checking BS and due for A1C. Stick to ADA diet and limit carbs. Associated Problem(s): DDD (degenerative disc disease), lumbar Pain stable and use ultram PRN. Increase activity and walk regularly. Associated Problem(s): COPD (chronic obstructive pulmonary disease) ([facility]) Breathing stable and continue stiolto. Use albuterol PRN. Associated Problem(s): Chronic heart failure with preserved ejection fraction (HFpEF) ([facility]) Edema stable and continue medication. Elevate legs PRN. Associated Problem(s): Bilateral primary osteoarthritis of knee Pain stable and use ultram PRN. Increase activity and walk regularly. Associated Problem(s): Benign essential hypertension ([facility]/HCC) BP controlled and monitor PRN. Images from the original note were not included. Subjective Patient ID: Francesca Jhaveri is a 58 y.o. male who presents for No chief complaint on file.. Follow up DM, HTN, CHF, and pain. Patient feels well today. Not checking BS away from office and due for A1C. Tries to eat well and stick to ADA diet. Denies signs of elevated BS such as polyuria, polyphagia or polydipsia. Checking BP PRN and typically controlled. BP normal today. Taking medication daily and tolerating without side effects. Edema controlled with medication. Mild swelling at end of day and if on feet a lot. Edema improved in am and with elevation. Pain stable. Continues to have pain in back and hips. Pain worse with walking, standing, and activity. Using ultram PRN and helps when needed. COPD stable. Mild SOB and fatigue with exertion. Using stiolto and helps. Review of Systems Constitutional: Negative for fatigue. Respiratory: Negative for cough, shortness of breath and wheezing. Cardiovascular: Negative for chest pain and palpitations. Gastrointestinal: Negative for abdominal pain, diarrhea, nausea and vomiting. Genitourinary: Negative for dysuria. Objective Physical Exam Constitutional: General: He is not in acute distress. Appearance: Normal appearance. HENT: Head: Normocephalic. Right Ear: Tympanic membrane and ear canal normal. Left Ear: Tympanic membrane and ear canal normal. Eyes: Extraocular Movements: Extraocular movements intact. Pupils: Pupils are equal, round, and reactive to light. Cardiovascular: Rate and Rhythm: Normal rate and regular rhythm. Heart sounds: No murmur heard. No friction rub. No gallop. Pulmonary: Breath sounds: Normal breath sounds. No wheezing, rhonchi or rales. Abdominal: General: Bowel sounds are normal. There is no distension. Palpations: Abdomen is soft. Tenderness: There is no abdominal tenderness. There is no guarding or rebound. Musculoskeletal: Left lower leg: No edema. Neurological: Mental Status: He is alert. Assessment/Plan Problem List Items Addressed This Visit Benign essential hypertension ([facility]) BP controlled and monitor PRN. Type 2 diabetes mellitus with hyperglycemia, without long-term current use of insulin ([facility]) - Primary Not checking BS and due for A1C. Stick to ADA diet and limit carbs. Relevant Orders Albumin, urine, random Hemoglobin A1c Dyslipidemia ([facility]/HCC) Relevant Orders Lipid panel Chronic heart failure with preserved ejection fraction (HFpEF) (CMS/HCC) Edema stable and continue medication. Elevate legs PRN. Bilateral primary osteoarthritis of knee Pain stable and use ultram PRN. Increase activity and walk regularly. Relevant Medications traMADol (Ultram) 50 MG tablet COPD (chronic obstructive pulmonary disease) (CMS/HCC) Breathing stable and continue stiolto. Use albuterol PRN. Stage 3b chronic kidney disease (CKD) (CMS/HCC) Relevant Orders Basic metabolic panel Encounter for long-term (current) use of medications Relevant Orders CBC and differential Hepatic function panel DDD (degenerative disc disease), lumbar Pain stable and use ultram PRN. Increase activity and walk regularly. Screening PSA (prostate specific antigen) Relevant Orders PSA documented in this encounter [facility] Evaluation note 06-08-2022 Note Date & Type [...] May, Poison viet dermatitis (ICD-10 - L23.7) [facility] Other Evaluation note Note Date & Type Note Facility Evaluation note Diagnosis SOB (shortness of breath)- Primary Shortness of breath Chronic heart failure with preserved ejection fraction (HFpEF) ([facility]) Coronary artery disease involving [place] coronary artery of [place] heart, unspecified whether angina present ([facility]) Polyuria Type 2 diabetes mellitus with hyperglycemia, without long-term current use of insulin ([facility]) Hypotension due to drugs Other iatrogenic hypotension Encounter for long-term (current) use of medications Encounter for long-term (current) use of other medications Type 2 diabetes mellitus with hyperglycemia, without long-term current use of insulin ([facility])- Primary Benign essential hypertension ([facility]) Essential hypertension, benign Chronic heart failure with preserved ejection fraction (HFpEF) ([facility]) DDD (degenerative disc disease), lumbar Degeneration of lumbar or lumbosacral intervertebral disc Bilateral primary osteoarthritis of knee Chronic obstructive pulmonary disease, unspecified COPD type ([facility]/HCC) Type 2 diabetes mellitus with stage 3b chronic kidney disease, without long-term current use of insulin (HCC) (CMS/[facility]) Peripheral vascular disease, unspecified (I73.9) Peripheral vascular disease, unspecified Type 2 diabetes mellitus with hyperglycemia, without long-term current use of insulin ([facility])- Primary Benign essential hypertension (CMS/[facility]) Essential hypertension, benign Chronic heart failure with preserved ejection fraction (HFpEF) (CMS/[facility]) DDD (degenerative disc disease), lumbar Degeneration of lumbar or lumbosacral intervertebral disc Chronic obstructive pulmonary disease, unspecified COPD type (CMS/HCC) Dyslipidemia (CMS/[facility]) Other and unspecified hyperlipidemia Stage 3b chronic kidney disease (CKD) ([facility]) Encounter for long-term (current) use of medications Encounter for long-term (current) use of other medications Screening PSA (prostate specific antigen) Special screening for malignant neoplasm of prostate Bilateral primary osteoarthritis of knee Gastro-esophageal reflux disease without esophagitis documented in this encounter [facility] Evaluation note Note Date & Type Note Facility Evaluation note Diagnosis Type 2 diabetes mellitus with hyperglycemia, without long-term current use of insulin ([facility])- Primary Benign essential hypertension ([facility]) Essential hypertension, benign Chronic heart failure with preserved ejection fraction (HFpEF) ([facility]) DDD (degenerative disc disease), lumbar Degeneration of lumbar or lumbosacral intervertebral disc Chronic obstructive pulmonary disease, unspecified COPD type ([facility]) Dyslipidemia ([facility]) Other and unspecified hyperlipidemia Stage 3b chronic kidney disease (CKD) ([facility]) Encounter for long-term (current) use of medications Encounter for long-term (current) use of other medications Screening PSA (prostate specific antigen) Special screening for malignant neoplasm of prostate Bilateral primary osteoarthritis of knee documented in this encounter [facility] Evaluation note Note Date & Type Note Facility Evaluation note Diagnosis SOB (shortness of breath)- Primary Shortness of breath Chronic heart failure with preserved ejection fraction (HFpEF) ([facility]) Coronary artery disease involving [place] coronary artery of [place] heart, unspecified whether angina present ([facility]) Polyuria Type 2 diabetes mellitus with hyperglycemia, without long-term current use of insulin ([facility]) Hypotension due to drugs Other iatrogenic hypotension Encounter for long-term (current) use of medications Encounter for long-term (current) use of other medications Type 2 diabetes mellitus with hyperglycemia, without long-term current use of insulin ([facility])- Primary Benign essential hypertension ([facility]) Essential hypertension, benign Chronic heart failure with preserved ejection fraction (HFpEF) ([facility]) DDD (degenerative disc disease), lumbar Degeneration of lumbar or lumbosacral intervertebral disc Bilateral primary osteoarthritis of knee Chronic obstructive pulmonary disease, unspecified COPD type ([facility]) Type 2 diabetes mellitus with stage 3b chronic kidney disease, without long-term current use of insulin (HCC) ([facility]) Peripheral vascular disease, unspecified (I73.9) Peripheral vascular disease, unspecified Type 2 diabetes mellitus with hyperglycemia, without long-term current use of insulin ([facility])- Primary Benign essential hypertension ([facility]) Essential hypertension, benign Chronic heart failure with preserved ejection fraction (HFpEF) ([facility]) DDD (degenerative disc disease), lumbar Degeneration of lumbar or lumbosacral intervertebral disc Chronic obstructive pulmonary disease, unspecified COPD type ([facility]) Dyslipidemia ([facility]) Other and unspecified hyperlipidemia Stage 3b chronic kidney disease (CKD) ([facility]) Encounter for long-term (current) use of medications Encounter for long-term (current) use of other medications Screening PSA (prostate specific antigen) Special screening for malignant neoplasm of prostate Bilateral primary osteoarthritis of knee Bilateral primary osteoarthritis of knee documented in this encounter [facility] History general Narrative - Reported Note Date [...] History FATIGUE Surgical History [facility] 09-14 Surgical History OPEN HEART 11-28-2017 Hospitalization History SEE ABOVE Hospitalization History pneumonia ZAO Begun Other Summary Purpose Family History No Family [...] section and content) DATE CREATED AUTHOR 03/16/2018 [facility] DATE CREATED AUTHOR AUTHOR'S ORGANIZ ATION 12/30/2022 [facility] DATE CREATED AUTHOR AUTHOR'S ORGANIZ ATION 06/13/2024 [facility] EPIC DATE CREATED AUTHOR AUTHOR'S ORGANIZ ATION 06/26/2024 [facility] REASON FOR VISIT (unrecogniz ed section and content) Reason Comments Med Refill Care Teams (unrecognized sec tion and content) Hepatologist Relationship Specialty Start Date End Date Riley Madrigal MD [address] [place] [id number] PCP - General Family Medicine 10/17/23 Hepatologist Relationship Specialty Start Date End Date Riley Madrigal MD [address] [place] [id number] PCP - General Family Medicine 10/17/23 Hepatologist Relationship Specialty Start Date End Date Riley Madrigal MD [address] [place] [phone] PCP - General Family Medicine 10/17/23 FOR RECORDS PERTAINING TO PATIENTS WHO ARE [...] BE BASED ON THE PRIMARY CLINICAL RECORDS. [employer] provides no warranty or guarantee of the accuracy or completeness of information in this document.
[2024-11-06 12:02] LABS: INR 0.96; Partial Thromboplastin Time 23.3 sec (22.3-36.2); Prothrombin Time 10.2 sec (9.0-11.6)
[2024-11-06 12:09] LABS: Alanine Aminotransferase 29 U/L (16-63); Albumin Globulin Ratio 0.9; Albumin Level 3.6 g/dL (3.4-5.0); Alkaline Phosphatase 207 U/L (46-116); Anion Gap 20.4; Aspartate Amino Transferase 45 U/L (15-37); BUN Creatinine Ratio 13.1; Bilirubin Direct 0.1 mg/dL (0.0-0.2); Bilirubin Total 0.3 mg/dL (0.2-1.0); Calcium 8.6 mg/dL (8.5-10.1); Carbon Dioxide 19.3 mmol/L (21.0-32.0); Chloride 107 mmol/L (98-107); Estimated GFR (African America 25 (>=60 mL/min/1.73m^2); Estimated GFR (Non-African Ame 20 (>=60 mL/min/1.73m^2); Globulin 4.2 g/dL; Glucose 161 mg/dL (74-106); Potassium 5.7 mmol/L (3.5-5.1); Sodium 141 mmol/L (136-145); Total Protein 7.8 g/dL (6.4-8.2); Troponin I High Sensitivity 6.1 pg/mL (4.0-76.1)
[2024-11-06] MEDS: HYDROMORPHONE HCL 0.5 MG/0.5 ML SYRINGE IV (12:09)
[2024-11-06] MEDS: 0.9 % SODIUM CHLORIDE 1,000 ML 125 ML IV (12:09)
[2024-11-06] MEDS: ONDANSETRON PF 4 MG/2 ML VIAL IV (12:09)
[2024-11-06] MEDS: IPRATROPIUM/ALBUTEROL SULFATE 3 ML AMPUL.NEB IH (14:23)
[2024-11-06 14:43] LABS: Anion Gap 20.7; Calcium 8.3 mg/dL (8.5-10.1); Carbon Dioxide 17.1 mmol/L (21.0-32.0); Chloride 109 mmol/L (98-107); Estimated GFR (African America 28 (>=60 mL/min/1.73m^2); Estimated GFR (Non-African Ame 23 (>=60 mL/min/1.73m^2); Glucose 129 mg/dL (74-106); Potassium 5.8 mmol/L (3.5-5.1); Sodium 141 mmol/L (136-145); Troponin I High Sensitivity 4.6 pg/mL (4.0-76.1)
[2024-11-06] MEDS: SODIUM ZIRCONIUM CYCLOSILICATE 10 GM POWD.PACK PO (15:01)
--- NOTE | 2024-11-06 16:28 | ED_ITS ---
HPI HPI - General Adult General Chief complaint: Chest Pain Stated complaint: CHEST PAINS SOB Time Seen by Provider: 11/06/24 11:33 Source: patient Mode of arrival: ambulance Limitations: no limitations History of Present Illness HPI narrative: Patient was at work today at the [employer] when he started feeling short of breath. Very quickly he felt as though he could not exhale properly. His chest started hurting at that time. EMS was activated and his oxygen saturation at the scene was 81% and improved with supplemental oxygen. He was given Solu- Medrol, Zofran and Narcan IV. Upon arrival to the ED patient appeared in respiratory distress and was placed on BiPAP. He underwent coronary artery bypass and graft over 10 years ago. He has known chronic kidney disease and a history of asthma and COPD. He uses albuterol inhaler 3-4 times a day for this. He states that he stopped smoking several years ago. Related Data Home Medications ?Medication ?Instructions ?Recorded ?Confirmed albuterol sulfate 90 mcg/actuation 2 inh inhalation Q4H PRN shortness 11/18/23 11/06/24 aerosol inhaler of breath or wheezing amlodipine 5 mg tablet 5 mg PO DAILY 11/18/23 11/06/24 atorvastatin 80 mg tablet 80 mg PO BEDTIME 11/18/23 11/06/24 carvedilol 12.5 mg tablet 12.5 mg PO Q12H 11/18/23 11/06/24 dapagliflozin propanediol 10 mg 10 mg PO DAILY 11/18/23 11/06/24 tablet (Farxiga) furosemide 40 mg tablet 40 mg PO DAILY 11/18/23 11/06/24 lisinopril 10 mg tablet 10 mg PO DAILY 11/18/23 11/06/24 omeprazole 40 mg capsule,delayed 40 mg PO DAILY 11/18/23 11/06/24 release tiotropium 2.5 mcg-olodaterol 2.5 2 puff inhalation Q24H 11/18/23 11/18/23 mcg/actuation mist for inhalation (Stiolto Respimat) tramadol 50 mg tablet 50 mg PO Q4H PRN pain 11/18/23 11/06/24 Previous Rx's ?Medication ?Instructions ?Recorded albuterol sulfate 90 mcg/actuation 1 inh inhalation QID PRN shortness 11/06/24 breath activated powder of breath or wheezing #1 ea inhaler,sensor (Proair Digihaler) prednisone 20 mg tablet 20 mg PO DAILY 5 days #5 tabs 11/06/24 Allergies Allergy/AdvReac Type Severity Reaction Status Date / Time No Known Drug Allergies Allergy Verified 11/06/24 11:35 Opioid HPI Opioid Management Most Recent Opioid Data: Last Pain Scale 10 11/06/24 12:09 11/06/24 Last MAR Pain Assessment 11/06/24 12:09 PFSH PFSH Medical History Diabetes ?E11.9 - Type 2 diabetes mellitus without complications (ICD-10) Chronic kidney disease ?N18.9 - Chronic kidney disease, unspecified (ICD-10) COPD (chronic obstructive pulmonary disease) ?J44.9 - Chronic obstructive pulmonary disease, unspecified (ICD-10) GERD (gastroesophageal reflux disease) ?K21.9 - Gastro-esophageal reflux disease without esophagitis (ICD-10) HTN (hypertension) ?I10 - Essential (primary) hypertension (ICD-10) Surgical History Hip joint replacement status ?Z96.649 - Presence of unspecified artificial hip joint (ICD-10) Hx of CABG ?Z95.1 - Presence of aortocoronary bypass graft (ICD-10) Social History Smoking status: Former smoker Little interest or pleasure in doing things: not at all Feeling down, depressed, or hopeless: not at all Exam Narrative Exam Narrative: Patient appears in acute distress upon arrival. He has been placed on BiPAP by the respiratory therapist upon arrival. He is oxygenating well at 100% on BiPAP. He is afebrile. HEENT exam is normal to inspection. Neck is supple. Lung sounds are diminished throughout with scattered rhonchi. Heart has regular rate and rhythm. Abdomen is soft and not distended and nontender. Lower extremities are warm and dry and he does not have unilateral leg swelling or calf tenderness. Constitutional Vital Signs, click to edit/add: Last Vital Signs Temp 98.6 F 11/06/24 11:35 Pulse 71 11/06/24 15:00 Resp 14 11/06/24 15:00 BP 140/114 H 11/06/24 12:06 Pulse Ox 94 L 11/06/24 15:00 O2 Del Method Room Air 11/06/24 14:28 O2 Flow Rate 5 11/06/24 11:35 FiO2 35 11/06/24 12:13 Course Vital Signs Vital signs: Vital Signs Temperature 98.6 F 11/06/24 11:35 Pulse Rate 72 11/06/24 11:35 Respiratory Rate 24 H 11/06/24 11:35 Blood Pressure 144/94 H 11/06/24 11:35 Pulse Oximetry 100 11/06/24 11:35 Oxygen Delivery Method Nasal Cannula 11/06/24 11:35 Oxygen Delivery Flow Rate 5 11/06/24 11:35 Temperature 98.6 F 11/06/24 11:35 Pulse Rate 71 11/06/24 15:00 Respiratory Rate 14 11/06/24 15:00 Blood Pressure 140/114 H 11/06/24 12:06 Pulse Oximetry 94 L 11/06/24 15:00 Oxygen Delivery Method Room Air 11/06/24 14:28 Oxygen Delivery Flow Rate 11/06/24 11:35 Fraction of Inspired Oxygen 35 11/06/24 12:13 Medical Decision Making MDM Narrative Medical decision making narrative: The twelve-lead EKG was interpreted by me. Shows normal sinus rhythm with a rate of 66 bpm and no acute ischemic findings. The white count is normal at 15.8 with a hemoglobin of 9.2 which is close to his baseline. Platelets are normal. Electrolytes are significant for an elevated potassium of 5.7. BUN and creatinine were elevated consistent with chronic kidney disease when compared with previous studies. Patient received almost a liter of IV saline in the ED. Over the next couple hours he was weaned off BiPAP and on room air was now maintaining an oxygen saturation in the high 90s. He did not have any dyspnea and was speaking normally. He felt much better. I feel that he had an acute asthma attack. His potassium was repeated and it is 5.8. This specimen was drawn from a superficial peripheral vein on the forearm and there may be some hemolysis. I have given him 10 g of Lokelma p.o. and a DuoNeb aerosol treatment. He does not see a manager of hospital and I have advised that he contact his PCP within the next day or 2 and also seek referral to a manager of hospital for management of his chronic kidney disease. He will need a potassium level repeated in the next day or 2 to ensure that it is not going up. A prescription was provided to him for prednisone 20 mg daily for 7 days to be started tomorrow and he was also provided a prescription for albuterol inhaler. Patient was advised to return to the emergency department for any worsening symptoms Lab Data Labs: Lab Results 11/06/24 11/06/24 Range/Units 11:38 14:20 WBC 15.8 H (4.0-11.0) 10^3/uL RBC 3.18 L (4.70-6.10) 10^6/uL Hgb 9.2 L (14.0-18.0) g/dL Hct 31.0 L (42.0-54.0) % MCV 97.5 H (80.0-94.0) fL MCH 28.9 (25.9-34.0) pg MCHC 29.7 L (29.9-35.2) g/dL RDW 18.0 H (11.0-15.0) % Plt Count 189 (150-450) 10^3/uL MPV 10.7 (9.5-13.5) fL Neut % (Auto) 72.2 (43.0-75.0) % Lymph % (Auto) 17.5 L (20.5-60.0) % [place] % (Auto) 6.5 (1.7-12.0) % Eos % (Auto) 2.4 (0.9-7.0) % Baso % (Auto) 0.6 (0.2-2.0) % Neut # (Auto) 11.4 H (1.4-6.5) 10^3/uL Lymph # (Auto) 2.8 (1.2-3.8) 10^3/uL [place] # (Auto) 1.0 H (0.3-0.8) 10^3/uL Eos # (Auto) 0.4 (0.0-0.7) 10^3/uL Baso # (Auto) 0.1 (0.0-0.1) 10^3/uL Abs Immat Gran (auto) 0.13 H (0.00-0.03) 10^3/uL Imm/Tot Granulo (auto) 0.8 H (0.0-0.5) % PT 10.2 (9.0-11.6) sec INR 0.96 APTT 23.3 (22.3-36.2) sec Sodium 141 141 (136-145) mmol/L Potassium 5.7 H 5.8 H (3.5-5.1) mmol/L Chloride 107 109 H (98-107) mmol/L Carbon Dioxide 19.3 L 17.1 L (21.0-32.0) mmol/L Anion Gap 20.4 20.7 BUN 41.0 H 43.0 H (7.0-18.0) mg/dL Creatinine 3.14 H 2.87 H (0.70-1.30) mg/dL Est GFR ( Amer) 25 L 28 L (>=60 mL/min/1.73m^2) Est GFR (Non-Af Amer) 20 L 23 L (>=60 mL/min/1.73m^2) BUN/Creatinine Ratio 13.1 15.0 Glucose 161 H 129 H (74-106) mg/dL Calcium 8.6 8.3 L (8.5-10.1) mg/dL Total Bilirubin 0.3 (0.2-1.0) mg/dL Direct Bilirubin 0.1 (0.0-0.2) mg/dL AST 45 H (15-37) U/L ALT 29 (16-63) U/L Alkaline Phosphatase 207 H (46-116) U/L Troponin I High Sens 6.1 4.6 (4.0-76.1) pg/mL NT-Pro-B Natriuret Pep 260.0 (<=900.0) pg/mL Total Protein 7.8 (6.4-8.2) g/dL Albumin 3.6 (3.4-5.0) g/dL Globulin 4.2 g/dL Albumin/Globulin Ratio 0.9 Lipase 151.0 H (16.0-77.0) U/L Discharge Plan Discharge Chief Complaint: Chest Pain Clinical Impression: Acute exacerbation of chronic obstructive pulmonary disease, Hyperkalemia CKD (chronic kidney disease) Qualifiers: Chronic kidney disease stage: unspecified stage Qualified Code(s): N18.9 - Chronic kidney disease, unspecified Patient Disposition: Home, Self-Care Time of Disposition Decision: 15:40 Condition: Fair Mode of Transportation: Private Vehicle Prescriptions / Home Meds: New Proair Digihaler 90 mcg/actuation aero powdr breath act w/sensor 1 inh inhalation QID PRN (Reason: shortness of breath or wheezing) Qty: 1 0RF prednisone 20 mg tablet 20 mg PO DAILY 5 Days Qty: 5 0RF Rx Instructions: days 11-21 of therapy No Action albuterol sulfate 90 mcg/actuation HFA aerosol inhaler 2 inh INHALATION Q4H PRN (Reason: shortness of breath or wheezing) amlodipine 5 mg tablet 5 mg PO DAILY atorvastatin 80 mg tablet 80 mg PO BEDTIME carvedilol 12.5 mg tablet 12.5 mg PO Q12H dapagliflozin propanediol [Farxiga] 10 mg tablet 10 mg PO DAILY furosemide 40 mg tablet 40 mg PO DAILY lisinopril 10 mg tablet 10 mg PO DAILY omeprazole 40 mg capsule,delayed release(DR/EC) 40 mg PO DAILY Stiolto Respimat 2.5-2.5 mcg/actuation mist 2 puff INHALATION Q24H tramadol 50 mg tablet 50 mg PO Q4H PRN (Reason: pain) Print Language: Croatian Instructions: COPD (Chronic Obstructive Pulmonary Disease) (ED), Hyperkalemia ( ED) Additional Instructions: Contact your PCP within 1 to 2 days for recheck. You will need a potassium level rechecked and I recommend that you also start following up with a manager of hospital for your kidney disease. Prednisone as prescribed you may start taking it tomorrow morning. Return anytime for worsening symptoms. Referrals: Riley Darling MD [Primary Care Provider] - 1 week Discharge Date/Time: 11/06/24 15:55
== END 2024-11-06 15:55 | disposition home or self-care (01) ==
PROVIDERS: Emergency Provider Emergency Medicine; PCP Family Medicine
DX: J44.1 Chronic obstructive pulmonary disease with (acute) exacerbation (principal); E87.5 Hyperkalemia; Z95.1 Presence of aortocoronary bypass graft; N18.9 Chronic kidney disease, unspecified; Z87.891 Personal history of nicotine dependence; Z79.899 Other long term (current) drug therapy
CPT/HCPCS: 36415; 71045; 80048; 80076; 83690; 83880; 84484; 85025; 85610; 85730; 93005; 94640; 94660; 96374; 96375; 99285; J1171; J2405

== ENCOUNTER 2024-12-03 09:52 | Outpatient (OUT) | payer OTHER, SELFPAY ==
[2024-12-03 11:07] LABS: BUN Creatinine Ratio 14.7; Carbon Dioxide 22.7 mmol/L (21.0-32.0); Chloride 110 mmol/L (98-107); Estimated GFR (African America 35 (>=60 mL/min/1.73m^2); Estimated GFR (Non-African Ame 29 (>=60 mL/min/1.73m^2); Glucose 115 mg/dL (74-106); Potassium 4.7 mmol/L (3.5-5.1); Sodium 143 mmol/L (136-145); Triglycerides 212 mg/dL (<=150)
[2024-12-03 11:08] LABS: Chol HDL Ratio 2.6; Cholesterol 159 mg/dL (<=200); HDL Cholesterol 62 mg/dL (40-60); VLDL CHOLESTEROL 42.4 mg/dL
== END 2024-12-03 09:53 | disposition home or self-care (01) ==
PROVIDERS: PCP Family Medicine; Visit Provider Nurse Practitioner Family
DX: E78.2 Mixed hyperlipidemia (principal)
CPT/HCPCS: 36415; 80048; 80061

== ENCOUNTER 2024-12-12 13:35 | Outpatient (OUT) | payer OTHER, SELFPAY ==
[2024-12-12 14:08] LABS: Basophils Absolute Auto 0.1 10^3/uL (0.0-0.1); Basophils Percent Auto 0.8 % (0.2-2.0); Eosinophils Absolute Auto 0.3 10^3/uL (0.0-0.7); Eosinophils Percent Auto 3.1 % (0.9-7.0); Hematocrit 27.9 % (42.0-54.0); Hemoglobin 8.7 g/dL (14.0-18.0); Immature Granulocytes Abs Auto 0.08 10^3/uL (0.00-0.03); Lymphocytes Absolute Auto 2.1 10^3/uL (1.2-3.8); Mean Corpuscular HGB Conc 31.2 g/dL (29.9-35.2); Mean Corpuscular Hemoglobin 29.1 pg (25.9-34.0); Mean Corpuscular Volume 93.3 fL (80.0-94.0); Mean Platelet Volume 10.3 fL (9.5-13.5); Monocytes Absolute Auto 0.4 10^3/uL (0.3-0.8); Monocytes Percent Auto 4.9 % (1.7-12.0); Neutrophils Absolute Auto 5.4 10^3/uL (1.4-6.5); Neutrophils Percent Auto 65.2 % (43.0-75.0); Platelet Count 289 10^3/uL (150-450); Red Blood Count 2.99 10^6/uL (4.70-6.10); Red Cell Distribution Width 17.8 % (11.0-15.0); White Blood Count 8.3 10^3/uL (4.0-11.0)
[2024-12-12 14:29] LABS: Estimated Average Glucose 105 mg/dL; Glycohemoglobin A1C 5.3 % (4.5-6.2)
[2024-12-12 14:33] LABS: Alanine Aminotransferase 24 U/L (16-63); Albumin Globulin Ratio 1.2; Albumin Level 3.9 g/dL (3.4-5.0); Alkaline Phosphatase 141 U/L (46-116); Aspartate Amino Transferase 40 U/L (15-37); Bilirubin Direct 0.1 mg/dL (0.0-0.2); Bilirubin Total 0.3 mg/dL (0.2-1.0); Globulin 3.2 g/dL; Total Protein 7.1 g/dL (6.4-8.2)
[2024-12-12 14:57] LABS: Prostate Specific Antigen Scrn 1.05 ng/mL (<=4.00)
[2024-12-12 15:10] LABS: Creatinine Urine Random 149.21 mg/dL (20.00-300.00); Microalbum Creatinine Ratio Ur 8.7 mg/g (0.0-29.9); Microalbumin Urine Random <1.3 mg/dL (<=30.0)
== END 2024-12-12 13:36 | disposition home or self-care (01) ==
LOC: LAB 13:37
PROVIDERS: PCP Family Medicine; Visit Provider Family Medicine
DX: E11.65 Type 2 diabetes mellitus with hyperglycemia (principal); Z79.899 Other long term (current) drug therapy; Z12.5 Encounter for screening for malignant neoplasm of prostate
CPT/HCPCS: 36415; 80076; 82043; 82570; 83036; 85025; G0103

== ENCOUNTER 2024-12-12 13:39 | Outpatient (OUT) | payer OTHER, SELFPAY ==
[2024-12-12 14:26] LABS: BUN Creatinine Ratio 15.4; Calcium 8.8 mg/dL (8.5-10.1); Carbon Dioxide 17.8 mmol/L (21.0-32.0); Chloride 109 mmol/L (98-107); Estimated GFR (African America 28 (>=60 mL/min/1.73m^2); Estimated GFR (Non-African Ame 23 (>=60 mL/min/1.73m^2); Glucose 108 mg/dL (74-106); Potassium 5.8 mmol/L (3.5-5.1); Sodium 141 mmol/L (136-145)
== END 2024-12-12 13:40 | disposition home or self-care (01) ==
LOC: LAB 13:40
PROVIDERS: PCP Family Medicine; Visit Provider Nurse Practitioner Family
DX: I11.9 Hypertensive heart disease without heart failure (principal); E11.65 Type 2 diabetes mellitus with hyperglycemia; Z79.899 Other long term (current) drug therapy; Z12.5 Encounter for screening for malignant neoplasm of prostate
CPT/HCPCS: 36415; 80048; 80076; 82043; 82570; 83036; 85025; G0103